=== PATIENT | female | born 1955 | race Caucasian/White ===

== ENCOUNTER 2016-05-17 17:54 | Inpatient (IN) | payer OTHER ==
[~2016-05-17] VITALS: Ht 170.2 cm; Wt 58.8 kg
[~2016-05-17 17:54] MED LIST: 1-ME1LIQ PO; ALPR0.5T99 PO; CHOL50006 PO; LACTATED RINGER'S 1000 ML INJ 1,000 ML IV ONE; LEVEMIR SQ; METO25 PO; OMEP20TA39 PO; OTHER; PHENYLEPH/NS 1000 MCG/10 ML SYR IV ONE; PREG100 PO; PROPOFOL 200 MG/20 ML AMP IV ONE
[2016-05-17 18:01] VITALS: BP 139/71; PULSE 112; RESP 12; TEMP 97.6; O2SAT 98
--- NOTE | 2016-05-17 19:16 | PD ---
HPI Chief Complaint: Psychiatric Symptoms Time Seen by Provider: 19:16 Travel History International Travel<30 days: No Contact w/Intl Traveler<30days: No Traveled to known affect area: No History of Present Illness HPI 61-year-old female with Hep C hypertension, diabetes, presents to emergency department at the instruction of her primary care provider Dr. Torrez for evaluation. Pt states that she was also diagnosed with HIV 8 months ago and does not know her CD4 count- I do not see this in the pt's history. Patient's dog passed was last week and she has been increasingly depressed. She has not been getting out of bed. She has not been taking her medications. She has not been eating or drinking. Patient fell 2 days ago and struck her head. She is accompanied by a female friend or family member who states that she has been more disoriented and confused lately. She states that she has been less steady on her feet. No recent illnesses, fever, chills. No chest pain or tightness. No other focal deficits or weakness. PFSH Past Medical History Arthritis: No Autoimmune Disease: Yes Blood Disorders: No Anxiety: Yes Cancer: No Cardiovascular Problems: No Diabetes: Yes Diminished Hearing: No Endocrine: Yes Gastrointestinal Disorders: Yes (ACID REFLUX ) Glaucoma: No Genitourinary: No Hepatitis: Yes (HEPATITIS C ) Hiatal Hernia: No Hypertension: Yes Immune Disorder: No Implanted Vascular Access Dvce: No Musculoskeletal: No Neurologic: Yes (NEUROPATHY BOTH FEET) Psychiatric: Yes (ANXIETY; SITUATIONAL DEPRESSION ) Reproductive: No Respiratory: No Thyroid Disease: No PNEUMOCCOCAL Vaccine (Year): 2 Menopausal: Yes Tubal Ligation: Yes Past Surgical History Abdominal Surgery: No AICD: No Body Medical Devices: NONE Cardiac Surgery: No Ear Surgery: No Endocrine Surgery: No Eye Surgery: Yes (LEFT/RIGHT CATARACT WITH LENS, UPPER LID BLEPHROPLASTY) Genitourinary Surgery: No Gynecologic Surgery: Yes (TUBAL LIGATION) Joint Replacement: No Oral Surgery: Yes (T & A) Pacemaker: No Thoracic Surgery: No Tonsillectomy: Yes Other Surgery: Yes Social History Alcohol Use: No Tobacco Use: No Substance Use: No Allergies-Medications (Allergen,Severity, Reaction): Coded Allergies: Iohexol (OMNIPAQUE) (Verified Allergy, Severe, Hives, 07/06/15) date of allergy 2/27/12: facial hives and itching Codeine (Verified Adverse Reaction, Severe, NAUSEA, 07/06/15) Reported Meds & Prescriptions Reported Meds & Active Scripts Active Reported [Other] WEEKLY Vitamin D (Cholecalciferol) 5,000 Unit Tab 2,000 Unit PO DAILY Amlodipine Besylate 10 mg (Amlodipine Besylate) 10 Mg Tab 1 Tab PO DAILY Metoprolol Tartrate 25 mg (Metoprolol Tartrate) 25 Mg Tab 25 Mg PO BID Hm Omeprazole (Omeprazole) 20 Mg Tab 20 Mg PO DAILY Levemir Insulin (Insulin Detemir) 100 Units/Ml Inj 10 Units SQ BID Lyrica (Pregabalin) 100 Mg Cap 100 Mg PO BID Xanax (Alprazolam) 0.5 Mg Tab 0.5 Mg PO DAILYPRN Review of Systems Except as stated in HPI: all other systems reviewed are Neg Physical Exam Narrative GENERAL: Thin female patient, sitting in her wheelchair, lethargic but participating in conversation slowly and with some confusion. Oriented to self and knows she is in the hospital SKIN: Warm and dry. HEAD: Normocephalic. EYES: No scleral icterus. No injection or drainage. ENT: No nasal bleeding or discharge. Mucous membranes pink and moist. NECK: Trachea midline. No JVD. CARDIOVASCULAR tachycardic rate and rhythm. No murmur appreciated. RESPIRATORY: No accessory muscle use. Clear to auscultation. Breath sounds equal bilaterally. GASTROINTESTINAL: Abdomen soft, non-tender, nondistended. Hepatic and splenic margins not palpable. MUSCULOSKELETAL: No obvious deformities. No clubbing. No cyanosis. No edema. NEUROLOGICAL: Awake and alert. No obvious cranial nerve deficits. Motor grossly within normal limits. Normal speech. PSYCHIATRIC: Appropriate mood and affect; insight and judgment normal. Data Data Last Documented VS Vital Signs Date Time Temp Pulse Resp B/P Pulse Ox O2 Delivery O2 Flow Rate FiO2 05/17/16 18:01 97.6 112 12 139/71 98 Room Air Orders Electrocardiogram (05/17/16 19:14) Complete Blood Count With Diff (05/17/16 19:14) Comprehensive Metabolic Panel (05/17/16 19:14) Prothrombin Time / Inr (Pt) (05/17/16 19:14) Act Partial Throm Time (Ptt) (05/17/16 19:14) Lactic Acid Sepsis Protocol (05/17/16 19:14) Magnesium (Mg) (05/17/16 19:14) Ckmb (Isoenzyme) Profile (05/17/16 19:14) Troponin I (05/17/16 19:14) Urinalysis - C+S If Indicated (05/17/16 19:14) Blood Culture (05/17/16 19:14) Chest, Single Ap (05/17/16 19:14) Ct Brain W/O Iv Contrast(Rout) (05/17/16 19:14) Drug Screen, Random Urine (05/17/16 20:13) Alcohol (Ethanol) (05/17/16 20:13) Labs Laboratory Tests Test 05/17/16 19:23 White Blood Count 9.1 TH/MM3 Red Blood Count 4.02 MIL/MM3 Hemoglobin 14.9 GM/DL Hematocrit 43.9 % Mean Corpuscular Volume 109.2 FL Mean Corpuscular Hemoglobin 37.0 PG Mean Corpuscular Hemoglobin 33.9 % Concent Red Cell Distribution Width 14.1 % Platelet Count 259 TH/MM3 Mean Platelet Volume 9.4 FL Neutrophils (%) (Auto) 77.8 % Lymphocytes (%) (Auto) 11.6 % Monocytes (%) (Auto) 10.3 % Eosinophils (%) (Auto) 0.1 % Basophils (%) (Auto) 0.2 % Neutrophils # (Auto) 7.1 TH/MM3 Lymphocytes # (Auto) 1.1 TH/MM3 Monocytes # (Auto) 0.9 TH/MM3 Eosinophils # (Auto) 0.0 TH/MM3 Basophils # (Auto) 0.0 TH/MM3 CBC Comment DIFF FINAL Differential Comment Prothrombin Time 12.2 SEC Prothromb Time International 1.1 RATIO Ratio Activated Partial 27.9 SEC Thromboplast Time Lactic Acid Level 1.9 mmol/L MDM Medical Decision Making Medical Screen Exam Complete: Yes Emergency Medical Condition: Yes Medical Record Reviewed: Yes Differential Diagnosis Intracranial hemorrhage versus elective right abnormality versus dehydration versus AIDS Narrative Course 61-year-old female presents to emergency department for evaluation. Workup was initiated in triage. 1946 patient is brought back CT and I am told by the it service technician the patient has a subdural hemorrhage with a shift. Patient is transferred immediately to a medical bed. 2019 I contacted Janice Samayoa listed as person to contact in summary. she initially brought the pt to the hospital. I briefed her on the pt's diagnosis and asked her to return to the ED. Condition: Stable Shanna Sanchez May 17, 2016 19:16
--- NOTE | 2016-05-17 19:58 | RADRPT ---
EXAM DATE/TIME: 05/17/2016 19:39 [facility] COMPARISON: CT BRAIN W/O CONTRAST, July 06, 2015, 10:09. INDICATIONS : Altered mental status. Possible trauma. RADIATION DOSE: 43.27 CTDIvol (mGy) MEDICAL HISTORY : Hypertension. Hepatitis C. SURGICAL HISTORY : Tonsillectomy. Tubal ligation. ENCOUNTER: Initial ACUITY: 3 days PAIN SCALE: 5/10 LOCATION: cranial TECHNIQUE: Multiple contiguous axial images were obtained of the head. Using automated exposure control and adj ustment of the mA and/or kV according to patient size, radiation dose was kept as low as reasonably a chievable to obtain optimal diagnostic quality images. FINDINGS: There is an acute subdural hematoma tracking along the falx. This measures 9 mm in thickness. A subac melvina to chronic subdural hematoma overlies the left cerebral hemisphere. The thickest component is 16 mm overlying the left frontotemporal lobe. There is 13 mm of [id number] midline shift with partial effacement of the left lateral ventricle. There is obscuration of the suprasellar cistern consistent with uncal herniation. Posterior cranial fossa is unremarkable. Edema is seen throughout the left ce rebral hemisphere with effacement of the sulcal pattern. Calvarium is intact. CONCLUSION: 1. Acute subdural hematoma along the falx with a subacute to chronic subdural hematoma overlying the left cerebral hemisphere with 13 mm of midline shift as well as uncal herniation. Ashish Roth Jr., MD on May 17, 2016 at 19:52 Board Certified Radiologist. This report was verified electronically.
[2016-05-17 20:04] LABS: AUTOMATED NEUTROPHIL # 7.1 TH/MM3 (1.8-7.7); BASOPHIL % 0.2 % (0.0-2.0); EOSINOPHIL % 0.1 % (0.0-4.0); HEMATOCRIT 43.9 % (35.0-46.0); HEMO FLAGS DIFF FINAL; LYMPH % 11.6 % (9.0-44.0); LYMPHOCYTE # 1.1 TH/MM3 (1.0-4.8); MEAN CELL VOLUME 109.2 FL (80.0-100.0); MEAN CORPUSCULAR HGB CONC 33.9 % (32.0-36.0); MONO % 10.3 % (0.0-8.0); NEUT % 77.8 % (16.0-70.0); PLATELET COUNT 259 TH/MM3 (150-450); RED BLOOD COUNT 4.02 MIL/MM3 (4.00-5.30); RED CELL DISTRIBUTION WIDTH 14.1 % (11.6-17.2); WHITE BLOOD COUNT 9.1 TH/MM3 (4.0-11.0)
[2016-05-17 20:12] LABS: APTT (PATIENT) 27.9 SEC (24.3-30.1); INTERNATIONAL NORMALIZED RATIO 1.1 RATIO; PROTHROMBIN TIME - PATIENT 12.2 SEC (9.8-11.6)
--- NOTE | 2016-05-17 20:25 | RADRPT ---
EXAM DATE/TIME: 05/17/2016 20:00 [facility] COMPARISON: No previous studies available for comparison. INDICATIONS : Short of breath. MEDICAL HISTORY : Stroke. SURGICAL HISTORY : None. ENCOUNTER: Initial ACUITY: 1 day PAIN SCORE: Non-responsive. LOCATION: Bilateral chest FINDINGS: A single view of the chest demonstrates the lungs to be symmetrically aerated without evidence of mas s, infiltrate or effusion. The cardiomediastinal contours are unremarkable. Osseous structures are intact. CONCLUSION: No acute disease. Ashish Roth Jr., MD on May 17, 2016 at 20:24 Board Certified Radiologist. This report was verified electronically.
[2016-05-17 20:29] LABS: ALT (GPT) 43 U/L (10-53); ANION GAP 22 MEQ/L (5-15); AST (GOT) 30 U/L (15-37); BICARBONATE 9.4 MEQ/L (21.0-32.0); BLOOD UREA NITROGEN 11 MG/DL (7-18); CHLORIDE 101 MEQ/L (98-107); GLOMERULAR FILTRATION RATE 68 ML/MIN (>89); MAGNESIUM 2.1 MG/DL (1.5-2.5); POTASSIUM 3.5 MEQ/L (3.5-5.1); SODIUM (NA) 132 MEQ/L (136-145)
[2016-05-17 20:32] LABS: ALKALINE PHOSPHATASE 127 U/L (45-117); TOTAL BILIRUBIN ADULT 1.4 MG/DL (0.2-1.0)
[2016-05-17 20:34] LABS: CREATINE KINASE 29 U/L (26-192)
[2016-05-17] MEDS ORDERED: GENTAMICIN SULFATE 80 MG/2 ML VIAL ONE (20:36)
--- NOTE | 2016-05-17 20:37 | PD ---
Physical Exam Narrative General: The patient is well-developed well-nourished female in no acute distress, tremulous on examination when asked why she reports she feels ill. She reports that she fell and now has a mild headache. Head and Neck exam: Head is normocephalic atraumatic. Eyes: EOMI, the patient's left pupil on examination is slightly larger than the right. This is so subtle that it's difficult to say if this is a legitimate finding. Nose: Midline septum with pink mucous membranes Mouth: Dentition unremarkable. Moist mucus membranes. Posterior oropharynx is not erythematous. No tonsillar hypertrophy. Uvula midline. Airway patent. Neck: No palpable lymphadenopathy. No nuchal rigidity. No thyromegaly. Cardiovascular: Sinus tachycardia in the low 100s without murmurs, gallops, or rubs. No pulse deficits of the extremities on simultaneous auscultation and palpation of her radial artery. Lungs: Clear to auscultation bilaterally. No wheezes, rhonchi, or rales. Abdomen: Soft, without tenderness to palpation in all 4 quadrants of the abdomen. No guarding, rebound, or rigidity. Normal bowel sounds are audible. The patient has some bruising noted to the upper abdomen that appears to be patchy. These are older appearing small bruises. These may be related to subcutaneous injections. Extremities: No clubbing, cyanosis, or edema. 2+ pulses in all 4 extremities. No calf tenderness on palpation. Neurologic Exam: She is oriented to person, however not time Cranial nerves 2-12 were intact on exam. Strength is 5/5 in all 4 extremities. No sensory deficits noted. No dysdiadochokinesis. Good finger to nose and Heel to reid bilaterally. No clonus. The patient does have asterixis. The patient has tremulousness most prominent in bilateral upper extremities both active and resting tremor. Skin Exam: No rash noted. Intact skin that is warm and dry. Data Data Last Documented VS Vital Signs Date Time Temp Pulse Resp B/P Pulse Ox O2 Delivery O2 Flow Rate FiO2 05/17/16 18:01 97.6 112 12 139/71 98 Room Air Orders Electrocardiogram (05/17/16 19:14) Complete Blood Count With Diff (05/17/16 19:14) Comprehensive Metabolic Panel (05/17/16 19:14) Prothrombin Time / Inr (Pt) (05/17/16 19:14) Act Partial Throm Time (Ptt) (05/17/16 19:14) Lactic Acid Sepsis Protocol (05/17/16 19:14) Magnesium (Mg) (05/17/16 19:14) Ckmb (Isoenzyme) Profile (05/17/16 19:14) Troponin I (05/17/16 19:14) Urinalysis - C+S If Indicated (05/17/16 19:14) Blood Culture (05/17/16 19:14) Chest, Single Ap (05/17/16 19:14) Ct Brain W/O Iv Contrast(Rout) (05/17/16 19:14) Drug Screen, Random Urine (05/17/16 20:13) Alcohol (Ethanol) (05/17/16 20:13) Gentamicin Inj (Gentamicin Inj) (05/17/16 20:36) Admit To Inpatient (05/17/16 ) Vital Signs (Adult) Q1H (05/17/16 20:39) Neuro Checks Q1H (05/17/16 20:39) Ot Request For Service (05/17/16 20:39) Consult Pt Eval & Treat (05/17/16 20:39) Case Management Consult (05/17/16 ) ^ Elevate Head Of Bed (05/17/16 20:39) Insert Ng Tube (05/17/16 20:39) Complete Blood Count With Diff (05/18/16 06:00) Basic Metabolic Panel (Bmp) (05/18/16 06:00) Prothrombin Time / Inr (Pt) (05/18/16 06:00) Hepatic Functional Panel (05/18/16 06:00) Fibrinogen (05/18/16 06:00) Ct Brain W/O Iv Contrast(Rout) (05/18/16 06:00) Resp Oxygen Gene C Titrat 1-4 L (05/17/16 ) Sodium Chlor 0.9% 1000 Ml Inj (Ns 1000 M (05/17/16 20:39) Sodium Chloride 0.9% Flush (Ns Flush) (05/17/16 20:45) Sodium Chloride 0.9% Flush (Ns Flush) (05/17/16 21:00) Labetalol Inj (Trandate Inj) (05/17/16 20:45) Pantoprazole Inj (Protonix Inj) (05/18/16 09:00) Acetaminophen (Tylenol) (05/17/16 20:45) Morphine Inj (Morphine Inj) (05/17/16 20:45) Levetiracetam Inj (Keppra Inj) (05/17/16 20:45) Ondansetron Inj (Zofran Inj) (05/17/16 20:45) Docusate Sodium (Colace) (05/17/16 20:45) Scd Bilateral/Knee High JEFF.QSHIFT (05/17/16 20:39) [employer] Consultant / Telemetry (05/17/16 20:39) Inpatient Certification (05/17/16 ) Admit Order (Ed Use Only) (05/17/16 20:44) Ammonia (05/17/16 20:44) Labs Laboratory Tests Test 05/17/16 19:23 White Blood Count 9.1 TH/MM3 Red Blood Count 4.02 MIL/MM3 Hemoglobin 14.9 GM/DL Hematocrit 43.9 % Mean Corpuscular Volume 109.2 FL Mean Corpuscular Hemoglobin 37.0 PG Mean Corpuscular Hemoglobin 33.9 % Concent Red Cell Distribution Width 14.1 % Platelet Count 259 TH/MM3 Mean Platelet Volume 9.4 FL Neutrophils (%) (Auto) 77.8 % Lymphocytes (%) (Auto) 11.6 % Monocytes (%) (Auto) 10.3 % Eosinophils (%) (Auto) 0.1 % Basophils (%) (Auto) 0.2 % Neutrophils # (Auto) 7.1 TH/MM3 Lymphocytes # (Auto) 1.1 TH/MM3 Monocytes # (Auto) 0.9 TH/MM3 Eosinophils # (Auto) 0.0 TH/MM3 Basophils # (Auto) 0.0 TH/MM3 CBC Comment DIFF FINAL Differential Comment Prothrombin Time 12.2 SEC Prothromb Time International 1.1 RATIO Ratio Activated Partial 27.9 SEC Thromboplast Time Sodium Level 132 MEQ/L Potassium Level 3.5 MEQ/L Chloride Level 101 MEQ/L Carbon Dioxide Level 9.4 MEQ/L Anion Gap 22 MEQ/L Blood Urea Nitrogen 11 MG/DL Creatinine 0.85 MG/DL Estimat Glomerular Filtration 68 ML/MIN Rate Random Glucose 193 MG/DL Lactic Acid Level 1.9 mmol/L Calcium Level 9.8 MG/DL Magnesium Level 2.1 MG/DL Total Bilirubin 1.4 MG/DL Aspartate Amino Transf 30 U/L (AST/SGOT) Alanine Aminotransferase 43 U/L (ALT/SGPT) Alkaline Phosphatase 127 U/L Total Creatine Kinase 29 U/L Troponin I LESS THAN 0.02 NG/ML Total Protein 10.8 GM/DL Albumin 4.4 GM/DL [facility] Medical Record Reviewed: Yes Supervised Visit with TINO: Yes Interpretation(s) Last Impressions Head CT 05/17/161913 Signed Impressions: Service Date/Time: Tuesday, May 17, 2016 19:39 - CONCLUSION: 1. Acute subdural hematoma along the falx with a subacute to chronic subdural hematoma overlying the left cerebral hemisphere with 13 mm of midline shift as well as uncal herniation. Ashish Roth Jr., MD Chest X-Ray 05/17/161913 Signed Impressions: Service Date/Time: Tuesday, May 17, 2016 20:00 - CONCLUSION: No acute disease. Ashish Roth Jr., MD Narrative Course During the course of the patients emergency department visit, the patients history, examination, and differential diagnosis were reviewed with the patient. The patient had IV access obtained and blood work sent for analysis. The patient was placed on a court monitor with oximetry and blood pressure monitoring. An EKG was done on arrival back to the room. The patient's EKG shows a sinus tachycardia, heart rate of 100, QRS duration 79 ms QTC 370 ms, nonspecific T-wave abnormalities, no acute ST segment elevation or depression. The patient was initially evaluated by Shanna, the nurse practitioner, prior to being brought back to an emergency department that. Please see her initial history and physical. As I was involved in a trauma alert, Sarath, the physician office support assistant working with me in my area seems care of the patient when she arrived back in the room. He was instructed upon the patient's arrival back in the room that she had are gone to CT and the CT of the brain had abnormalities consistent with subdural hematoma and midline shift. He immediately evaluated the patient and called neurosurgery. The patient will be taken to the OR emergently. The patients laboratory studies were reviewed and remarkable for a white count of 9.1, hemoglobin 14.9, platelets 259 with 77.8 neutrophils, lymphocytes 11.6, monocytes 10.3. CMP is remarkable for sodium of 132, CO2 is 9.4, anion gap 22, glucose 193, total bilirubin 1.4, alkaline phosphatase 127 cardiac enzymes are unremarkable. Lactic acid 1.9, INR 1.1, PT 12.2, PTT 27.9. An ammonia level was added by me. A urine drug screen is pending, alcohol level is pending. Radiology studies were reviewed and remarkable for a chest x-ray is unremarkable. CT scan of the brain shows an acute subdural hematoma along the falx with a subacute to chronic subdural hematoma overlying the left cerebral hemisphere with 13 mm of midline shift as well as uncal herniation. The patient is in the process of being prepped to go to the OR emergently. The patients results were discussed with the patient, including the plan of care. I explained that further testing and/ or monitoring is indicated based on the patients history, examination, and/ or laboratory findings. Therefore, I recommended admission for additional evaluation. The patient expressed understanding and was agreeable with this plan. The patient was admitted to the hospital in guarded condition and sent to a bed under the care of the neurosurgeon. Sepsis Criteria SIRS Criteria (2 or more): Heart rate over 90 Diagnosis Primary Impression: Subdural hematoma Additional Impressions: Midline shift of brain Altered mental status Qualified Code: R41.0 - Disorientation Admitting Information Admitting Physician Requests: Admit Condition: Stable Lorrie Doe MD May 17, 2016 20:37
[2016-05-17] MEDS ORDERED: SODIUM CHLOR 0.9% 1000 ML INJ 1,000 ML IV SCH (20:39)
[2016-05-17] MEDS ORDERED: SODIUM CHLORIDE 0.9% FLUSH 5 ML FLUSH IVF PRN (20:45)
[2016-05-17] MEDS ORDERED: LABETALOL HCL 100 MG/20 ML VIAL IV PRN (20:45)
[2016-05-17] MEDS ORDERED: DOCUSATE SODIUM 100 MG CAP PO PRN (20:45)
--- NOTE | 2016-05-17 21:09 | PD ---
Physical Exam Narrative Patient states this seemed in triage. Please see his(documentation for H&P. Briefly patient was brought to the Emergency department reported being more confused and falling recently. Patient states that she fell approximately 2 days ago hitting her head. Patient reports slight headache. Patient anything making it better or worse. Denies any numbness or tingling anywhere, chest pain , shortness breath, change in bowel or bladder, nausea, vomiting. GENERAL: Well-developed, well nourished, in no acute distress, and non-ill appearing. SKIN: Warm and dry. HEAD: Atraumatic. Normocephalic. EYES: Pupils equal and round. EOMI. No scleral icterus. No injection or drainage. ENT: No nasal bleeding or discharge. Mucous membranes pink and moist. NECK: Trachea midline. Supple. No nuclear rigidity. CARDIOVASCULAR: Regular rate and rhythm. No murmur appreciated. RESPIRATORY: No accessory muscle use. No respiratory distress. Clear to auscultation. Breath sounds equal bilaterally. MUSCULOSKELETAL: No obvious deformities. No clubbing. No cyanosis. No edema. Full range of motion. NEUROLOGICAL: Awake and alert. No obvious cranial nerve deficits. Motor grossly within normal limits. Normal speech. PSYCHIATRIC: Patient is oriented to name and date of , however patient pleases 1978 and that she is in Dr. Torrez's office. He hash patient is retracted on the she still continues to pleases 1978 and that she is in Dr. Torrez's office. Data Data Last Documented VS Vital Signs Date Time Temp Pulse Resp B/P Pulse Ox O2 Delivery O2 Flow Rate FiO2 05/17/16 18:01 97.6 112 12 139/71 98 Room Air Orders Electrocardiogram (05/17/16 19:14) Complete Blood Count With Diff (05/17/16 19:14) Comprehensive Metabolic Panel (05/17/16 19:14) Prothrombin Time / Inr (Pt) (05/17/16 19:14) Act Partial Throm Time (Ptt) (05/17/16 19:14) Lactic Acid Sepsis Protocol (05/17/16 19:14) Magnesium (Mg) (05/17/16 19:14) Ckmb (Isoenzyme) Profile (05/17/16 19:14) Troponin I (05/17/16 19:14) Urinalysis - C+S If Indicated (05/17/16 19:14) Blood Culture (05/17/16 19:14) Chest, Single Ap (05/17/16 19:14) Ct Brain W/O Iv Contrast(Rout) (05/17/16 19:14) Drug Screen, Random Urine (05/17/16 20:13) Alcohol (Ethanol) (05/17/16 20:13) Gentamicin Inj (Gentamicin Inj) (05/17/16 20:36) Admit To Inpatient (05/17/16 ) Vital Signs (Adult) Q1H (05/17/16 20:39) Neuro Checks Q1H (05/17/16 20:39) Ot Request For Service (05/17/16 20:39) Consult Pt Eval & Treat (05/17/16 20:39) Case Management Consult (05/17/16 ) ^ Elevate Head Of Bed (05/17/16 20:39) Insert Ng Tube (05/17/16 20:39) Complete Blood Count With Diff (05/18/16 06:00) Basic Metabolic Panel (Bmp) (05/18/16 06:00) Prothrombin Time / Inr (Pt) (05/18/16 06:00) Hepatic Functional Panel (05/18/16 06:00) Fibrinogen (05/18/16 06:00) Ct Brain W/O Iv Contrast(Rout) (05/18/16 06:00) Resp Oxygen Gene C Titrat 1-4 L (05/17/16 ) Sodium Chlor 0.9% 1000 Ml Inj (Ns 1000 M (05/17/16 20:39) Sodium Chloride 0.9% Flush (Ns Flush) (05/17/16 20:45) Sodium Chloride 0.9% Flush (Ns Flush) (05/17/16 21:00) Labetalol Inj (Trandate Inj) (05/17/16 20:45) Pantoprazole Inj (Protonix Inj) (05/18/16 09:00) Acetaminophen (Tylenol) (05/17/16 20:45) Morphine Inj (Morphine Inj) (05/17/16 20:45) Levetiracetam Inj (Keppra Inj) (05/17/16 21:00) Ondansetron Inj (Zofran Inj) (05/17/16 20:45) Docusate Sodium (Colace) (05/17/16 20:45) Scd Bilateral/Knee High JEFF.QSHIFT (05/17/16 20:39) Padder / Telemetry (05/17/16 20:39) Inpatient Certification (05/17/16 ) Admit Order (Ed Use Only) (05/17/16 20:44) Ammonia (05/17/16 20:44) Labs Laboratory Tests Test 05/17/16 19:23 White Blood Count 9.1 TH/MM3 Red Blood Count 4.02 MIL/MM3 Hemoglobin 14.9 GM/DL Hematocrit 43.9 % Mean Corpuscular Volume 109.2 FL Mean Corpuscular Hemoglobin 37.0 PG Mean Corpuscular Hemoglobin 33.9 % Concent Red Cell Distribution Width 14.1 % Platelet Count 259 TH/MM3 Mean Platelet Volume 9.4 FL Neutrophils (%) (Auto) 77.8 % Lymphocytes (%) (Auto) 11.6 % Monocytes (%) (Auto) 10.3 % Eosinophils (%) (Auto) 0.1 % Basophils (%) (Auto) 0.2 % Neutrophils # (Auto) 7.1 TH/MM3 Lymphocytes # (Auto) 1.1 TH/MM3 Monocytes # (Auto) 0.9 TH/MM3 Eosinophils # (Auto) 0.0 TH/MM3 Basophils # (Auto) 0.0 TH/MM3 CBC Comment DIFF FINAL Differential Comment Prothrombin Time 12.2 SEC Prothromb Time International 1.1 RATIO Ratio Activated Partial 27.9 SEC Thromboplast Time Sodium Level 132 MEQ/L Potassium Level 3.5 MEQ/L Chloride Level 101 MEQ/L Carbon Dioxide Level 9.4 MEQ/L Anion Gap 22 MEQ/L Blood Urea Nitrogen 11 MG/DL Creatinine 0.85 MG/DL Estimat Glomerular Filtration 68 ML/MIN Rate Random Glucose 193 MG/DL Lactic Acid Level 1.9 mmol/L Calcium Level 9.8 MG/DL Magnesium Level 2.1 MG/DL Total Bilirubin 1.4 MG/DL Aspartate Amino Transf 30 U/L (AST/SGOT) Alanine Aminotransferase 43 U/L (ALT/SGPT) Alkaline Phosphatase 127 U/L Total Creatine Kinase 29 U/L Troponin I LESS THAN 0.02 NG/ML Total Protein 10.8 GM/DL Albumin 4.4 GM/DL MDM Supervised Visit with TINO: No Physician Communication Physician Communication [address] Danna, neurosurgeon on-call, who will admit the patient and take her to the OR for emergent surgery. Diagnosis Primary Impression: Subdural hematoma Additional Impressions: Midline shift of brain Altered mental status Qualified Code: R41.0 - Disorientation Condition: Stable Sarath Stroud May 17, 2016 21:09
[2016-05-17 21:25] LABS: AMPHETAMINE, URINE NEG (NEG); BARBITURATES, URINE NEG (NEG); COCAINE, URINE NEG (NEG)
[2016-05-17 21:29] LABS: BLOOD, URINE SMALL (NEG); COMMENT (UR) CULT NOT INDICATED; CULTURE IF INDICATED CULT NOT INDICATED; GLUCOSE,URINE 1000 mg/dL (NEG); HYALINE CAST, URINE 3 /lpf (RARE); KETONE, URINE 150 mg/dL (NEG); NITRITE,URINE NEG (NEG); PH, URINE 5.5 (5.0-8.5); URINE COLOR YELLOW (YELLW/STRAW)
[2016-05-17] MEDS ORDERED: ceFAZolin INJ 1,000 MG VIAL IV ONE (21:45)
[2016-05-17] MEDS ORDERED: LIDOCAINE 1%/EPINEPHrine 1:200,000 PF SOLN 10 ML VIAL INFIL ONE (21:52)
[2016-05-17] MEDS ORDERED: THROMBIN (TOPICAL) 5,000 UNIT VIAL TOPICAL ONE (21:52)
[2016-05-17 23:26] VITALS: O2SAT 100
[2016-05-17] MEDS ORDERED: fentaNYL CITRATE 250 MCG/5 ML AMP ONE (23:44)
[2016-05-17] MEDS ORDERED: DO NOT ADM ANY ANTICOAGULANT DRUGS XX PRN (23:45)
[2016-05-17] MEDS ORDERED: PROPOFOL 1000 MG/100 ML IV SCH (23:45)
[2016-05-17] MEDS ORDERED: PROPOFOL 1000 MG/100 ML INJ 100 ML ONE (23:45)
[2016-05-18] VITALS (18 sets, daily range): BP systolic 115–174; BP diastolic 52–84; PULSE 67–107; RESP 6–20; TEMP 98.4–98.8; O2SAT 96–100
[2016-05-18] MEDS ORDERED: *morphine SULFATE 8 MG/ML PERIprocedure ONLY ONE (00:08)
[2016-05-18 00:17] LABS: BLOOD GAS BASE EXCESS -15.6 mmol/L (-2-2); BLOOD GAS CARBOXYHEMOGLOBIN 2.7 % (0-4); BLOOD GAS HCO3 10 mmol/L (22-26); BLOOD GAS METHEMOGLOBIN 1.1 % (0-2); BLOOD GAS O2 HGB SATURATION 97 % (90-100); BLOOD GAS PCO2 24 mmHg (38-42); BLOOD GAS PO2 298 mmHg (61-120); BLOOD GAS TOTAL HGB 13.5 G/DL (12.0-16.0); TEMP CORR TO 98.6
[2016-05-18 00:18] LABS: CRITICAL VALUE YES; OXYGEN DEVICE VENTILATOR; VENT SETTINGS SIMV/
[2016-05-18 00:19] LABS: DRAW SITE ART LINE; FIO2 60 %; STAT YES
[2016-05-18] MEDS: PANTOPRAZOLE SOD 20 MG DELAYED RELEASE TAB PO SCH ×2 (00:30→08:09)
[2016-05-18] MEDS ORDERED: LACTATED RINGER'S 1000 ML INJ 1,000 ML IV SCH (00:40)
[2016-05-18 01:21] LABS: BLOOD GAS BASE EXCESS -15.6 mmol/L (-2-2); BLOOD GAS CARBOXYHEMOGLOBIN 2.6 % (0-4); BLOOD GAS HCO3 10 mmol/L (22-26); BLOOD GAS METHEMOGLOBIN 1.2 % (0-2); BLOOD GAS O2 HGB SATURATION 97 % (90-100); BLOOD GAS OXYGEN CONTENT 17.1 Vol % (12.0-20.0); BLOOD GAS PCO2 23 mmHg (38-42); BLOOD GAS PO2 295 mmHg (61-120); BLOOD GAS TOTAL HGB 12.1 G/DL (12.0-16.0); CRITICAL VALUE YES; OXYGEN DEVICE VENTILATOR; TEMP CORR TO 98.6
[2016-05-18 01:22] LABS: DRAW SITE ART LINE; FIO2 60 %; STAT YES; VENT SETTINGS SIMV
[2016-05-18] MEDS: MORPHINE SULFATE 8 MG/ML INJ IV PUSH PRN ×3 (02:39→23:42)
[2016-05-18] MEDS: SODIUM BICARBONATE 8.4% SOLN 50 MEQ/50 ML VIAL IV SCH ×2 (02:49→02:50)
[2016-05-18 03:20] LABS: AUTOMATED NEUTROPHIL # 4.8 TH/MM3 (1.8-7.7); BASOPHIL % 0.1 % (0.0-2.0); HEMO FLAGS DIFF FINAL; LYMPH % 11.4 % (9.0-44.0); LYMPHOCYTE # 0.7 TH/MM3 (1.0-4.8); MEAN CELL VOLUME 106.4 FL (80.0-100.0); MEAN CORPUSCULAR HEMOGLOBIN 35.5 PG (27.0-34.0); MEAN CORPUSCULAR HGB CONC 33.4 % (32.0-36.0); MONO % 3.9 % (0.0-8.0); NEUT % 84.6 % (16.0-70.0); PLATELET COUNT 161 TH/MM3 (150-450); RED BLOOD COUNT 3.29 MIL/MM3 (4.00-5.30); RED CELL DISTRIBUTION WIDTH 13.8 % (11.6-17.2); WHITE BLOOD COUNT 5.7 TH/MM3 (4.0-11.0)
[2016-05-18 03:32] LABS: INTERNATIONAL NORMALIZED RATIO 1.1 RATIO; PROTHROMBIN TIME - PATIENT 12.2 SEC (9.8-11.6)
[2016-05-18 03:50] LABS: BICARBONATE 18.5 MEQ/L (21.0-32.0); INDIRECT BILIRUBIN 0.6 MG/DL (0.0-0.8); POTASSIUM 3.7 MEQ/L (3.5-5.1); TOTAL BILIRUBIN ADULT 1.1 MG/DL (0.2-1.0)
[2016-05-18] MEDS: SODIUM BICARBONATE 8.4% INJ 150 MEQ in WATER STERILE FOR INJ 1,000 ML IV SCH ×2 (04:10→14:30)
--- NOTE | 2016-05-18 05:21 | PD.CONS ---
HPI Service Critical Care Medicine Consult Requested By Primary Care Physician Harjit Lebron MD History of Present Illness 61-year-old female with Hep C hypertension, diabetes, HIV diagnosed 8 months ago presents She felt depressed for about a week and has not been getting out of bed. She has not been taking her medications. She has not been eating or drinking. Patient fell 2 days ago and struck her head. She was found to have SDH and was emergently taken to OR Past Family Social History Allergies: Coded Allergies: Iohexol (OMNIPAQUE) (Verified Allergy, Severe, Hives, 07/06/15) date of allergy 06/20/11: facial hives and itching Codeine (Verified Adverse Reaction, Severe, NAUSEA, 07/06/15) Past Medical History DM HTN HIV?? Past Surgical History Unable to obtain, patient is sedated and intubated Reported Medications Unable to obtain, patient is sedated and intubated Active Ordered Medications Current Medications Medications (Trade) Dose Ordered Sig/Courtney Route PRN Reason Start Time Stop Time Status Last Admin Dose Admin IV Flush (NS Flush) 2 ml UNSCH PRN IVF FLUSH AFTER USING IV ACCESS 05/17/16 20:45 IV Flush (NS Flush) 2 ml BID IVF 05/17/16 21:00 Labetalol HCl (Trandate Inj) 20 mg Q4H PRN IV SYS BP GREATER THAN 160 MMHG 05/17/16 20:45 Pantoprazole Sodium (Protonix Inj) 40 mg DAILY IVP 05/18/16 09:00 Acetaminophen (Tylenol) 650 mg Q4H PRN PO PAIN SCALE 1 TO 10 05/17/16 20:45 Morphine Sulfate 5 mg 5 mg Q4H PRN IV PUSH BREAKTHROUGH PAIN 05/17/16 20:45 05/18/16 02:39 Levetriacetam/ Sodium Chloride (Keppra Inj/NS Inj) 105 ml @ 400 mls/hr Q12H IV 05/17/16 21:00 05/18/16 00:00 Ondansetron HCl (Zofran Inj) 4 mg Q6H PRN IV NAUSEA 05/17/16 20:45 Docusate Sodium (Colace) 100 mg BID PRN PO CONSTIPATION 05/17/16 20:45 Miscellaneous Information ALL NURSING DEPARTME... UNSCH PRN XX SEE LABEL COMMENTS 05/17/16 23:45 05/18/16 23:44 Propofol (Diprivan 1000 Mg/100ml Inj) 100 ml @ 0 mls/hr TITRATE IV 05/17/16 23:45 Metoprolol Tartrate (Lopressor) 25 mg BID PO 05/18/16 09:00 Pregabalin (Lyrica) 100 mg BID PO 05/18/16 09:00 Pantoprazole Sodium 20 mg 20 mg DAILY PO 05/18/16 00:30 Sodium Bicarbonate/ Sterile Water (Sodium Bicarbonate 8.4% Inj/Sterile Water For Inj) 1,150 ml @ 100 mls/hr [id number] IV 05/18/16 03:00 05/18/16 04:10 Family History Unable to obtain, patient is sedated and intubated Social History Unable to obtain, patient is sedated and intubated Physical Exam Vital Signs Vital Signs Date Time Temp Pulse Resp B/P Pulse Ox O2 Delivery O2 Flow Rate FiO2 05/18/16 04:39 100 50 05/18/16 01:45 100 60 05/18/16 01:45 98.4 100 15 174/74 100 05/18/16 01:35 100 05/18/16 01:30 104 8 146/77 99 Mechanical Ventilator 60 05/18/16 01:30 60 05/18/16 01:15 82 8 119/60 99 Mechanical Ventilator 60 05/18/16 01:00 84 8 117/69 99 Mechanical Ventilator 60 126/60 05/18/16 00:45 95 8 127/75 99 Mechanical Ventilator 60 05/18/16 00:30 98 8 139/64 100 Mechanical Ventilator 60 05/18/16 00:29 100 60 05/18/16 00:15 60 05/18/16 00:15 109 12 128/77 99 Mechanical Ventilator 60 05/18/16 00:00 116 11 151/74 100 Mechanical Ventilator 60 141/88 05/17/16 23:45 119 17 165/86 99 Mechanical Ventilator 60 05/17/16 23:26 60 05/17/16 23:26 98.8 127 151/74 99 Mechanical Ventilator 60 142/86 05/17/16 23:26 100 60 05/17/16 18:01 97.6 112 12 139/71 98 Room Air Physical Exam GENERAL: Well-nourished, well-developed patient. SKIN: Warm and dry. HEAD: Normocephalic. EYES: No scleral icterus. No injection or drainage. NECK: Supple, trachea midline. No JVD or lymphadenopathy. CARDIOVASCULAR: Regular rate and rhythm without murmurs, gallops, or rubs. RESPIRATORY: Breath sounds equal bilaterally. No accessory muscle use. GASTROINTESTINAL: Abdomen soft, non-tender, nondistended. MUSCULOSKELETAL: No cyanosis, or edema. BACK: Nontender without obvious deformity. No CVA tenderness. Laboratory Laboratory Tests Test 05/17/16 05/17/16 05/17/16 05/18/16 19:23 20:54 20:55 00:03 White Blood Count 9.1 Red Blood Count 4.02 Hemoglobin 14.9 Hematocrit 43.9 Mean Corpuscular Volume 109.2 Mean Corpuscular Hemoglobin 37.0 Mean Corpuscular Hemoglobin 33.9 Concent Red Cell Distribution Width 14.1 Platelet Count 259 Mean Platelet Volume 9.4 Neutrophils (%) (Auto) 77.8 Lymphocytes (%) (Auto) 11.6 Monocytes (%) (Auto) 10.3 Eosinophils (%) (Auto) 0.1 Basophils (%) (Auto) 0.2 Neutrophils # (Auto) 7.1 Lymphocytes # (Auto) 1.1 Monocytes # (Auto) 0.9 Eosinophils # (Auto) 0.0 Basophils # (Auto) 0.0 CBC Comment DIFF FINAL Differential Comment Prothrombin Time 12.2 Prothromb Time International 1.1 Ratio Activated Partial 27.9 Thromboplast Time Sodium Level 132 Potassium Level 3.5 Chloride Level 101 Carbon Dioxide Level 9.4 Anion Gap 22 Blood Urea Nitrogen 11 Creatinine 0.85 Estimat Glomerular Filtration 68 Rate Random Glucose 193 Lactic Acid Level 1.9 Calcium Level 9.8 Magnesium Level 2.1 Total Bilirubin 1.4 Aspartate Amino Transf 30 (AST/SGOT) Alanine Aminotransferase 43 (ALT/SGPT) Alkaline Phosphatase 127 Total Creatine Kinase 29 Troponin I LESS THAN 0.02 Total Protein 10.8 Albumin 4.4 Urine Color YELLOW Urine Turbidity CLEAR Urine pH 5.5 Urine Specific [place] 1.021 Urine Protein 100 Urine Glucose (UA) 1000 Urine Ketones 150 Urine Occult Blood SMALL Urine Nitrite NEG Urine Bilirubin NEG Urine Urobilinogen 2.0 Urine Leukocyte Esterase NEG Urine RBC 1 Urine WBC LESS THAN 1 Urine Hyaline Casts 3 Microscopic Urinalysis Comment CULT NOT INDICATED Urine Opiates Screen NEG Urine Barbiturates Screen NEG Urine Amphetamines Screen NEG Urine Benzodiazepines Screen POS Urine Cocaine Screen NEG Urine Cannabinoids Screen NEG Ethyl Alcohol Level LESS THAN 3 Blood Gas Puncture Site ART LINE Blood Gas Patient Temperature 98.6 Blood Gas HCO3 10 Blood Gas Base Excess -15.6 Blood Gas Oxygen Saturation 97 Arterial Blood pH 7.25 Arterial Blood Partial 24 Pressure CO2 Arterial Blood Partial 298 Pressure O2 Arterial Blood Oxygen Content 19.0 Arterial Blood 2.7 Carboxyhemoglobin Arterial Blood Methemoglobin 1.1 Blood Gas Hemoglobin 13.5 Oxygen Delivery Device VENTILATOR Blood Gas Ventilator Setting SIMV/ Blood Gas Inspired Oxygen 60 Test 05/18/16 05/18/16 00:54 03:06 Blood Gas Puncture Site ART LINE Blood Gas Patient Temperature 98.6 Blood Gas HCO3 10 Blood Gas Base Excess -15.6 Blood Gas Oxygen Saturation 97 Arterial Blood pH 7.26 Arterial Blood Partial 23 Pressure CO2 Arterial Blood Partial 295 Pressure O2 Arterial Blood Oxygen Content 17.1 Arterial Blood 2.6 Carboxyhemoglobin Arterial Blood Methemoglobin 1.2 Blood Gas Hemoglobin 12.1 Oxygen Delivery Device VENTILATOR Blood Gas Ventilator Setting SIMV Blood Gas Inspired Oxygen 60 White Blood Count 5.7 Red Blood Count 3.29 Hemoglobin 11.7 Hematocrit 35.0 Mean Corpuscular Volume 106.4 Mean Corpuscular Hemoglobin 35.5 Mean Corpuscular Hemoglobin 33.4 Concent Red Cell Distribution Width 13.8 Platelet Count 161 Mean Platelet Volume 8.2 Neutrophils (%) (Auto) 84.6 Lymphocytes (%) (Auto) 11.4 Monocytes (%) (Auto) 3.9 Eosinophils (%) (Auto) 0.0 Basophils (%) (Auto) 0.1 Neutrophils # (Auto) 4.8 Lymphocytes # (Auto) 0.7 Monocytes # (Auto) 0.2 Eosinophils # (Auto) 0.0 Basophils # (Auto) 0.0 CBC Comment DIFF FINAL Differential Comment Prothrombin Time 12.2 Prothromb Time International 1.1 Ratio Fibrinogen 408 Sodium Level 141 Potassium Level 3.7 Chloride Level 106 Carbon Dioxide Level 18.5 Anion Gap 17 Blood Urea Nitrogen 9 Creatinine 0.59 Estimat Glomerular Filtration 103 Rate Random Glucose 154 Calcium Level 8.4 Total Bilirubin 1.1 Direct Bilirubin 0.5 Indirect Bilirubin 0.6 Aspartate Amino Transf 22 (AST/SGOT) Alanine Aminotransferase 34 (ALT/SGPT) Alkaline Phosphatase 90 Ammonia 45 Total Protein 7.9 Albumin 3.3 Date/Time Procedure Status Source Growth 05/17/16 19:30 Aerobic Blood Culture Received Blood Peripheral Pending 05/17/16 19:30 Anaerobic Blood Culture Received Blood Peripheral Pending Result Diagram: 05/18/16 0306 05/18/16 0306 Imaging Last [address] 05/17/161913 Signed Impressions: Service Date/Time: Tuesday, May 17, 2016 19:39 - CONCLUSION: 1. Acute subdural hematoma along the falx with a subacute to chronic subdural hematoma overlying the left cerebral hemisphere with 13 mm of midline shift as well as uncal herniation. Ashish Roth Jr., MD Chest X-Ray 05/17/161913 Signed Impressions: Service Date/Time: Tuesday, May 17, 2016 20:00 - CONCLUSION: No acute disease. Ashish Roth Jr., MD Assessment and Plan Problem List: (1) Subdural hematoma ICD Code: I62.00 Status: Acute (2) Midline shift of brain ICD Code: G93.9 Status: Acute (3) Altered mental status ICD Code: R41.82 Status: Acute Assessment and Plan Respiratory failure - post - op - mechanical ventilation - SBT and wean to extubate when neurologically better SDH - status post [place] evacuation - YUN drain in place - further per NSGY Hep C - monitor LFTs - supportive care Hypertension - resume home meds when extubated - PRN i.v. - SBP goal < 150 Diabetes mellitus - ISS HIV - resume home meds when off vent DVT/GI prophylaxis - TEDs/SCDs/Pepcid Critical Care: The total critical care time was 35 minutes. Time to perform other separately billable procedures was not included in the critical care time. Code Status Full Code Discussed Condition With MEDICAL PATHOLOGIST at Bedside Problem Qualifiers (1) Altered mental status: Qualified Code: R41.0 - Disorientation Ho Feliciano MD May 18, 2016 05:21 Nanda Bobo MD May 18, 2016 18:02
--- NOTE | 2016-05-18 05:37 | EKG ---
Date Performed: 05/17/2016 Time Performed: 20:45:24 PTAGE: 61 years EKG: SINUS TACHYCARDIA NONSPECIFIC T-WAVE ABNORMALITY ABNORMAL RHYTHM ECG COMPARED TO PRIOR ELEC TROCARDIOGRAM, Prior electrocardiogram has baseline artifact but there appeared to be nonspecific T-w ave changes present now. PREVIOUS TRACING : 07/06/2015 09.28 DOCTOR: Orion Garcia Interpretating Date/Time 05/18/2016 05:36:40
[2016-05-18] MEDS: levETIRAcetam INJ 500 MG in SODIUM CHLORIDE 0.9% INJ 100 ML IV SCH ×4 (08:08→20:57)
[2016-05-18] MEDS: METOPROLOL TARTRATE 25 MG TAB PO SCH ×2 (08:08→20:57)
[2016-05-18] MEDS: SODIUM CHLORIDE 0.9% FLUSH 5 ML FLUSH IVF SCH ×2 (08:09→20:58)
[2016-05-18] MEDS ORDERED: ATROPINE SULFATE 1 MG/10 ML SYRINGE ONE (08:57)
[2016-05-18] MEDS ORDERED: EPINEPHrine HCL (1:10,000) 1 MG/10 ML SYRINGE ONE (08:57)
[2016-05-18] MEDS ORDERED: LIDOCAINE HCL 2% 100 MG/5 ML SYRINGE ONE (08:58)
[2016-05-18] MEDS: PREGABALIN 100 MG CAP PO SCH ×2 (09:00→20:57)
[2016-05-18] MEDS ORDERED: PANTOPRAZOLE SODIUM 40 MG VIAL IVP SCH (09:00)
--- NOTE | 2016-05-18 09:45 | RADRPT ---
EXAM DATE/TIME: 05/18/2016 09:19 [place] COMPARISON: CT BRAIN W/O CONTRAST, May 17, 2016, 19:39. INDICATIONS : Follow up drain placement RADIATION DOSE: 38.91 CTDIvol (mGy) MEDICAL HISTORY : Hypertension. SURGICAL HISTORY : None. ENCOUNTER: Subsequent ACUITY: 2 days PAIN SCALE: Non-responsive LOCATION: cranial TECHNIQUE: Multiple contiguous axial images were obtained of the head. Using automated exposure control and adj ustment of the mA and/or kV according to patient size, radiation dose was kept as low as reasonably a chievable to obtain optimal diagnostic quality images. FINDINGS: There is placement of a left extracerebral defect prior karla hole posterior frontal parietal region e xtending caudad and terminating along the base of the middle cranial fossa. The subdural hematoma has been essentially removed with some minimal air in the extracerebral space. Midline shift mass effect has been reduced from 1.6 cm now 4 mm. Parafalcine hemorrhage is unchanged and the circum-mesencepha lic cistern is well appreciated indicating improvement of herniation. CONCLUSION: Left extracerebral drain in place as described with marked reduction of the extracerebral subdural he matoma and marked improvement of the midline shift as well as decreased transtentorial, uncal herniat ion Prashant Leon MD on May 18, 2016 at 9:40 Board Certified Radiologist. This report was verified electronically.
[2016-05-18] MEDS ORDERED: [UNRECOGNIZED DRUG - OTHER] PO (11:32)
[2016-05-18] MEDS ORDERED: EMPA1TAB3 PO (11:40)
[2016-05-18] MEDS ORDERED: AMLO10TA2 PO (11:40)
[2016-05-18] MEDS ORDERED: PANT40TA3 PO (11:40)
[2016-05-18] MEDS ORDERED: RIBA200C5 PO (11:40)
[2016-05-18] MEDS ORDERED: VALA500T PO (11:40)
[2016-05-18] MEDS ORDERED: PROP10TA6 PO (11:40)
[2016-05-18] MEDS ORDERED: GLIM4TAB PO (11:40)
[2016-05-18] MEDS ORDERED: SERT25TA83 PO (11:40)
[2016-05-18] MEDS ORDERED: [UNRECOGNIZED DRUG - OTHER] PO (11:40)
[2016-05-18] MEDS ORDERED: RITO100 PO (11:40)
[2016-05-18] MEDS ORDERED: GABA300C5 PO (11:40)
[2016-05-18] MEDS ORDERED: [UNRECOGNIZED DRUG - OTHER] PO (11:40)
[2016-05-18 13:21] LABS: BLOOD GAS BASE EXCESS -5.2 mmol/L (-2-2); BLOOD GAS HCO3 19 mmol/L (22-26); BLOOD GAS METHEMOGLOBIN 1.6 % (0-2); BLOOD GAS O2 HGB SATURATION 96 % (90-100); BLOOD GAS OXYGEN CONTENT 16.7 Vol % (12.0-20.0); BLOOD GAS PCO2 31 mmHg (38-42); BLOOD GAS PO2 213 mmHG (61-120); BLOOD GAS TOTAL HGB 12.1 G/DL (12.0-16.0); CRITICAL VALUE NO; DRAW SITE ART LINE; FIO2 40 %; NUMBER OF ARTERIAL PUNCTURES 0; OXYGEN DEVICE VENTILATOR; STAT NO; TEMP CORR TO 98.6; ULNAR PULSE PRESENT; VENT SETTINGS CPAP/PEEP5/PS5
[2016-05-18 13:24] LABS: BLOOD GAS BASE EXCESS -10.1 mmol/L (-2-2); BLOOD GAS CARBOXYHEMOGLOBIN 2.4 % (0-4); BLOOD GAS HCO3 14 mmol/L (22-26); BLOOD GAS METHEMOGLOBIN 0.8 % (0-2); BLOOD GAS O2 HGB SATURATION 97 % (90-100); BLOOD GAS OXYGEN CONTENT 16.5 Vol % (12.0-20.0); BLOOD GAS PCO2 27 mmHg (38-42); BLOOD GAS PO2 214 mmHg (61-120); BLOOD GAS TOTAL HGB 11.8 G/DL (12.0-16.0); CRITICAL VALUE YES; OXYGEN DEVICE VENTILATOR; TEMP CORR TO 98.6; VENT SETTINGS CPAP/PEEP5/PS5
[2016-05-18 13:25] LABS: DRAW SITE ART LINE; FIO2 40 %; NUMBER OF ARTERIAL PUNCTURES 0; STAT YES; ULNAR PULSE PRESENT
[2016-05-18] MEDS: ONDANSETRON HCL 4 MG/2 ML VIAL IV PRN (19:44)
[2016-05-19] VITALS (11 sets, daily range): BP systolic 122–157; BP diastolic 57–95; PULSE 68–88; RESP 12–24; TEMP 97.9–98.7; O2SAT 94–100
[2016-05-19] MEDS: SODIUM BICARBONATE 8.4% INJ 150 MEQ in WATER STERILE FOR INJ 1,000 ML IV SCH (01:40)
[2016-05-19] MEDS: ONDANSETRON HCL 4 MG/2 ML VIAL IV PRN ×3 (04:21→20:17)
[2016-05-19 04:35] LABS: BASOPHIL % 0.2 % (0.0-2.0); EOSINOPHIL % 0.1 % (0.0-4.0); HEMO FLAGS DIFF FINAL; LYMPH % 26.8 % (9.0-44.0); LYMPHOCYTE # 1.7 TH/MM3 (1.0-4.8); MEAN CELL VOLUME 105.6 FL (80.0-100.0); MEAN CORPUSCULAR HEMOGLOBIN 36.7 PG (27.0-34.0); MEAN CORPUSCULAR HGB CONC 34.8 % (32.0-36.0); MONO % 10.3 % (0.0-8.0); NEUT % 62.6 % (16.0-70.0); PLATELET COUNT 144 TH/MM3 (150-450); RED BLOOD COUNT 3.12 MIL/MM3 (4.00-5.30); WHITE BLOOD COUNT 6.4 TH/MM3 (4.0-11.0)
[2016-05-19 05:08] LABS: MAGNESIUM 1.9 MG/DL (1.5-2.5)
[2016-05-19 05:21] LABS: POTASSIUM 2.7 MEQ/L (3.5-5.1)
[2016-05-19] MEDS ORDERED: POTASSIUM CHLOR 20 MEQ PREMIX 100 ML IV PRN (05:30)
[2016-05-19] MEDS ORDERED: MAGNESIUM SULFATE INJ 2 GM in SODIUM CHLORIDE 0.9% INJ 96 ML IV PRN (05:30)
[2016-05-19] MEDS ORDERED: MAGNESIUM OXIDE 400 MG TAB PO PRN (05:30)
[2016-05-19] MEDS ORDERED: POTASSIUM PHOSPHATE MONOBASIC 500 MG TAB PO/TUBE PRN (05:30)
[2016-05-19] MEDS ORDERED: POTASSIUM CHLOR 40 MEQ PREMIX 100 ML IV PRN ×2 (05:30)
[2016-05-19] MEDS ORDERED: POTASSIUM CL 40 MEQ/30 ML LIQ UDC PO/TUBE PRN ×2 (05:30)
[2016-05-19] MEDS ORDERED: MAGNESIUM SULFATE INJ 4 GM in SODIUM CHLORIDE 0.9% INJ 92 ML IV PRN (05:30)
[2016-05-19] MEDS ORDERED: POTASSIUM PHOSPHATE MONOBASIC 500 MG TAB PO PRN (05:30)
[2016-05-19] MEDS ORDERED: SODIUM PHOSPHATE INJ 30 MMOL in SODIUM CHLOR 0.9% 250 ML INJ 240 ML IV PRN (05:30)
[2016-05-19] MEDS ORDERED: POTASSIUM PHOSPHATE INJ 30 MMOL in SODIUM CHLOR 0.9% 250 ML INJ 250 ML IV PRN (05:30)
[2016-05-19] MEDS: POTASSIUM CHLOR 20 MEQ PREMIX 100 ML IV PRN ×2 (06:03→22:14)
[2016-05-19] MEDS: PREGABALIN 100 MG CAP PO SCH ×2 (08:10→20:35)
[2016-05-19] MEDS: levETIRAcetam INJ 500 MG in SODIUM CHLORIDE 0.9% INJ 100 ML IV SCH ×2 (08:10→20:17)
[2016-05-19] MEDS: METOPROLOL TARTRATE 25 MG TAB PO SCH ×2 (08:10→20:34)
[2016-05-19] MEDS: PANTOPRAZOLE SOD 20 MG DELAYED RELEASE TAB PO SCH (08:10)
[2016-05-19] MEDS: SODIUM CHLORIDE 0.9% FLUSH 5 ML FLUSH IVF SCH ×2 (08:23→20:17)
[2016-05-19 08:36] LABS: BLOOD GAS BASE EXCESS -1.6 mmol/L (-2-2); BLOOD GAS CARBOXYHEMOGLOBIN 2.5 % (0-4); BLOOD GAS HCO3 22 mmol/L (22-26); BLOOD GAS METHEMOGLOBIN 0.8 % (0-2); BLOOD GAS O2 HGB SATURATION 96 % (90-100); BLOOD GAS OXYGEN CONTENT 16.3 Vol % (12.0-20.0); BLOOD GAS PCO2 32 mmHg (38-42); BLOOD GAS PO2 120 mmHg (61-120); BLOOD GAS TOTAL HGB 11.9 G/DL (12.0-16.0); CRITICAL VALUE NO; DRAW SITE ART LINE; LITER FLOW 2 L/M; OXYGEN DEVICE NASAL CANNULA; STAT NO; TEMP CORR TO 98.6
--- NOTE | 2016-05-19 11:07 | HHI.CCPN ---
Subjective Remarks/Hospital Course 61-year-old female with Hep C hypertension, diabetes, HIV diagnosed 8 months ago presents She felt depressed for about a week and has not been getting out of bed. She has not been taking her medications. She has not been eating or drinking. Patient fell 2 days ago and struck her head. She was found to have SDH and was emergently taken to OR. 05/19: The patient was successfully extubated yesterday afternoon, and has been weaned to O2 at 3 L nasal cannula. The patient has passed a bedside swallow and has had a diet advance to clear liquid. Objective Vital Signs Date Time Temp Pulse Resp B/P Pulse Ox O2 Delivery O2 Flow Rate FiO2 05/19/16 08:00 98.5 88 24 157/79 100 05/19/16 07:52 Nasal Cannula 3.00 05/18/16 19:46 21 Intake and Output 05/18/16 05/18/16 05/18/16 07:59 15:59 23:59 Intake Total 2080 ml 768 ml 993 ml Output Total 1367 ml 1306 ml 1352 ml Balance 713 ml -538 ml -359 ml Result Diagram: 05/19/16 0418 05/19/16 0418 Other Results Laboratory Tests Test 05/18/16 05/19/16 13:00 08:28 Blood Gas Puncture Site ART LINE ART LINE Blood Gas Patient Temperature 98.6 98.6 Blood Gas HCO3 19 mmol/L 22 mmol/L (22-26) (22-26) Blood Gas Base Excess -5.2 mmol/L -1.6 mmol/L (-2-2) (-2-2) Blood Gas Oxygen Saturation 96 % (90-100) 96 % (90-100) Arterial Blood pH 7.40 7.45 (7.380-7.420) (7.380-7.420) Arterial Blood Partial 31 mmHg (38-42) 32 mmHg (38-42) Pressure CO2 Arterial Blood Partial 213 mmHG 120 mmHg Pressure O2 (61-120) (61-120) Arterial Blood Oxygen Content 16.7 Vol % 16.3 Vol % (12.0-20.0) (12.0-20.0) Arterial Blood 3.0 % (0-4) 2.5 % (0-4) Carboxyhemoglobin Arterial Blood Methemoglobin 1.6 % (0-2) 0.8 % (0-2) Blood Gas Hemoglobin 12.1 G/DL 11.9 G/DL (12.0-16.0) (12.0-16.0) Oxygen Delivery Device VENTILATOR NASAL CANNULA Blood Gas Ventilator Setting CPAP/PEEP5/PS5 Blood Gas Inspired Oxygen 40 % Blood Gas Liter Flow 2 L/M Imaging Last Impressions Head CT 05/18/16 0600 Signed Impressions: Service Date/Time: Wednesday, May 18, 2016 09:19 - CONCLUSION: Left extracerebral drain in place as described with marked reduction of the extracerebral subdural hematoma and marked improvement of the midline shift as well as decreased transtentorial, uncal herniation Prashant Leon MD Chest X-Ray 05/17/161913 Signed Impressions: Service Date/Time: Tuesday, May 17, 2016 20:00 - CONCLUSION: No acute disease. Ashish Roth Jr., MD Last [address] 05/17/161913 Signed Impressions: Service Date/Time: Tuesday, May 17, 2016 19:39 - CONCLUSION: 1. Acute subdural hematoma along the falx with a subacute to chronic subdural hematoma overlying the left cerebral hemisphere with 13 mm of midline shift as well as uncal herniation. Ashish Roth Jr., MD Chest X-Ray 05/17/161913 Signed Impressions: Service Date/Time: Tuesday, May 17, 2016 20:00 - CONCLUSION: No acute disease. Ashish Roth Jr., MD Objective Remarks GENERAL: Well-nourished, well-developed patient, noted flat affect SKIN: Warm and dry. HEAD: Normocephalic. Subdural drain in place serosanguineous drainage. EYES: No scleral icterus. No injection or drainage. NECK: Supple, trachea midline. No JVD or lymphadenopathy. CARDIOVASCULAR: Regular rate and rhythm without murmurs, gallops, or rubs. RESPIRATORY: Breath sounds equal bilaterally. No accessory muscle use. Nasal cannula at 3 L/m GASTROINTESTINAL: Abdomen soft, non-tender, nondistended. MUSCULOSKELETAL: No cyanosis, or edema. BACK: Nontender without obvious deformity. No CVA tenderness. NEURO: GCS 15, motor strength 5/5. Moving extremities 4. Urinary Catheter: Yes Assessment to: Continue Date of Insertion: May 18, 2016 A/P Problem List: (1) Subdural hematoma ICD Code: I62.00 Status: Acute (2) Midline shift of brain ICD Code: G93.9 Status: Acute (3) Altered mental status ICD Code: R41.82 Status: Acute Assessment and Plan Respiratory failure-resolved - Maintain O2 sat greater than 92%, currently on O2 at 3 L nasal cannula continue to wean - Begin incentive spirometry every hour while awake - Maintain head of bed 30 ABG- 7.45/32/120/22/-1.6 SDH - S/P [place] evacuation - YUN drain in place-serosanguineous drainage - F/U NSGY Dr. Clay recommendation Depression -Psychiatry consult -Resume sertraline Hep C - monitor LFTs - supportive care Hypertension - resume Norvasc 10 mg daily -MAP 88-103 mmHg - Patient currently on Lopressor -Maintain SBP goal < 150mmHg Diabetes mellitus Nausea -Monitor blood glucose per ICU protocol -Begin 1800-calorie ADA diet -Continue Zofran every 6 hours PRN nausea -Resume PO Protonix -Bowel regimen added - ISS Metabolic acidosis-resolved -Discontinue sodium bicarbonate infusion HIV - resume home meds when off vent DVT/GI prophylaxis - TEDs/SCDs/Pepcid Critical Care: The total critical care time was 33 minutes. Time to perform other separately billable procedures was not included in the critical care time. Discussed with RN ONCOLOGY RESEARCH at bedside. Physician Nanda Bobo Problem Qualifiers (1) Altered mental status: Qualified Code: R41.0 - Disorientation Nanda Bobo MD May 19, 2016 11:06
[2016-05-19] MEDS: ACETAMINOPHEN 325 MG TAB PO PRN ×2 (11:50→23:42)
[2016-05-19] MEDS ORDERED: DEXTROSE 50% IN WATER 50 ML VIAL(D50) IV PUSH PRN (12:00)
[2016-05-19] MEDS ORDERED: GLUCAGON 1 MG/ML VIAL OTHER PRN (12:00)
--- NOTE | 2016-05-19 14:26 | HHI.NSPN ---
Subjective History 61 year old was brought in by a friend who found her disoriented and unsteady at home. She was found to have a large left sided subacute SDH and a fresh falcine acute SDH. She underwent a left frontal karla hole for drainage of the sub acute collection. She is now alert but has a headache 8/10 on MSO4. She feels very nauseous. She has a hx of previous closed head injury and hepatitis C. Vitals . Vital Signs Date Time Temp Pulse Resp B/P Pulse Ox O2 Delivery O2 Flow Rate FiO2 05/19/16 12:00 98.2 81 16 140/95 96 05/19/16 08:00 98.5 88 24 157/79 100 05/19/16 08:00 88 05/19/16 07:52 100 Nasal Cannula 3.00 05/19/16 07:00 100 Mechanical Ventilator 2.00 05/19/16 06:00 75 05/19/16 04:00 97.9 81 14 152/57 98 05/19/16 04:00 81 05/19/16 02:00 71 05/19/16 00:00 68 05/19/16 00:00 98.7 68 16 122/64 95 05/18/16 22:00 80 05/18/16 20:00 98.8 98 20 141/84 98 05/18/16 20:00 98 05/18/16 19:46 96 21 05/18/16 19:00 100 Mechanical Ventilator 3.00 05/18/16 18:00 81 05/18/16 16:00 98.8 84 20 139/60 98 05/18/16 16:00 84 05/18/16 15:20 98 Nasal Cannula 3 05/18/16 15:20 98 Nasal Cannula 3.00 05/18/16 05/18/16 05/19/16 15:00 23:00 07:00 Intake Total 768 ml 993 ml 817 ml Output Total 1306 ml 1352 ml 1060 ml Balance -538 ml -359 ml -243 ml Physical Exam Head Head: Incision (dressed, has old drainage on the kerlix) Eyes Eyes: Pupils Equal Neuro Mental Status: Awake, Alert, Oriented x 3 Pupils: Reactive Bilaterally Face: Symmetric Anirudh Coma Scale Best Eye Openin - Spontaneous Best Verbal: 5 - Oriented Best Motor: 6 - Obeys Cardiac Cardiac: Regular Rate & Rhythm Respiratory Respiratory: CTA Gastrointestinal Gastrointestinal: Soft Bowel Sounds: Present Genitourinary Genitourinary: Potts Catheter In Place Musculoskeletal Musculoskeletal: Moves all extrem with 5/5 strength Extremities Upper Extremities Deltoid Bicep Tricep HI W. Ext Right Left Lower Extremeties Ilio Quad Plantar Dorsi EHL Right Left Extremities Edema: No Edema Objective Labs Laboratory Tests 05/19/16 04:18 Laboratory Tests Test 05/19/16 04:18 Sodium Level 139 MEQ/L Potassium Level 2.7 MEQ/L Chloride Level 99 MEQ/L Carbon Dioxide Level 25.0 MEQ/L Anion Gap 15 MEQ/L Blood Urea Nitrogen 9 MG/DL Creatinine 0.42 MG/DL Estimat Glomerular Filtration 153 ML/MIN Rate Random Glucose 122 MG/DL Calcium Level 8.6 MG/DL Phosphorus Level 1.9 MG/DL Magnesium Level 1.9 MG/DL Imaging Remarks Last Impressions Head CT 05/18/16 0600 Signed Impressions: Service Date/Time: Wednesday, May 18, 2016 09:19 - CONCLUSION: Left extracerebral drain in place as described with marked reduction of the extracerebral subdural hematoma and marked improvement of the midline shift as well as decreased transtentorial, uncal herniation Prashant Leon MD Chest X-Ray 05/17/16 1914 Signed Impressions: Service Date/Time: Tuesday, May 17, 2016 20:00 - CONCLUSION: No acute disease. Ashish Roth Jr., MD Assessment & Plan Diagnosis: (1) Subdural hematoma Plan: Improved alertness, subgaleal drain is still draining xanthochromic CSF, she has no focal weakness or numbness. Agree with the psychiatry consult. DVT and seizure prophylaxis is continued. PO intake is encouraged. Plan removal of the drain tomorrow. Gerber Clay May 19, 2016 14:26
--- NOTE | 2016-05-19 15:37 | PD.CONS ---
Provisional Diagnosis Admission Date May 17, 2016 at 20:46 [place] I. Unspecified psychotic, major depressive disorder, alcohol use disorder [place] II. Deferred [place] III. HIV, hepatitis C, subdural hematoma [place] IV. History of alcoholism [place] V. 55 History of Present Illness Service Psychiatry Consult Requested By Primary Care Physician Harjit Lebron MD HPI The patient is a 61-year-old woman , domiciled alone, recently retired, with psychiatric history of depression and anxiety, about 5 previous psychiatric hospitalizations, no suicide attempts, she is on Zoloft 25 mg and Xanax 1 mg twice a day prescribed by PCP, she has medical history of hepatitis C and HIV, who was brought in by a friend who found her disoriented and unsteady at home. She was found to have a large left sided subacute SDH and a fresh falcine acute SDH. She underwent a left frontal karla hole for drainage of the sub acute collection. Patient was consulted to psychiatry due to depression. On psychiatric evaluation the patient reports that she has been feeling sad in the last days, due to her current medical situation, to the fact that she cannot eat, to the fact that she is bedbound at this moment, and depression consistent in frequent sadness, low level of energy, decreased self- esteem and self view, poor sleep at night, but she denies hopelessness, she denies helplessness, she denies suicidal and homicidal ideation. 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 Patient reports that in the last 2 days she has been experiencing visual hallucinations consisting in seeing people from her family that many years ago. She has been having these visual hallucinations about 3-4 times per day. She seems to be insightful about the reality, she denies distress or anxiety related with his psychosis, "but I note that this is not normal". She reports alcohol abuse, about every day 1 pint to 1 bottle of vodka, she denies history of alcohol withdrawal, she denies detox and rehabilitation program. She denies the use of illicit drugs, such as marijuana, cocaine, heroine, PCP and others. Past Family Social History Coded Allergies: Iohexol (OMNIPAQUE) (Verified Allergy, Severe, Hives, 07/06/15) date of allergy 06/20/11: facial hives and itching Codeine (Verified Adverse Reaction, Severe, NAUSEA, 07/06/15) Reported Medications Valacyclovir 500 Mg Nxy400 Mg PO DAILY #30 TAB Ref 0 05/18/16 Amlodipine 10 Mg Tab10 Mg PO DAILY #30 TAB Ref 0 05/18/16 Propranolol 10 Mg Tab10 Mg PO Q12HR #60 TAB Ref 0 05/18/16 Sertraline 25 Mg Tab25 Mg PO DAILY #30 TAB Ref 0 05/18/16 Pantoprazole 40 Mg Tab40 Mg PO DAILY #30 TAB Ref 0 05/18/16 Glimepiride 4 Mg Tab4 Mg PO DAILY #30 TAB Ref 0 Take with breakfast or first main meal 05/18/16 Gabapentin 300 Mg Ode207 Mg PO HS #30 CAP Ref 0 05/18/16 Empagliflozin (Jardiance)25 Mg Tab25 Mg PO DAILY #30 TAB Ref 0 05/18/16 Ribavirin 200 Mg Hso307 Mg PO BID 05/18/16 [dasabuvir] No Conflict [id number] Mg PO 05/18/16 Ritonavir (Norvir)100 Mg Cap50 Mg PO #180 CAP Ref 0 05/18/16 [paritaprevir] No Conflict Check75 Mg PO 05/18/16 [ombitasvir] No Conflict Check12.5 Mg PO 05/18/16 [Other] No Conflict Check Weekly 07/06/15 Cholecalciferol (Vitamin D)5,000 Unit Tab2,000 Unit PO DAILY 07/06/15 1-Methyl 2-Pyrrolidone (Bulk) (1-Methyl 2-Pyrrolidinone)10 Mg Tab1 Tab PO DAILY 07/06/15 Metoprolol Tartrate 25 mg 25 Mg Tab25 Mg PO BID 11/11/14 Omeprazole (Hm Omeprazole)20 Mg Tab20 Mg PO DAILY 11/11/14 Insulin Detemir (Levemir Insulin)100 Units/Ml Inj10 Units SQ BID #10 ML 11/11/14 [id number] M2 100 Mg Grx935 Mg PO BID 11/11/14 Alprazolam (Xanax)0.5 Mg Tab0.5 Mg PO DAILYPRN 01/06/10 Current Medications Medications (Trade) Dose Ordered Sig/Courtney Route Start Time Stop Time Status Last Admin (NS Flush) 2 ml UNSCH PRN IVF 05/17/16 20:45 (NS Flush) 2 ml BID IVF 05/17/16 21:00 05/18/16 20:58 (Trandate Inj) 20 mg Q4H PRN IV 05/17/16 20:45 (Tylenol) 650 mg Q4H PRN PO 05/17/16 20:45 05/19/16 11:50 Morphine Sulfate 5 mg 5 mg Q4H PRN IV PUSH 05/17/16 20:45 05/18/16 23:42 (Keppra Inj/NS Inj) 105 ml @ 400 mls/hr Q12H IV 05/17/16 21:00 05/19/16 08:10 (Zofran Inj) 4 mg Q6H PRN IV 05/17/16 20:45 05/19/16 11:50 (Lopressor) 25 mg BID PO 05/18/16 09:00 05/19/16 08:10 (Lyrica) 100 mg BID PO 05/18/16 09:00 05/19/16 08:10 Pantoprazole Sodium 20 mg 20 mg DAILY PO 05/18/16 00:30 05/19/16 08:10 Potassium Chloride 100 ml @ 50 mls/hr Q2H PRN IV 05/19/16 05:30 (KCl 20 Meq Premix Inj) 100 ml @ 50 mls/hr Q2H PRN IV 05/19/16 05:30 05/19/16 06:03 Potassium Chloride 40 meq 40 meq UNSCH PRN PO/TUBE 05/19/16 05:30 Potassium Chloride 100 ml @ 25 mls/hr UNSCH PRN IV 05/19/16 05:30 Potassium Chloride 100 ml @ 50 mls/hr Q2H PRN IV 05/19/16 05:30 (Magnesium Sulfate Inj/NS Inj) 100 ml @ 50 mls/hr UNSCH PRN IV 05/19/16 05:30 Magnesium Oxide 800 mg 800 mg UNSCH PRN PO 05/19/16 05:30 (Magnesium Sulfate Inj/NS Inj) 100 ml @ 50 mls/hr UNSCH PRN IV 05/19/16 05:30 Potassium Phosphate 2000 mg 2,000 mg Q4H PRN PO 05/19/16 05:30 (Sodium Phosphate Inj/NS 250 ml Inj) 250 ml @ 42 mls/hr UNSCH PRN IV 05/19/16 05:30 (KCl 40 Meq/30 ml Liq) 40 meq UNSCH PRN PO/TUBE 05/19/16 05:30 Potassium Phosphate 2000 mg 2,000 mg UNSCH PRN PO/TUBE 05/19/16 05:30 (Potassium Phosphate Inj/NS 250 ml Inj) 260 ml @ 42 mls/hr UNSCH PRN IV 05/19/16 05:30 05/19/16 08:11 (Katarina-Colace) 1 tab BID PO 05/19/16 21:00 (Zoloft) 25 mg DAILY PO 05/20/16 09:00 (D50w (Vial) Inj) 25 ml UNSCH PRN IV PUSH 05/19/16 12:00 (Glucagon Inj) 1 mg UNSCH PRN OTHER 05/19/16 12:00 (Roxicodone) 5 mg Q8H PO 05/19/16 15:00 Family History She denies Social History Patient was born and raised in [place], she was raised by her parents, she had a happy childhood, she has been 3 times, she is currently , she lives alone in [place], 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 Physical Exam Vital Signs Vital Signs Date Time Temp Pulse Resp B/P Pulse Ox O2 Delivery O2 Flow Rate FiO2 05/19/16 12:00 98.2 81 16 140/95 96 05/19/16 07:52 Nasal Cannula 3.00 05/18/16 19:46 21 I/O 05/18/16 05/18/16 05/19/16 08:00 16:00 00:00 Intake Total 2080 ml 768 ml 993 ml Output Total 1367 ml 1306 ml 1352 ml Balance 713 ml -538 ml -359 ml Mental Status Examination Appearance woman, younger than her stated age, visible bandaging in her head, calm, cooperative and pleasant Speech: Unremarkable Orientation: x3 Memory: Unremarkable Thought Process: Logical Thought Content: Unremarkable Hallucination Type: Auditory, Visual Attention and Concentration: Good Suicidal Ideation: No Previous Suicide Attempts: No Homicidal Ideation: No Previous Homicide Attempts: No Insight: Good Judgement: WNL Affect: Sad Mood: Sad Motor Activity: Normal gait Assessment & Plan Problem List: (1) Unspecified psychosis Assessment & Plan: The patient is a 61-year-old woman , domiciled alone, recently retired, with psychiatric history of depression and anxiety, about 5 previous psychiatric hospitalizations, no suicide attempts, she is on Zoloft 25 mg and Xanax 1 mg twice a day prescribed by PCP, she has medical history of hepatitis C and HIV, who was brought in by a friend who found her disoriented and unsteady at home. She was found to have a large left sided subacute SDH and a fresh falcine acute SDH. She underwent a left frontal karla hole for drainage of the sub acute collection. Patient was consulted to psychiatry due to depression. On psychiatric evaluation the patient reports mild to moderate depressive symptoms, mostly secondary to current medical situation, consisting in frequent sadness, low energy, poor sleep at night, poor motivation, but she denies hopelessness, she denies helplessness, she denies suicidal or homicidal ideation. Patient also reports one or 2 days of new onset non-anxiety provoking, non- distressful, insightful visual hallucinations, especially at night, of people calling inside her room, usually people from her family that are and talking among them. She says that she is having these episodes of psychosis about 3-4 times per day. These visual hallucinations are more probably secondary to SDH, with alcohol withdrawal and alcohol hallucinosis have to be considered, however patient denies and there is no evidence of symptomatology of alcohol withdrawal at this moment. The patient does not meet criteria for psychiatric hospitalization. We will increase the Zoloft to 50 mg daily for depressive symptoms, we'll start Seroquel 50 mg at bedtime for psychosis and to help with sleep. Watch alcohol withdrawal closely and consider [facility] protocol. Extensive psychoeducation, motivation and supportive psychotherapy provided. We'll continue follow-up. ICD Code: F29 Assessment & Plan Estimated LOS: Francisco Javier Driver MD May 19, 2016 15:37
[2016-05-19] MEDS: INSULIN ASPART SUPPLEMENTAL SCALE SQ SCH ×2 (16:00→21:00)
[2016-05-19] MEDS: MORPHINE SULFATE 8 MG/ML INJ IV PUSH PRN ×2 (17:54→23:42)
[2016-05-19] MEDS: QUEtiapine FUMARATE 25 MG TAB PO SCH (20:34)
[2016-05-19] MEDS: DOCUSATE SODIUM 50 MG/SENNA 8.6 MG TAB PO SCH (20:34)
[2016-05-20] VITALS (12 sets, daily range): BP systolic 133–157; BP diastolic 62–87; PULSE 66–88; RESP 10–20; TEMP 98.1–98.8; O2SAT 94–99
[2016-05-20] MEDS: POTASSIUM CHLOR 20 MEQ PREMIX 100 ML IV PRN (02:13)
[2016-05-20] MEDS: ONDANSETRON HCL 4 MG/2 ML VIAL IV PRN (06:01)
[2016-05-20] MEDS: INSULIN ASPART SUPPLEMENTAL SCALE SQ SCH ×4 (06:53→20:42)
[2016-05-20 07:04] LABS: HEMATOCRIT 34.7 % (35.0-46.0); MEAN CORPUSCULAR HEMOGLOBIN 36.7 PG (27.0-34.0); MEAN CORPUSCULAR HGB CONC 34.6 % (32.0-36.0); PLATELET COUNT 140 TH/MM3 (150-450); RED BLOOD COUNT 3.28 MIL/MM3 (4.00-5.30); RED CELL DISTRIBUTION WIDTH 13.6 % (11.6-17.2); REVIEW FLAG FINAL; WHITE BLOOD COUNT 5.4 TH/MM3 (4.0-11.0)
[2016-05-20 07:21] LABS: BICARBONATE 19.1 MEQ/L (21.0-32.0); INDIRECT BILIRUBIN 0.4 MG/DL (0.0-0.8); MAGNESIUM 1.9 MG/DL (1.5-2.5); POTASSIUM 3.7 MEQ/L (3.5-5.1); TOTAL BILIRUBIN ADULT 0.7 MG/DL (0.2-1.0)
[2016-05-20] MEDS: MORPHINE SULFATE 8 MG/ML INJ IV PUSH PRN (07:51)
[2016-05-20] MEDS: PREGABALIN 100 MG CAP PO SCH ×2 (07:51→20:30)
[2016-05-20] MEDS: SERTRALINE HCL 50 MG TAB PO SCH (07:51)
[2016-05-20] MEDS: METOPROLOL TARTRATE 25 MG TAB PO SCH ×2 (07:51→20:30)
[2016-05-20] MEDS: DOCUSATE SODIUM 50 MG/SENNA 8.6 MG TAB PO SCH ×2 (07:51→20:30)
[2016-05-20] MEDS: PANTOPRAZOLE SOD 20 MG DELAYED RELEASE TAB PO SCH (07:51)
[2016-05-20] MEDS: SODIUM CHLORIDE 0.9% FLUSH 5 ML FLUSH IVF SCH ×2 (07:52→20:30)
[2016-05-20] MEDS: levETIRAcetam INJ 500 MG in SODIUM CHLORIDE 0.9% INJ 100 ML IV SCH (07:52)
[2016-05-20] MEDS ORDERED: SERTRALINE HCL 50 MG TAB PO SCH (09:00)
--- NOTE | 2016-05-20 11:31 | HHI.NSPN ---
Subjective History 61 year old was brought in by a friend who found her disoriented and unsteady at home. She was found to have a large left sided subacute SDH and a fresh falcine acute SDH. She underwent a left frontal karla hole for drainage of the sub acute collection. She is now alert but has a headache 8/10 on MSO4. She feels very nauseous. She has a hx of previous closed head injury and hepatitis C. 05/20/16 Alert and awake, headache persists but her orientation and mood are improving. She is eating well and ready to get OOB. Vitals . Vital Signs Date Time Temp Pulse Resp B/P Pulse Ox O2 Delivery O2 Flow Rate FiO2 05/20/16 08:44 98 05/20/16 08:00 98.1 88 20 142/78 96 05/20/16 07:00 Room Air 05/20/16 06:00 79 05/20/16 04:00 98.4 67 10 141/68 94 05/20/16 04:00 66 05/20/16 02:00 74 05/20/16 00:00 98.7 82 19 140/62 94 05/20/16 00:00 82 05/19/16 22:00 76 05/19/16 20:00 79 05/19/16 20:00 98.0 84 12 154/60 95 05/19/16 19:44 94 Nasal Cannula 2.00 05/19/16 19:00 96 Room Air 05/19/16 16:00 98.6 83 18 126/62 94 05/19/16 12:00 98.2 81 16 140/95 96 05/19/16 05/19/16 05/20/16 15:00 23:00 07:00 Intake Total 992 ml 618 ml 1116 ml Output Total 1350 ml 1271 ml 1296 ml Balance -358 ml -653 ml -180 ml Physical Exam Head Head Remarks Wound dry with dry blood Eyes Eyes: Pupils Equal Neuro Mental Status: Awake, Alert Pupils: Reactive Bilaterally Anirudh Coma Scale Best Eye Openin - Spontaneous Best Verbal: 5 - Oriented Best Motor: 6 - Obeys Cardiac Cardiac: Regular Rate & Rhythm Respiratory Respiratory: CTA Gastrointestinal Gastrointestinal: Soft Bowel Sounds: Present Genitourinary Genitourinary: Potts Catheter In Place (removing today) Musculoskeletal Extremities Upper Extremities Deltoid Bicep Tricep HI W. Ext Right Left Lower Extremeties Ilio Quad Plantar Dorsi EHL Right Left Extremities Edema: No Edema Objective Labs Laboratory Tests 05/19/16 19:54 05/20/16 06:27 Laboratory Tests Test 05/19/16 05/20/16 19:54 06:27 Potassium Level 2.8 MEQ/L 3.7 MEQ/L Phosphorus Level 2.4 MG/DL 2.0 MG/DL Sodium Level 135 MEQ/L Chloride Level 102 MEQ/L Carbon Dioxide Level 19.1 MEQ/L Anion Gap 14 MEQ/L Blood Urea Nitrogen 7 MG/DL Creatinine 0.45 MG/DL Estimat Glomerular Filtration 141 ML/MIN Rate Random Glucose 129 MG/DL Calcium Level 8.8 MG/DL Magnesium Level 1.9 MG/DL Total Bilirubin 0.7 MG/DL Direct Bilirubin 0.3 MG/DL Indirect Bilirubin 0.4 MG/DL Aspartate Amino Transf 60 U/L (AST/SGOT) Alanine Aminotransferase 64 U/L (ALT/SGPT) Alkaline Phosphatase 86 U/L Total Protein 7.7 GM/DL Albumin 2.9 GM/DL Assessment & Plan Diagnosis: (1) Subdural hematoma Plan: Improved alertness, subgaleal drain is still draining xanthochromic CSF, she has no focal weakness or numbness. Agree with the psychiatry consult. DVT and seizure prophylaxis is continued. PO intake is encouraged. 05/20/16 She is improving. Psychiatry consult appreciated. Drain and a line are removed. Tx to the floor. Gerber Clay May 20, 2016 11:31
--- NOTE | 2016-05-20 14:03 | HHI.CCPN ---
Subjective Remarks/Hospital Course 61-year-old female with Hep C hypertension, diabetes, HIV diagnosed 8 months ago presents She felt depressed for about a week and has not been getting out of bed. She has not been taking her medications. She has not been eating or drinking. Patient fell 2 days ago and struck her head. She was found to have SDH and was emergently taken to OR. 05/19: The patient was successfully extubated yesterday afternoon, and has been weaned to O2 at 3 L nasal cannula. The patient has passed a bedside swallow and has had a diet advance to clear liquid. 05/20: Drain discontinued, the patient is tolerating diet. Psychiatry evaluation performed, medications adjusted. Objective Vital Signs Date Time Temp Pulse Resp B/P Pulse Ox O2 Delivery O2 Flow Rate FiO2 05/20/16 12:00 98.4 67 16 133/82 96 05/20/16 07:00 Room Air 05/19/16 19:44 2.00 05/18/16 19:46 21 Intake and Output 05/19/16 05/19/16 05/19/16 07:59 15:59 23:59 Intake Total 817 ml 992 ml 618 ml Output Total 1060 ml 1350 ml 1271 ml Balance -243 ml -358 ml -653 ml Result Diagram: 05/20/1662605/20/16626 Imaging Last Impressions Head CT 05/18/16 06 Signed Impressions: Service Date/Time: Wednesday, May 18, 2016 09:19 - CONCLUSION: Left extracerebral drain in place as described with marked reduction of the extracerebral subdural hematoma and marked improvement of the midline shift as well as decreased transtentorial, uncal herniation Prashant Leon MD Chest X-Ray 05/17/161913 Signed Impressions: Service Date/Time: Tuesday, May 17, 2016 20:00 - CONCLUSION: No acute disease. Ashish Roth Jr., MD Last [address] 05/17/161913 Signed Impressions: Service Date/Time: Tuesday, May 17, 2016 19:39 - CONCLUSION: 1. Acute subdural hematoma along the falx with a subacute to chronic subdural hematoma overlying the left cerebral hemisphere with 13 mm of midline shift as well as uncal herniation. Ashish Roth Jr., MD Chest X-Ray 05/17/161913 Signed Impressions: Service Date/Time: Tuesday, May 17, 2016 20:00 - CONCLUSION: No acute disease. Ashish Roth Jr., MD Objective Remarks GENERAL: Well-nourished, well-developed patient, pleasant and conversant today. SKIN: Warm and dry. HEAD: Normocephalic. Dressing clean dry and intact EYES: No scleral icterus. No injection or drainage. NECK: Supple, trachea midline. No JVD or lymphadenopathy. CARDIOVASCULAR: Regular rate and rhythm without murmurs, gallops, or rubs. RESPIRATORY: Breath sounds equal bilaterally. No accessory muscle use. GASTROINTESTINAL: Abdomen soft, non-tender, nondistended. MUSCULOSKELETAL: No cyanosis, or edema. BACK: Nontender without obvious deformity. No CVA tenderness. NEURO: GCS 15, motor strength 5/5. Moving extremities 4. Procedures Subdural drain removed per neurosurgeon Urinary Catheter: Yes Assessment to: Remove Date of Insertion: May 18, 2016 Date of Removal: May 20, 2016 Vascular Central Line Catheter: No A/P Problem List: (1) Subdural hematoma ICD Code: I62.00 Status: Acute (2) Midline shift of brain ICD Code: G93.9 Status: Acute (3) Altered mental status ICD Code: R41.82 Status: Acute Assessment and Plan Respiratory failure-resolved - Maintain O2 sat greater than 92%, patient on room air - Begin incentive spirometry every hour while awake - Maintain head of bed 30 SDH - S/P [place] evacuation - YUN drain removed - F/U NSGY Dr. Clay recommendation Depression -Psychiatry following Dr. Alaniz, medications adjusted -History of alcohol usage-monitor for signs of alcohol withdrawal Hep C - monitor LFTs - supportive care Hypertension - resume Norvasc 10 mg daily - Patient currently on Lopressor -Maintain SBP goal < 150mmHg Diabetes mellitus Nausea -Monitor blood glucose per ICU protocol - 1800-calorie ADA diet -Continue Zofran every 6 hours PRN nausea -Resume PO Protonix -Bowel regimen Senna-Colace - ISS Metabolic acidosis-resolved -Discontinue sodium bicarbonate infusion 05/19 HIV - resume home meds when off vent DVT/GI prophylaxis - TEDs/SCDs/Pepcid Level 2 Dispo: Transfer to neurology medical floor 5N per , transfer to [facility] hospitalist. Physician Nanda Bobo Problem Qualifiers (1) Altered mental status: Qualified Code: R41.0 - Disorientation Nanda Bobo MD May 20, 2016 14:03
[2016-05-20] MEDS: QUEtiapine FUMARATE 25 MG TAB PO SCH (20:29)
[2016-05-20] MEDS: levETIRAcetam 500 MG TAB PO SCH (20:30)
[2016-05-21] VITALS (7 sets, daily range): BP systolic 137–146; BP diastolic 70–84; PULSE 65–97; RESP 16–18; TEMP 97.5–98.6; O2SAT 96–100
[2016-05-21] MEDS: INSULIN ASPART SUPPLEMENTAL SCALE SQ SCH ×4 (06:34→20:14)
[2016-05-21 07:40] LABS: HEMATOCRIT 36.4 % (35.0-46.0); MEAN CELL VOLUME 106.1 FL (80.0-100.0); MEAN CORPUSCULAR HEMOGLOBIN 36.9 PG (27.0-34.0); MEAN CORPUSCULAR HGB CONC 34.8 % (32.0-36.0); PLATELET COUNT 151 TH/MM3 (150-450); RED BLOOD COUNT 3.43 MIL/MM3 (4.00-5.30); RED CELL DISTRIBUTION WIDTH 13.5 % (11.6-17.2); REVIEW FLAG FINAL; WHITE BLOOD COUNT 5.4 TH/MM3 (4.0-11.0)
[2016-05-21 07:54] LABS: BICARBONATE 22.8 MEQ/L (21.0-32.0); MAGNESIUM 1.8 MG/DL (1.5-2.5)
[2016-05-21 08:00] LABS: POTASSIUM 2.9 MEQ/L (3.5-5.1)
[2016-05-21] MEDS: DOCUSATE SODIUM 50 MG/SENNA 8.6 MG TAB PO SCH ×2 (08:18→19:45)
[2016-05-21] MEDS: PANTOPRAZOLE SOD 20 MG DELAYED RELEASE TAB PO SCH (08:19)
[2016-05-21] MEDS: PREGABALIN 100 MG CAP PO SCH ×2 (08:19→20:14)
[2016-05-21] MEDS: METOPROLOL TARTRATE 25 MG TAB PO SCH ×2 (08:19→20:14)
[2016-05-21] MEDS: levETIRAcetam 500 MG TAB PO SCH ×2 (08:19→20:14)
[2016-05-21] MEDS: SODIUM CHLORIDE 0.9% FLUSH 5 ML FLUSH IVF SCH ×2 (08:20→20:15)
[2016-05-21] MEDS: SERTRALINE HCL 50 MG TAB PO SCH (08:20)
[2016-05-21] MEDS ORDERED: POTASSIUM CHLORIDE 20 MEQ CONTROLLED RELEASE TAB PO ONE ×2 (09:15→13:00)
--- NOTE | 2016-05-21 10:21 | HHI.NSPN ---
History Chief Complaint: pain Interval History 61 yr old with hep C and coagulopathy fell and is day 4 after drainage of SDH. She has a headache but is alert, eating, oriented x3 and able to walk. Review of Systems General: Negative for: fever, chills, insomnia Respiratory: Negative for: shortness of breath, cough, sputum Cardiovascular: Negative for: chest pain, palpitations, orthopnea Gastrointestinal: Negative for: nausea, vomitting, diarrhea, constipation Genitourinary: Negative for: urinary burning, urinary frequency, urinary urgency Exam Results Vital Signs Date Time Temp Pulse Resp B/P Pulse Ox O2 Delivery O2 Flow Rate FiO2 05/21/16 08:00 98.6 65 18 145/73 96 05/20/16 23:56 Room Air 05/20/16 21:17 21 05/19/16 19:44 2.00 Intake and Output 05/20/16 05/20/16 05/21/16 08:00 16:00 00:00 Intake Total 1116 ml 523 ml 250 ml Output Total 1296 ml 715 ml Balance -180 ml -192 ml 250 ml Physical Examination Alert, speech fluent, incision dry Lungs clear, RRR, No pronator drift, moves all extremities well, Lab, Micro, Other Results Laboratory Tests Test 05/21/16 06:21 White Blood Count 5.4 TH/MM3 Red Blood Count 3.43 MIL/MM3 Hemoglobin 12.7 GM/DL Hematocrit 36.4 % Mean Corpuscular Volume 106.1 FL Mean Corpuscular Hemoglobin 36.9 PG Mean Corpuscular Hemoglobin 34.8 % Concent Red Cell Distribution Width 13.5 % Platelet Count 151 TH/MM3 Mean Platelet Volume 9.3 FL Sodium Level 133 MEQ/L Potassium Level 2.9 MEQ/L Chloride Level 96 MEQ/L Carbon Dioxide Level 22.8 MEQ/L Anion Gap 14 MEQ/L Blood Urea Nitrogen 8 MG/DL Creatinine 0.44 MG/DL Estimat Glomerular Filtration 145 ML/MIN Rate Random Glucose 155 MG/DL Calcium Level 8.8 MG/DL Phosphorus Level 2.8 MG/DL Magnesium Level 1.8 MG/DL Medical Decision Making Impression and Plan 1- SDH Follow up CT is pending, she likely will need radiologic follow up 2- Gait instability OT/PT following. 3- Hyponatremia secondary to SDH and may be worsened by SSRI. Will follow daily 4- Discharge planning Plan d/c home later this week. Gerber Clay May 21, 2016 10:21
--- NOTE | 2016-05-21 14:14 | HHI.PR ---
Subjective Remarks eager for d/c home Objective Vitals mildly anxious heart reg lung cta abd s/nt ext no edema Vital Signs Date Time Temp Pulse Resp B/P Pulse Ox O2 Delivery O2 Flow Rate FiO2 05/21/16 12:00 97.7 67 17 137/81 97 05/21/16 10:45 98 21 05/21/16 08:00 98.6 65 18 145/73 96 05/21/16 07:36 18 05/21/16 04:48 97.5 97 16 146/72 97 05/20/16 23:56 Room Air 05/20/16 22:30 98.6 82 20 142/80 99 05/20/16 22:00 76 05/20/16 21:17 98 21 05/20/16 20:00 78 05/20/16 20:00 98.7 78 18 157/87 98 Arterial Line 05/20/16 19:00 98 Room Air 05/20/16 16:00 98.8 86 20 151/81 99 05/20/16 05/20/16 05/21/16 15:00 23:00 07:00 Intake Total 523 ml 250 ml Output Total 715 ml Balance -192 ml 250 ml Intake Oral 300 ml 250 ml IV Total 223 ml 0 ml Output Urine Total 700 ml Drainage Total 15 ml # Voids 1 2 2 # Bowel Movements 0 0 Result Diagram: 05/21/1662005/21/16620 Date of Insertion: May 18, 2016 Date of Removal: May 20, 2016 A/P Problem List: (1) Subdural hematoma Status: Acute Plan: Pt with hiv and hep c. became depressed and stopped eating and taking her meds. Fell and presented with sdh now s/p evacuation transferred to med/surg. stable nsg following and d/c once cleared by nsg pt/ambulate resume dm meds slowly will plan for pt to resume her antiviral meds at d/c cont htn meds. titrate as needed. replace kcl and recheck. dvt prophylaxis. psychiatry following and adjusting meds for depression/psychosis. (2) Hypokalemia Status: Acute Plan: see above (3) Hepatitis C Status: Chronic (4) HIV (human immunodeficiency virus infection) Status: Chronic (5) HTN (hypertension) Status: Chronic (6) Anxiety Status: Chronic (7) DM (diabetes mellitus) Status: Chronic Alfonso,Bakari L MD May 21, 2016 14:14
[2016-05-21] MEDS: POTASSIUM CHLORIDE 20 MEQ CONTROLLED RELEASE TAB PO SCH (20:14)
[2016-05-21] MEDS: QUEtiapine FUMARATE 25 MG TAB PO SCH (20:14)
[2016-05-22] VITALS (8 sets, daily range): BP systolic 103–185; BP diastolic 67–93; PULSE 69–96; RESP 16–20; TEMP 97.6–99.3; O2SAT 96–99
[2016-05-22] MEDS: INSULIN ASPART SUPPLEMENTAL SCALE SQ SCH ×4 (05:36→20:44)
[2016-05-22 06:17] LABS: POTASSIUM 3.7 MEQ/L (3.5-5.1)
[2016-05-22 06:18] LABS: INTERNATIONAL NORMALIZED RATIO 1.2 RATIO; PROTHROMBIN TIME - PATIENT 13.5 SEC (9.8-11.6)
[2016-05-22 06:38] LABS: AUTOMATED NEUTROPHIL # 2.3 TH/MM3 (1.8-7.7); BASOPHIL % 0.7 % (0.0-2.0); EOSINOPHIL # 0.1 TH/MM3 (0-0.4); EOSINOPHIL % 2.1 % (0.0-4.0); HEMATOCRIT 38.2 % (35.0-46.0); HEMO FLAGS DIFF FINAL; LYMPH % 44.9 % (9.0-44.0); LYMPHOCYTE # 2.4 TH/MM3 (1.0-4.8); MEAN CELL VOLUME 105.2 FL (80.0-100.0); MEAN CORPUSCULAR HEMOGLOBIN 36.6 PG (27.0-34.0); MEAN CORPUSCULAR HGB CONC 34.8 % (32.0-36.0); MONO % 10.1 % (0.0-8.0); NEUT % 42.2 % (16.0-70.0); PLATELET COUNT 162 TH/MM3 (150-450); RED BLOOD COUNT 3.63 MIL/MM3 (4.00-5.30); RED CELL DISTRIBUTION WIDTH 13.6 % (11.6-17.2); WHITE BLOOD COUNT 5.3 TH/MM3 (4.0-11.0)
[2016-05-22] MEDS: SODIUM CHLORIDE 0.9% FLUSH 5 ML FLUSH IVF SCH ×2 (09:00→20:47)
[2016-05-22] MEDS: PANTOPRAZOLE SOD 20 MG DELAYED RELEASE TAB PO SCH (09:00)
[2016-05-22] MEDS: DOCUSATE SODIUM 50 MG/SENNA 8.6 MG TAB PO SCH ×2 (09:06→20:42)
[2016-05-22] MEDS: POTASSIUM CHLORIDE 20 MEQ CONTROLLED RELEASE TAB PO SCH (09:06)
[2016-05-22] MEDS: METOPROLOL TARTRATE 25 MG TAB PO SCH ×2 (09:06→20:43)
[2016-05-22] MEDS: levETIRAcetam 500 MG TAB PO SCH ×2 (09:07→20:43)
[2016-05-22] MEDS: PREGABALIN 100 MG CAP PO SCH (09:13)
--- NOTE | 2016-05-22 09:37 | RADRPT ---
EXAM DATE/TIME: 05/22/2016 09:24 [place] COMPARISON: CT BRAIN W/O CONTRAST, May 18, 2016, 9:19. INDICATIONS : Status of bleed. RADIATION DOSE: 51.68 CTDIvol (mGy) MEDICAL HISTORY : Hypertension. Gastroesophageal reflux disease. Diabetes. SURGICAL HISTORY : Tubal ligation. Tonsillectomy. ENCOUNTER: Initial ACUITY: 1 day PAIN SCALE: 0/10 LOCATION: cranial TECHNIQUE: Multiple contiguous axial images were obtained of the head. Using automated exposure control and adj ustment of the mA and/or kV according to patient size, radiation dose was kept as low as reasonably a chievable to obtain optimal diagnostic quality images. FINDINGS: Today's exam is compared to the prior study. Improving postoperative changes are demonstrated. The pr eviously noted acute blood adjacent to the falx on the left side has almost completely resolved. The intracranial air is almost completely resolved. The ventricles are normal in size. There continues to be some mild midline shift to the left by 3 mm which is improved compared to the prior study. The pr eviously noted left-sided subdural drain has been removed. No new areas of acute hemorrhage are seen. The posterior fossa is stable and unremarkable. CONCLUSION: There's been overall improvement compared to the prior examination. The acute hemorrhage adjacent to the posterior left falx has almost totally resolved. No new areas of hemorrhage are demonstrated. Ishan Hurtado MD on May 22, 2016 at 9:32 Board Certified Radiologist. This report was verified electronically.
--- NOTE | 2016-05-22 09:53 | HHI.NSPN ---
History Chief Complaint: pain Interval History 61 yr old with hep C and coagulopathy fell and is day 4 after drainage of SDH. She has a headache but is alert, eating, oriented x3 and able to walk. 05/22/16 Her headaches are gradually improving. She has asterixis and needs frequent re orientation. Review of Systems General: Negative for: fever, chills, insomnia Respiratory: Negative for: shortness of breath, cough, sputum Cardiovascular: Negative for: chest pain, palpitations, orthopnea Gastrointestinal: Negative for: nausea, vomitting, diarrhea, constipation Genitourinary: Negative for: urinary burning, urinary frequency, urinary urgency Exam Results Vital Signs Date Time Temp Pulse Resp B/P Pulse Ox O2 Delivery O2 Flow Rate FiO2 05/22/16 05:10 97.6 85 16 158/88 99 05/21/16 19:00 Room Air 05/21/16 10:45 21 05/19/16 19:44 2.00 Intake and Output 05/21/16 05/21/16 05/22/16 08:00 16:00 00:00 Intake Total 525 ml 240 ml Balance 525 ml 240 ml Physical Examination Alert, speech fluent, incision dry Oriented to Wallace, Hallie, Janice her friend, bleed and surgery Lungs clear, RRR, No pronator drift, moves all extremities well, asterixis and hallucinations as well as instability of gait noted. Lab, Micro, Other Results Laboratory Tests Test 05/22/16 05:16 White Blood Count 5.3 TH/MM3 Red Blood Count 3.63 MIL/MM3 Hemoglobin 13.3 GM/DL Hematocrit 38.2 % Mean Corpuscular Volume 105.2 FL Mean Corpuscular Hemoglobin 36.6 PG Mean Corpuscular Hemoglobin 34.8 % Concent Red Cell Distribution Width 13.6 % Platelet Count 162 TH/MM3 Mean Platelet Volume 9.8 FL Neutrophils (%) (Auto) 42.2 % Lymphocytes (%) (Auto) 44.9 % Monocytes (%) (Auto) 10.1 % Eosinophils (%) (Auto) 2.1 % Basophils (%) (Auto) 0.7 % Neutrophils # (Auto) 2.3 TH/MM3 Lymphocytes # (Auto) 2.4 TH/MM3 Monocytes # (Auto) 0.5 TH/MM3 Eosinophils # (Auto) 0.1 TH/MM3 Basophils # (Auto) 0.0 TH/MM3 CBC Comment DIFF FINAL Differential Comment Prothrombin Time 13.5 SEC Prothromb Time International 1.2 RATIO Ratio Sodium Level 137 MEQ/L Potassium Level 3.7 MEQ/L Chloride Level 99 MEQ/L Carbon Dioxide Level 28.0 MEQ/L Anion Gap 10 MEQ/L Blood Urea Nitrogen 9 MG/DL Creatinine 0.56 MG/DL Estimat Glomerular Filtration 110 ML/MIN Rate Random Glucose 179 MG/DL Calcium Level 9.9 MG/DL Medical Decision Making Impression and Plan 1- SDH Follow up CT is much improved 2- Gait instability OT/PT following. Fall precautions maintained 3- Hyponatremia secondary to SDH and may be worsened by SSRI. Will follow daily 4- Discharge planning Plan d/c home later this week. 5- Hallucinations. Ammonia level ordered. Gerber Clay May 22, 2016 09:53
[2016-05-22] MEDS ORDERED: cloNIDine HCL 0.1 MG TAB PO PRN (11:45)
[2016-05-22] MEDS: metFORMIN HCL 500 MG TAB PO SCH (17:23)
[2016-05-22] MEDS: PREGABALIN 75 MG CAP PO SCH (20:42)
[2016-05-22] MEDS: LISINOPRIL 10 MG TAB PO SCH (20:42)
[2016-05-22] MEDS: QUEtiapine FUMARATE 25 MG TAB PO SCH (20:43)
[2016-05-23 04:35] VITALS: BP 102/58; PULSE 84; RESP 16; TEMP 97.7; O2SAT 95
[2016-05-23] MEDS: INSULIN ASPART SUPPLEMENTAL SCALE SQ SCH ×4 (06:21→22:15)
[2016-05-23 08:00] VITALS: BP 97/62; PULSE 81; RESP 18; TEMP 97; O2SAT 95
[2016-05-23 08:12] LABS: ALKALINE PHOSPHATASE 85 U/L (45-117); ALT (GPT) 89 U/L (10-53); ANION GAP 10 MEQ/L (5-15); AST (GOT) 47 U/L (15-37); BICARBONATE 26.5 MEQ/L (21.0-32.0); BLOOD UREA NITROGEN 15 MG/DL (7-18); CHLORIDE 101 MEQ/L (98-107); GLOMERULAR FILTRATION RATE 52 ML/MIN (>89); SODIUM (NA) 137 MEQ/L (136-145); TOTAL BILIRUBIN ADULT 0.5 MG/DL (0.2-1.0)
[2016-05-23] MEDS: LISINOPRIL 10 MG TAB PO SCH (09:00)
[2016-05-23] MEDS: METOPROLOL TARTRATE 25 MG TAB PO SCH ×2 (09:00→21:54)
[2016-05-23] MEDS: metFORMIN HCL 500 MG TAB PO SCH ×2 (09:16→17:39)
[2016-05-23] MEDS: DOCUSATE SODIUM 50 MG/SENNA 8.6 MG TAB PO SCH ×2 (09:16→21:55)
[2016-05-23] MEDS: PANTOPRAZOLE SOD 20 MG DELAYED RELEASE TAB PO SCH (09:16)
[2016-05-23] MEDS: levETIRAcetam 500 MG TAB PO SCH ×2 (09:16→21:54)
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
[2016-05-23] MEDS: QUEtiapine FUMARATE 25 MG TAB PO SCH ×2 (09:17→21:55)
[2016-05-23] MEDS: POTASSIUM CHLORIDE 20 MEQ CONTROLLED RELEASE TAB PO SCH (09:17)
[2016-05-23] MEDS: PREGABALIN 75 MG CAP PO SCH (09:17)
[2016-05-23] MEDS: SODIUM CHLORIDE 0.9% FLUSH 5 ML FLUSH IVF SCH ×2 (09:23→21:55)
--- NOTE | 2016-05-23 10:56 | HHI.NSPN ---
History Chief Complaint: pain Interval History 61 yr old with hep C and coagulopathy fell and is day 4 after drainage of SDH. She has a headache but is alert, eating, oriented x3 and able to walk. 05/22/16 Her headaches are gradually improving. She has asterixis and needs frequent re orientation. 05/23/16 She is more alert and the tremors have improved. Her speech and orientation are improving. No hallucinations noted. Review of Systems General: Negative for: fever, chills, insomnia Respiratory: Negative for: shortness of breath, cough, sputum Cardiovascular: Negative for: chest pain, palpitations, orthopnea Gastrointestinal: Negative for: nausea, vomitting, diarrhea, constipation Genitourinary: Negative for: urinary burning, urinary frequency, urinary urgency Exam Results Vital Signs Date Time Temp Pulse Resp B/P Pulse Ox O2 Delivery O2 Flow Rate FiO2 05/23/16 08:00 97.0 81 18 97/62 95 05/22/16 08:20 21 05/21/16 19:00 Room Air 05/19/16 19:44 2.00 Intake and Output 05/22/16 05/22/16 05/23/16 08:00 16:00 00:00 Intake Total 120 ml 725 ml 240 ml Balance 120 ml 725 ml 240 ml Physical Examination Alert, speech fluent, incision dry Oriented to Hallie Gonsalez Nancy her friend, bleed and surgery Lungs clear, RRR, No pronator drift, moves all extremities well, asterixis and hallucinations improved Lab, Micro, Other Results Laboratory Tests Test 05/22/16 05/23/16 11:19 07:09 Ammonia 26 MCMOL/L Sodium Level 137 MEQ/L Potassium Level 4.0 MEQ/L Chloride Level 101 MEQ/L Carbon Dioxide Level 26.5 MEQ/L Anion Gap 10 MEQ/L Blood Urea Nitrogen 15 MG/DL Creatinine 1.07 MG/DL Estimat Glomerular Filtration 52 ML/MIN Rate Random Glucose 170 MG/DL Calcium Level 9.4 MG/DL Total Bilirubin 0.5 MG/DL Aspartate Amino Transf 47 U/L (AST/SGOT) Alanine Aminotransferase 89 U/L (ALT/SGPT) Alkaline Phosphatase 85 U/L Total Protein 7.9 GM/DL Albumin 3.2 GM/DL Medical Decision Making Impression and Plan 1- SDH Follow up CT is much improved 2- Gait instability OT/PT following. Fall precautions maintained 3- Hyponatremia secondary to SDH and may be worsened by SSRI. Will follow daily 4- Discharge planning Plan d/c home or to rehab this week 5- Hallucinations. Ammonia level is normal, improved Gerber Clay May 23, 2016 10:56
[2016-05-23] MEDS ORDERED: PILL SPLITTER OTHER PRN (11:15)
[2016-05-23 12:00] VITALS: BP 86/60; PULSE 88; RESP 18; TEMP 97.8; O2SAT 95
--- NOTE | 2016-05-23 14:32 | HHI.PR ---
Subjective Remarks No new complaints. Tolerating PO intake. Objective Vitals Vital Signs Date Time Temp Pulse Resp B/P Pulse Ox O2 Delivery O2 Flow Rate FiO2 05/23/16 12:00 97.8 88 18 86/60 95 05/23/16 08:00 97.0 81 18 97/62 95 05/23/16 04:35 97.7 84 16 102/58 95 05/22/16 23:48 98.1 84 16 103/68 97 05/22/16 20:00 98.2 87 16 150/70 98 05/22/16 16:39 99.3 69 18 134/70 99 05/22/16 05/22/16 05/23/16 15:00 23:00 07:00 Intake Total 725 ml 240 ml 240 ml Balance 725 ml 240 ml 240 ml Intake Oral 725 ml 240 ml 240 ml # Voids 4 2 2 # Bowel Movements 2 0 Result Diagram: 05/22/16 0516 05/23/16 0709 Imaging Last Impressions Head CT 05/22/16 0830 Signed Impressions: Service Date/Time: Sunday, May 22, 2016 09:24 - CONCLUSION: There's been overall improvement compared to the prior examination. The acute hemorrhage adjacent to the posterior left falx has almost totally resolved. No new areas of hemorrhage are demonstrated. Ishan Hurtado MD Chest X-Ray 05/17/161913 Signed Impressions: Service Date/Time: Tuesday, May 17, 2016 20:00 - CONCLUSION: No acute disease. Ashish Roth Jr., MD Objective Remarks GENERAL: This is a well-nourished, well-developed patient, in no apparent distress. CARDIOVASCULAR: Regular rate and rhythm without murmurs, gallops, or rubs. RESPIRATORY: Clear to auscultation. Breath sounds equal bilaterally. No wheezes , rales, or rhonchi. GASTROINTESTINAL: Abdomen soft, non-tender, nondistended. Normal active bowel sounds MUSCULOSKELETAL: Extremities without clubbing, cyanosis, or edema. NEURO: Alert & Oriented x4 to person, place, time, situation. Moves all ext x4 Date of Insertion: May 18, 2016 Date of Removal: May 20, 2016 A/P Problem List: (1) Subdural hematoma Status: Acute Plan: Pt with hiv and hep c. became depressed and stopped eating and taking her meds. Fell and presented with sdh now s/p evacuation transferred to med/surg. stable nsg following and d/c once cleared by nsg. discussed today. overall improving mentally. pt/ambulate resume dm meds slowly will plan for pt to resume her antiviral meds at d/c cont htn meds. titrate as needed. replace kcl and recheck. dvt prophylaxis. psychiatry following and adjusting meds for depression/psychosis. 05/23/16 - Pt tolerating PO intake - no new clinical complaints - anticipate d/c to SNF in next 1-2 days (2) Hepatitis C Status: Chronic Plan: - see above (3) HIV (human immunodeficiency virus infection) Status: Chronic Plan: - see above (4) HTN (hypertension) Status: Chronic Plan: - hypotensive today - BP meds held today (5) Anxiety Status: Chronic (6) DM (diabetes mellitus) Status: Chronic Plan: - SSI Problem Qualifiers (1) HTN (hypertension): Qualified Code: I10 - Essential hypertension (2) DM (diabetes mellitus): Qualified Code: E11.8 - Type 2 diabetes mellitus with complication, with long- term current use of insulin Gavin Gusman DO May 23, 2016 14:32
[2016-05-23 14:38] VITALS: BP 103/67; PULSE 99
[2016-05-23 15:58] VITALS: BP 92/59; PULSE 85; RESP 20; TEMP 97.5; O2SAT 94
[2016-05-23 20:00] VITALS: BP 107/74; PULSE 105; RESP 18; TEMP 97.7; O2SAT 96
[2016-05-23] MEDS: PREGABALIN 25 MG CAP PO SCH (21:55)
[2016-05-24] VITALS: BP 129/76; PULSE 81; RESP 20; TEMP 97.9; O2SAT 99
[2016-05-24] MEDS: INSULIN ASPART SUPPLEMENTAL SCALE SQ SCH ×3 (06:28→17:13)
[2016-05-24 06:52] VITALS: BP 121/77; PULSE 87; RESP 20; TEMP 96.6; O2SAT 97
[2016-05-24] MEDS: SODIUM CHLORIDE 0.9% FLUSH 5 ML FLUSH IVF SCH (08:12)
[2016-05-24] MEDS: levETIRAcetam 500 MG TAB PO SCH (08:13)
[2016-05-24] MEDS: QUEtiapine FUMARATE 25 MG TAB PO SCH (08:13)
[2016-05-24] MEDS: METOPROLOL TARTRATE 25 MG TAB PO SCH (08:13)
[2016-05-24] MEDS: DOCUSATE SODIUM 50 MG/SENNA 8.6 MG TAB PO SCH (08:14)
[2016-05-24] MEDS: POTASSIUM CHLORIDE 20 MEQ CONTROLLED RELEASE TAB PO SCH (08:14)
[2016-05-24] MEDS: metFORMIN HCL 500 MG TAB PO SCH ×2 (08:14→17:12)
[2016-05-24] MEDS: PREGABALIN 25 MG CAP PO SCH (08:14)
[2016-05-24] MEDS: PANTOPRAZOLE SOD 20 MG DELAYED RELEASE TAB PO SCH (08:14)
[2016-05-24 08:29] VITALS: BP 113/76; PULSE 86; RESP 20; TEMP 98; O2SAT 97
[2016-05-24 12:12] VITALS: BP 127/80; PULSE 84; RESP 20; TEMP 97.4; O2SAT 98
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
--- NOTE | 2016-05-24 12:40 | MP ---
cc: GERBER MENDOZA MD DATE OF SURGERY 05/17/2016 PREOPERATIVE DIAGNOSIS Left-sided subdural hematoma, subacute. POSTOPERATIVE DIAGNOSIS Left-sided subdural hematoma, subacute. PROCEDURE Left frontal karla hole for evacuation of subdural bleed. ANESTHESIA General. SURGEON Gerber Mendoza MD INDICATION The patient is a 62-year-old lady with a history of HIV and hepatitis C as well as psychiatric problem and depression who presented after several falls. She was taken to the emergency room by a friend and was found to have a left subdural collection with a [id number] shift. On exam she was awake but confused with a slightly larger left pupil than the right side, 2.5-mm versus 2-mm and moving all extremities. She was taken to the operating room for decompression. TECHNIQUE The patient was taken to the operating room, placed supine on the OR table. Anesthesia was induced and the patient intubated orally. Potts and then an arterial line were placed. The left frontal area above the temporal squama and behind the coronal suture was clipped and then prepped with iodine scrub, followed by the iodine paint. It was allowed to dry. An Ioban was placed over the planned incision and the planned incision was made in a semilunar fashion measuring approximately 3 cm and infiltrated with 10 cc of 1% lidocaine with epinephrine. The incision was made with a 15 blade. This was carried through the galea with the monopolar cautery. The subperiosteal dissection was carried out and the temporal squama as well as the coronal suture were exposed. A single karla hole was placed at that junction. Hemostasis was obtained with bone wax. The dura was coagulated and opened with an 11 blade. The subdural collection came out under pressure and was brownish in color. Several subdural membranes were coagulated. The microscope was then brought into the field for better visualization of the brain itself. External ventricular drain was then used to irrigate the frontal temporoparietal regions. This was continued until the brain was pulsating to the brain surface. The catheter was then left in place and tunneled under the scalp. It was secured to a Codman drainage system sterilely. Hemostasis was obtained with FloSeal and Gelfoam. The galea was closed with interrupted 2-0 Vicryl sutures. A running 3-0 nylon and nga were used to close the skin edges as to prevent further rebleeding. A purse string nylon was placed around the drain and the drain was secured. The wound was then dressed with Medipore tape and Telfa, followed by Kerlix. The patient was then brought back to the ICU intubated and stable. Gerber Mendoza MD YYG/SSB /11:23 PM /12:29 PM ZACH
[2016-05-24] MEDS ORDERED: LEVE500 PO (12:49)
[2016-05-24] MEDS ORDERED: QUET1TAB7 PO (12:49)
[2016-05-24] MEDS ORDERED: PREG25 PO (12:49)
--- NOTE | 2016-05-24 13:00 | HHI.DS ---
Discharge Summary Admission Date May 17, 2016 at 20:46 Discharge Date: May 25, 2016 Admitting Diagnosis acute subdural hematoma with midline shift (1) Subdural hematoma ICD Code: I62.00 (2) Hepatitis C Diagnosis: Secondary ICD Code: B19.20 (3) HIV (human immunodeficiency virus infection) Diagnosis: Secondary ICD Code: Z21 (4) HTN (hypertension) Diagnosis: Secondary ICD Code: I10 (5) Anxiety Diagnosis: Secondary ICD Code: F41.9 (6) DM (diabetes mellitus) Diagnosis: Secondary ICD Code: E11.9 Procedures 05/17/16 Left frontal karla hole for evacuation of bleed CBC/BMP: 05/22/16 0516 05/23/16 0709 Significant Findings Laboratory Tests Test 05/22/16 05/23/16 05:16 07:09 Red Blood Count 3.63 MIL/MM3 (4.00-5.30) Mean Corpuscular Volume 105.2 FL (80.0-100.0) Mean Corpuscular Hemoglobin 36.6 PG (27.0-34.0) Lymphocytes (%) (Auto) 44.9 % (9.0-44.0) Monocytes (%) (Auto) 10.1 % (0.0-8.0) Prothrombin Time 13.5 SEC (9.8-11.6) Random Glucose 179 MG/DL 170 MG/DL (74-106) (74-106) Creatinine 1.07 MG/DL (0.50-1.00) Estimat Glomerular Filtration 52 ML/MIN (>89) Rate Aspartate Amino Transf 47 U/L (15-37) (AST/SGOT) Alanine Aminotransferase 89 U/L (10-53) (ALT/SGPT) Albumin 3.2 GM/DL (3.4-5.0) Hospital Course 61 yr old fell repeatedly at home and became very weak and confused. She was brought in by car and found to have SDH with shift. She improved neurologically after drainage of the bleed but suffers from hallucinations and unsteady gait. Rehab is requested. Pt Condition on Discharge: Good Discharge Disposition: Discharge to SNF Discharge Instructions DIET: Follow Instructions for: Diabetic Diet Speech Therapy-Diet Recommenda: Regular ACTIVITIES You can perform: Weight Bearing As Denisa Activities to Avoid: Lifting/Bending, Driving Follow up Referrals: Neurosurgery - 1 Month @ [facility] PCP Follow-up New Medications: Levetiracetam (Keppra) 500 Mg Tab 500 MG PO Q12HR prevent seizures #60 Ref 5 TAB Pregabalin (Lyrica) 25 Mg Cap 50 MG PO BID nerve pain #60 Ref 5 CAP Quetiapine (Quetiapine) 25 Mg Tab 50 MG PO BID prevent hallucinations #60 Ref 5 TAB Continued Medications: 1-Methyl 2-Pyrrolidone (Bulk) (1-Methyl 2-Pyrrolidinone) 10 Mg Tab 1 TAB PO DAILY TAB Alprazolam (Xanax) 0.5 Mg Tab 0.5 MG PO DAILYPRN Amlodipine (Amlodipine) 10 Mg Tab 10 MG PO DAILY Blood Pressure Management #30 Ref 0 TAB Cholecalciferol (Vitamin D) 5,000 Unit Tab 2000 UNIT PO DAILY TAB Empagliflozin (Jardiance) 25 Mg Tab 25 MG PO DAILY Blood Sugar Management #30 Ref 0 TAB Gabapentin (Gabapentin) 300 Mg Cap 300 MG PO HS #30 Ref 0 CAP Glimepiride (Glimepiride) 4 Mg Tab 4 MG PO DAILY Take with breakfast or first main meal Blood Sugar Management #30 Ref 0 TAB Insulin Detemir (Levemir Insulin) 100 Units/Ml Inj 10 UNITS SQ BID #10 ML Metoprolol Tartrate 25 mg (Metoprolol Tartrate 25 mg) 25 Mg Tab 25 MG PO BID TAB Omeprazole (Hm Omeprazole) 20 Mg Tab 20 MG PO DAILY TAB Pantoprazole (Pantoprazole) 40 Mg Tab 40 MG PO DAILY Reflux #30 Ref 0 TAB Propranolol (Propranolol) 10 Mg Tab 10 MG PO Q12HR #60 Ref 0 TAB Ribavirin (Ribavirin) 200 Mg Cap 400 MG PO BID Ritonavir (Norvir) 100 Mg Cap 50 MG PO Mgmt Viral Infection #180 Ref 0 CAP Sertraline (Sertraline) 25 Mg Tab 25 MG PO DAILY #30 Ref 0 TAB Valacyclovir (Valacyclovir) 500 Mg Tab 500 MG PO DAILY Mgmt Viral Infection #30 Ref 0 TAB Discontinued Medications: () 100 Mg Cap 100 MG PO BID Gerber Martinez May 24, 2016 13:00
[2016-05-24 16:27] VITALS: BP 105/69; PULSE 85; RESP 20; TEMP 98.5; O2SAT 99
--- NOTE | 2016-06-04 23:01 | PD.CONS ---
HPI Service Neurosurgery Consult Requested By ED Reason for Consult SDH Primary Care Physician Shazia Rolon Jr, MD History of Present Illness The patient is a 62-year-old lady with a history of HIV and hepatitis C as well as psychiatric problem and depression who presented after several falls. She was taken to the emergency room by a friend and was found to have a left subdural collection with a [id number] shift. On exam she was awake but confused with a slightly larger left pupil than the right side, 2.5-mm versus 2-mm and moving all extremities. She was taken to the operating room for decompression. Review of Systems ROS Limitations: Intoxication Past Family Social History Allergies: Coded Allergies: Iohexol (OMNIPAQUE) (Verified Allergy, Severe, Hives, 07/06/15) date of allergy 06/20/11: facial hives and itching Codeine (Verified Adverse Reaction, Severe, NAUSEA, 07/06/15) Past Medical History Hep C. HIV pos, HTN Hepatitis Chronic pain previous g[place] Neuropathy Reported Medications Reported Meds & Active Scripts Active Quetiapine (Quetiapine Fumarate) 25 Mg Tab 50 Mg PO BID Lyrica (Pregabalin) 25 Mg Cap 50 Mg PO BID Keppra (Levetiracetam) 500 Mg Tab 500 Mg PO Q12HR Reported Valacyclovir (Valacyclovir HCl) 500 Mg Tab 500 Mg PO DAILY Amlodipine (Amlodipine Besylate) 10 Mg Tab 10 Mg PO DAILY Propranolol (Propranolol HCl) 10 Mg Tab 10 Mg PO Q12HR Sertraline (Sertraline HCl) 25 Mg Tab 25 Mg PO DAILY Pantoprazole (Pantoprazole Sodium) 40 Mg Tab 40 Mg PO DAILY Glimepiride 4 Mg Tab 4 Mg PO DAILY Take with breakfast or first main meal Gabapentin 300 Mg Cap 300 Mg PO HS Jardiance (Empagliflozin) 25 Mg Tab 25 Mg PO DAILY Ribavirin 200 Mg Cap 400 Mg PO BID [dasabuvir] 250 Mg PO Norvir (Ritonavir) 100 Mg Cap 50 Mg PO [paritaprevir] 75 Mg PO [ombitasvir] 12.5 Mg PO [Other] WEEKLY Vitamin D (Cholecalciferol) 5,000 Unit Tab 2,000 Unit PO DAILY 1-Methyl 2-Pyrrolidinone (1-Methyl 2-Pyrrolidone (Bulk)) 10 Mg Tab 1 Tab PO DAILY Metoprolol Tartrate 25 mg (Metoprolol Tartrate) 25 Mg Tab 25 Mg PO BID Hm Omeprazole (Omeprazole) 20 Mg Tab 20 Mg PO DAILY Levemir Insulin (Insulin Detemir) 100 Units/Ml Inj 10 Units SQ BID Xanax (Alprazolam) 0.5 Mg Tab 0.5 Mg PO DAILYPRN Family History not known Social History Lives alone , has a daughter in [facility], Physical Exam Vital Signs Physical Exam Awake but confused lady, thin, appears her age, Speech confused, pupils are reactive, Follows commands but lethargic, moves all extremities with good strength Bruising extensive on the extremities, no peripheral edema Abd soft, NT Assessment and Plan Diagnosis: (1) Subdural hematoma Plan: Chronic and subacute SDH indicating falls of different ages, explain her lethargy and poor balance. Evacuation of the bleed via a karla hole is recommended for decompression of the brain. Seizure prophylaxis, nutritional support and psychiatry consult are planned. ICD Code: I62.00 Gerber Clay Jun 04, 2016 23:01
== END 2016-05-24 17:39 | DRG 25 ==
LOC: NEPE 17:54 → NEDA 20:46 → HPAC 21:56 → N03A 05-18 01:45 → N05A 05-20 22:27 → N05B 05-21 02:14
PROVIDERS: ADMIT Neurological Surgery; ATTEND Neurological Surgery
PROC: 5A1945Z Respiratory Ventilation, 24-96 Consecutive Hours (ICD-10-PCS; 2016-05-17)
PROC: 0D9670Z Drainage of Stomach with Drainage Device, Via Natural or Artificial Opening (ICD-10-PCS; 2016-05-17)
PROC: 009430Z Drainage of Intracranial Subdural Space with Drainage Device, Percutaneous Approach (ICD-10-PCS; principal; 2016-05-17 21:19)
DX: S06.5X0A Traumatic subdural hemorrhage without loss of consciousness, initial encounter (principal); J95.821 Acute postprocedural respiratory failure; E87.2 Acidosis; E87.1 Hypo-osmolality and hyponatremia; G62.9 Polyneuropathy, unspecified; I10 Essential (primary) hypertension; B19.20 Unspecified viral hepatitis C without hepatic coma; W19.XXXA Unspecified fall, initial encounter; Y93.9 Activity, unspecified; Y92.9 Unspecified place or not applicable; E11.9 Type 2 diabetes mellitus without complications; K21.9 Gastro-esophageal reflux disease without esophagitis; F41.9 Anxiety disorder, unspecified; R25.1 Tremor, unspecified; F29 Unspecified psychosis not due to a substance or known physiological condition; F10.10 Alcohol abuse, uncomplicated; F32.9 Major depressive disorder, single episode, unspecified; Z21 Asymptomatic human immunodeficiency virus [HIV] infection status; E87.6 Hypokalemia; Z79.4 Long term (current) use of insulin
CPT/HCPCS: 70450; 71010; 80048; 80053; 80076; 80307; 80320; 81001; 82140; 82550; 82805; 82948; 83605; 83735; 84100; 84132; 84484; 85025; 85027; 85384; 85610; 85730; 87040; 87641; 88304; 93005; 94002; 94003; 94150; C9113; J0171; J0461; J0690; J1580; J1815; J1953; J2270; J2370; J2405; J3010; J3480; J7030; J7050; J7120

== ENCOUNTER 2016-06-16 22:49 | Emergency (ER) | payer OTHER ==
[~2016-06-16] VITALS: Ht 162.6 cm; Wt 60.0 kg
[~2016-06-16 22:49] MED LIST changes: +AMLO10TA2 PO; +EMPA1TAB3 PO; +GABA300C5 PO; +GLIM4TAB PO; -LACTATED RINGER'S 1000 ML INJ 1,000 ML IV ONE; +LEVE500 PO; +PANT40TA3 PO; -PHENYLEPH/NS 1000 MCG/10 ML SYR IV ONE; -PREG100 PO; +PREG25 PO; +PROP10TA6 PO; -PROPOFOL 200 MG/20 ML AMP IV ONE; +QUET1TAB7 PO; +RIBA200C5 PO; +RITO100 PO; +SERT25TA83 PO; +VALA500T PO; +[UNRECOGNIZED DRUG - OTHER] PO; +[UNRECOGNIZED DRUG - OTHER] PO; +[UNRECOGNIZED DRUG - OTHER] PO
[2016-06-16 22:54] VITALS: BP 171/95; PULSE 96; RESP 20; TEMP 98.4; O2SAT 99
[2016-06-16 22:58] VITALS: BP 171/95; PULSE 97; RESP 20; O2SAT 99
[2016-06-16] MEDS ORDERED: SODIUM CHLOR 0.9% 1000 ML INJ 1,000 ML IV ONE (22:58)
[2016-06-16] MEDS ORDERED: MORPHINE SULFATE 4 MG/ML INJ IV PUSH ONE (23:00)
[2016-06-16] MEDS ORDERED: SODIUM CHLORIDE 0.9% FLUSH 5 ML FLUSH IVF PRN (23:00)
[2016-06-16] MEDS ORDERED: diphenhydrAMINE HCL 50 MG/ML VIAL IVP ONE (23:00)
[2016-06-16] MEDS ORDERED: PROCHLORPERAZINE INJ 10 MG/2 ML VIAL IVP ONE (23:00)
[2016-06-16 23:01] VITALS: BP 168/89; PULSE 96; RESP 20; O2SAT 98
--- NOTE | 2016-06-16 23:05 | PD ---
HPI Chief Complaint: GI Complaint Time Seen by Provider: 22:52 Travel History International Travel<30 days: No Contact w/Intl Traveler<30days: No Traveled to known affect area: No History of Present Illness HPI The patient is a 61-year-old female who presents emergency department via EMS for headache with nausea, vomiting, blurry vision. The patient has a history of a subdural hematoma who underwent bur hole placement in April 2016 by the neurosurgeon, Dr. Clay. The patient then was discharged to [facility]'s auscultation home. The patient states earlier today she was lying on the couch, when she suddenly felt like her heart was beating fast and she developed a headache. The patient lie down on the couch, but then developed a left frontal headache that now radiates to right aspect of her head. The patient also had some nausea with 5 episodes of vomiting. The patient states the visual changes, blurry vision, has slightly improved, however , she continues to have a headache. The patient also has a history of HIV, currently does not take her antiviral secondary to medication side effects. She was followed by her HIV physician, Dr. Torrez. The patient's primary physician is Dr. Lebron. PFSH Past Medical History Arthritis: No Autoimmune Disease: Yes Blood Disorders: No Anxiety: Yes Cancer: No Cardiovascular Problems: No Diabetes: Yes Patient Takes Glucophage: Yes Diminished Hearing: No Endocrine: Yes Gastrointestinal Disorders: Yes (ACID REFLUX ) Glaucoma: No Genitourinary: No Hepatitis: Yes (HEPATITIS C ) Hiatal Hernia: No Hypertension: Yes Immune Disorder: No Implanted Vascular Access Dvce: No Medical other: Yes (HIV POSITIVE, 2 & 3RD DEGREE CONTI TO BOTH FEET 05/10/14 ( PEDICURE)) Musculoskeletal: No Neurologic: Yes (NEUROPATHY BOTH FEET) Psychiatric: Yes (ANXIETY; SITUATIONAL DEPRESSION ) Reproductive: No Respiratory: No Thyroid Disease: No PNEUMOCCOCAL Vaccine (Year): 2 Menopausal: Yes Tubal Ligation: Yes Past Surgical History Abdominal Surgery: No AICD: No Body Medical Devices: NONE Cardiac Surgery: No Ear Surgery: No Endocrine Surgery: No Eye Surgery: Yes (LEFT/RIGHT CATARACT WITH LENS, UPPER LID BLEPHROPLASTY) Genitourinary Surgery: No Gynecologic Surgery: Yes (TUBAL LIGATION) Joint Replacement: No Neurologic Surgery: Yes (SUBDURAL BLEED WITH SX) Oral Surgery: Yes (T & A) Pacemaker: No Thoracic Surgery: No Tonsillectomy: Yes Other Surgery: Yes Social History Alcohol Use: No Tobacco Use: No Substance Use: No Allergies-Medications (Allergen,Severity, Reaction): Coded Allergies: Iohexol (OMNIPAQUE) (Verified Allergy, Severe, Hives, 06/16/16) date of allergy 06/20/11: facial hives and itching Codeine (Verified Adverse Reaction, Severe, NAUSEA, 06/16/16) Reported Meds & Prescriptions Reported Meds & Active Scripts Active Lyrica (Pregabalin) 25 Mg Cap 50 Mg PO BID Reported Valacyclovir (Valacyclovir HCl) 500 Mg Tab 500 Mg PO DAILY Amlodipine (Amlodipine Besylate) 10 Mg Tab 10 Mg PO DAILY Propranolol (Propranolol HCl) 10 Mg Tab 10 Mg PO Q12HR Sertraline (Sertraline HCl) 25 Mg Tab 25 Mg PO DAILY Pantoprazole (Pantoprazole Sodium) 40 Mg Tab 40 Mg PO DAILY Gabapentin 300 Mg Cap 300 Mg PO HS Jardiance (Empagliflozin) 25 Mg Tab 25 Mg PO DAILY Ribavirin 200 Mg Cap 400 Mg PO BID [dasabuvir] 250 Mg PO Norvir (Ritonavir) 100 Mg Cap 50 Mg PO [paritaprevir] 75 Mg PO [ombitasvir] 12.5 Mg PO [Other] WEEKLY Review of Systems Except as stated in HPI: all other systems reviewed are Neg General / Constitutional: No: Fever Eyes: Positive: Blurred Vision, Photophobia HENT: Positive: Headaches Cardiovascular: Positive: Palpitations, No: Chest Pain or Discomfort Respiratory: No: Shortness of Breath Gastrointestinal: Positive: Nausea, Vomiting, No: Abdominal Pain Musculoskeletal: No: Weakness Neurologic: Positive: Dizziness, Headache Physical Exam Narrative GENERAL: Awake, alert, pleasant 61-year-old female who appears her stated age and is in no acute respiratory distress. SKIN: Warm and dry. HEAD: Healing scar over the left temporal parietal area. EYES: Pupils equal and round. No scleral icterus. No injection or drainage. ENT: No nasal bleeding or discharge. Mucous membranes pink and moist. NECK: Trachea midline. No JVD. No meningeal signs. CARDIOVASCULAR: Regular rate and rhythm. No murmur appreciated. Heart rate in the 90s. RESPIRATORY: No accessory muscle use. Clear to auscultation. Breath sounds equal bilaterally. GASTROINTESTINAL: Abdomen soft, non-tender, nondistended. No rebound tenderness. MUSCULOSKELETAL: No obvious deformities. No clubbing. No cyanosis. No edema. NEUROLOGICAL: Awake and alert. No obvious cranial nerve deficits. Motor grossly within normal limits. Normal speech. Nonfocal. No drift of the upper or lower extremities. Gross motor strength is 4+/5 in all 4 extremities. PSYCHIATRIC: Appropriate mood and affect; insight and judgment normal. Data Data Last Documented VS Vital Signs Date Time Temp Pulse Resp B/P Pulse Ox O2 Delivery O2 Flow Rate FiO2 06/16/16 23:06 20 99 Room Air 06/16/16 23:01 96 168/89 06/16/16 22:54 98.4 Orders Complete Blood Count With Diff (06/16/16 22:58) Comprehensive Metabolic Panel (06/16/16 22:58) Prothrombin Time / Inr (Pt) (06/16/16 22:58) Act Partial Throm Time (Ptt) (06/16/16 22:58) Ct Brain W/O Iv Contrast(Rout) (06/16/16 22:58) Ecg Monitoring (06/16/16 22:58) Iv Access Insert/Monitor (06/16/16 22:58) Oximetry (06/16/16 22:58) Sodium Chloride 0.9% Flush (Ns Flush) (06/16/16 23:00) Prochlorperazine Inj (Compazine Inj) (06/16/16 23:00) Diphenhydramine Inj (Benadryl Inj) (06/16/16 23:00) Sodium Chlor 0.9% 1000 Ml Inj (Ns 1000 M (06/16/16 22:58) Morphine Inj (Morphine Inj) (06/16/16 23:00) Labs Laboratory Tests Test 06/16/16 23:00 White Blood Count 7.0 TH/MM3 Red Blood Count 4.14 MIL/MM3 Hemoglobin 14.4 GM/DL Hematocrit 42.2 % Mean Corpuscular Volume 101.9 FL Mean Corpuscular Hemoglobin 34.8 PG Mean Corpuscular Hemoglobin 34.2 % Concent Red Cell Distribution Width 13.6 % Platelet Count 139 TH/MM3 Mean Platelet Volume 10.8 FL Neutrophils (%) (Auto) 58.3 % Lymphocytes (%) (Auto) 34.9 % Monocytes (%) (Auto) 5.3 % Eosinophils (%) (Auto) 1.1 % Basophils (%) (Auto) 0.4 % Neutrophils # (Auto) 4.1 TH/MM3 Lymphocytes # (Auto) 2.4 TH/MM3 Monocytes # (Auto) 0.4 TH/MM3 Eosinophils # (Auto) 0.1 TH/MM3 Basophils # (Auto) 0.0 TH/MM3 CBC Comment DIFF FINAL Differential Comment Prothrombin Time 12.5 SEC Prothromb Time International 1.1 RATIO Ratio Activated Partial 27.6 SEC Thromboplast Time Sodium Level 134 MEQ/L Potassium Level 3.7 MEQ/L Chloride Level 98 MEQ/L Carbon Dioxide Level 22.3 MEQ/L Anion Gap 14 MEQ/L Blood Urea Nitrogen 10 MG/DL Creatinine 0.45 MG/DL Estimat Glomerular Filtration 141 ML/MIN Rate Random Glucose 115 MG/DL Calcium Level 9.1 MG/DL Total Bilirubin 0.8 MG/DL Aspartate Amino Transf 27 U/L (AST/SGOT) Alanine Aminotransferase 35 U/L (ALT/SGPT) Alkaline Phosphatase 113 U/L Total Protein 9.2 GM/DL Albumin 4.0 GM/DL [facility] Medical Decision Making Medical Screen Exam Complete: Yes Emergency Medical Condition: Yes Medical Record Reviewed: Yes Interpretation(s) EKG reveals normal sinus rhythm with a rate in 91. Low QRS voltage in precordial leads. Q wave noted in lead 3 with inverted T waves. Laboratory Tests Test 06/16/16 23:00 White Blood Count 7.0 TH/MM3 Red Blood Count 4.14 MIL/MM3 Hemoglobin 14.4 GM/DL Hematocrit 42.2 % Mean Corpuscular Volume 101.9 FL Mean Corpuscular Hemoglobin 34.8 PG Mean Corpuscular Hemoglobin 34.2 % Concent Red Cell Distribution Width 13.6 % Platelet Count 139 TH/MM3 Mean Platelet Volume 10.8 FL Neutrophils (%) (Auto) 58.3 % Lymphocytes (%) (Auto) 34.9 % Monocytes (%) (Auto) 5.3 % Eosinophils (%) (Auto) 1.1 % Basophils (%) (Auto) 0.4 % Neutrophils # (Auto) 4.1 TH/MM3 Lymphocytes # (Auto) 2.4 TH/MM3 Monocytes # (Auto) 0.4 TH/MM3 Eosinophils # (Auto) 0.1 TH/MM3 Basophils # (Auto) 0.0 TH/MM3 CBC Comment DIFF FINAL Differential Comment Prothrombin Time 12.5 SEC Prothromb Time International 1.1 RATIO Ratio Activated Partial 27.6 SEC Thromboplast Time Sodium Level 134 MEQ/L Potassium Level 3.7 MEQ/L Chloride Level 98 MEQ/L Carbon Dioxide Level 22.3 MEQ/L Anion Gap 14 MEQ/L Blood Urea Nitrogen 10 MG/DL Creatinine 0.45 MG/DL Estimat Glomerular Filtration 141 ML/MIN Rate Random Glucose 115 MG/DL Calcium Level 9.1 MG/DL Total Bilirubin 0.8 MG/DL Aspartate Amino Transf 27 U/L (AST/SGOT) Alanine Aminotransferase 35 U/L (ALT/SGPT) Alkaline Phosphatase 113 U/L Total Protein 9.2 GM/DL Albumin 4.0 GM/DL CT the head reveals no acute disease. There is mild atrophy. Left frontal karla hole identified. No signs of intracranial hemorrhage, mass, or acute infarct. Vascular calcifications are noted. No fractures. Differential Diagnosis Differential diagnosis includes subdural hematoma, hygroma, postoperative headache, migraine, tension headache, cluster headache, meningitis, encephalitis. Narrative Course IV was established, labs were drawn and sent, and the patient was placed on cardiac telemetry monitoring and continuous pulse oximetry monitoring. CT of the brain was ordered. The patient was administered Compazine, Benadryl, morphine, and IV fluids. Laboratory evaluation was unremarkable. CT of the brain reveals no acute disease. No signs of intracranial hemorrhage, mass, or acute infarct. The patient was reevaluated at 12:47 AM. The patient's headache has significantly improved. The patient will be discharged home on Oran as needed for headache and Zofran as needed for nausea. The patient is advised to follow-up with her primary physician and return if symptoms worsen or progress. The patient will be provided a copy of her lab results and CT results at discharge. Diagnosis Primary Impression: Cephalgia Qualified Code: R51 - Acute nonintractable headache, unspecified headache type Patient Instructions: General Instructions Additional Instructions: Medications as directed. Please provide the patient a copy of her CT results and lab results at discharge. Return if symptoms worsen or progress. Follow- up with your primary physician. Med/Other Pt SpecificInfo: Prescription(s) given Scripts Ondansetron Odt (Zofran Odt)4 Mg Tab4 Mg SL Q6HR PRN (Nausea/Vomiting) #7 TAB Ref 0 Prov:Abhinav Cohen MD 06/17/16 Hydrocodone-Acetaminophen (Oran)5-325 mg Tab1 Tab PO Q6H PRN (PAIN) #12 TAB Ref 0 Prov:Abhinav Cohen MD 06/17/16 Disposition: 01 DISCHARGE HOME Condition: Stable Abhinav Cohen MD Jun 16, 2016 23:05
[2016-06-16 23:06] VITALS: RESP 20; O2SAT 99
[2016-06-16 23:31] LABS: AUTOMATED NEUTROPHIL # 4.1 TH/MM3 (1.8-7.7); BASOPHIL % 0.4 % (0.0-2.0); EOSINOPHIL # 0.1 TH/MM3 (0-0.4); EOSINOPHIL % 1.1 % (0.0-4.0); HEMATOCRIT 42.2 % (35.0-46.0); HEMO FLAGS DIFF FINAL; LYMPH % 34.9 % (9.0-44.0); LYMPHOCYTE # 2.4 TH/MM3 (1.0-4.8); MEAN CELL VOLUME 101.9 FL (80.0-100.0); MEAN CORPUSCULAR HEMOGLOBIN 34.8 PG (27.0-34.0); MEAN CORPUSCULAR HGB CONC 34.2 % (32.0-36.0); MONO % 5.3 % (0.0-8.0); NEUT % 58.3 % (16.0-70.0); PLATELET COUNT 139 TH/MM3 (150-450); RED BLOOD COUNT 4.14 MIL/MM3 (4.00-5.30); RED CELL DISTRIBUTION WIDTH 13.6 % (11.6-17.2)
[2016-06-16 23:33] LABS: APTT (PATIENT) 27.6 SEC (24.3-30.1); INTERNATIONAL NORMALIZED RATIO 1.1 RATIO; PROTHROMBIN TIME - PATIENT 12.5 SEC (9.8-11.6)
[2016-06-16 23:58] LABS: ANION GAP 14 MEQ/L (5-15); AST (GOT) 27 U/L (15-37); BICARBONATE 22.3 MEQ/L (21.0-32.0); BLOOD UREA NITROGEN 10 MG/DL (7-18); CHLORIDE 98 MEQ/L (98-107); GLOMERULAR FILTRATION RATE 141 ML/MIN (>89); POTASSIUM 3.7 MEQ/L (3.5-5.1); SODIUM (NA) 134 MEQ/L (136-145)
[2016-06-17 00:01] LABS: ALKALINE PHOSPHATASE 113 U/L (45-117); ALT (GPT) 35 U/L (10-53); TOTAL BILIRUBIN ADULT 0.8 MG/DL (0.2-1.0)
--- NOTE | 2016-06-17 00:45 | RADRPT ---
EXAM DATE/TIME: 06/17/2016 00:31 [facility] COMPARISON: CT BRAIN W/O CONTRAST, May 22, 2016, 9:24. INDICATIONS : Headache along with nausea, vomiting and blurry vision. RADIATION DOSE: 56.35 CTDIvol (mGy) MEDICAL HISTORY : HIV. Hypertension. Hepatitis C. SURGICAL HISTORY : Karla hole ENCOUNTER: Initial ACUITY: 3 weeks PAIN SCALE: 8/10 LOCATION: Left cranial TECHNIQUE: Multiple contiguous axial images were obtained of the head. Using automated exposure control and adj ustment of the mA and/or kV according to patient size, radiation dose was kept as low as reasonably a chievable to obtain optimal diagnostic quality images. FINDINGS: There is mild atrophy. Left frontal karla hole identified. No signs of intracranial hemorrhage, mass, or acute infarct. Vascular calcifications are noted. No fractures. CONCLUSION: No acute disease. Rodriguez Anderson MD on June 17, 2016 at 0:44 Board Certified Radiologist. This report was verified electronically.
[2016-06-17] MEDS ORDERED: ZOFR4TAB3 SL (00:51)
[2016-06-17] MEDS ORDERED: NORC5TAB PO (00:51)
--- NOTE | 2016-06-17 16:57 | EKG ---
Date Performed: 06/16/2016 Time Performed: 23:08:43 PTAGE: 61 years EKG: Sinus rhythm POSSIBLE LEFT ATRIAL ENLARGEMENT LOW QRS VOLTAGE IN PRECORDIAL LEADS BORDERLINE ECG PREVIOUS TRACING : 05/17/2016 20.45 Compared to previous tracing, the patient is no longer tach ycardic. DOCTOR: Nellie De La Torre Interpretating Date/Time 06/17/2016 16:56:16
== END 2016-06-17 04:00 | disposition home or self-care (01) ==
LOC: NEPC 22:49
DX: R51 Headache (principal); R11.2 Nausea with vomiting, unspecified; H53.8 Other visual disturbances; E11.9 Type 2 diabetes mellitus without complications; I10 Essential (primary) hypertension; B20 Human immunodeficiency virus [HIV] disease; K21.9 Gastro-esophageal reflux disease without esophagitis
CPT/HCPCS: 70450; 80053; 85025; 85610; 85730; 93005; 96374; 96375; 99284; J0780; J1200; J2270; J7030

== ENCOUNTER 2016-08-03 19:11 | Inpatient (IN) | payer OTHER ==
[~2016-08-03] VITALS: Ht 160 cm; Wt 66.4 kg
[2016-08-03] VITALS (8 sets, daily range): BP systolic 93–109; BP diastolic 53–64; PULSE 70–82; RESP 16–25; TEMP 97.8–97.9; O2SAT 93–99
[~2016-08-03 19:11] MED LIST changes: -1-ME1LIQ PO; -ALPR0.5T99 PO; -CHOL50006 PO; -GLIM4TAB PO; -LEVE500 PO; -LEVEMIR SQ; -METO25 PO; +NORC5TAB PO; -OMEP20TA39 PO; -QUET1TAB7 PO; +ZOFR4TAB3 SL; -[UNRECOGNIZED DRUG - OTHER] PO; -[UNRECOGNIZED DRUG - OTHER] PO; -[UNRECOGNIZED DRUG - OTHER] PO
[2016-08-03] MEDS ORDERED: SODIUM CHLOR 0.9% 1000 ML INJ 1,000 ML IV ONE (19:32)
[2016-08-03] MEDS ORDERED: PROT40TA PO (19:34)
[2016-08-03] MEDS ORDERED: METO25TA3 PO (19:34)
[2016-08-03] MEDS ORDERED: VITA500030 CHEW (19:34)
[2016-08-03] MEDS ORDERED: EMPA1TAB3 PO (19:34)
[2016-08-03] MEDS ORDERED: GLIM4TAB PO (19:34)
[2016-08-03] MEDS ORDERED: LEVE500T8 PO (19:34)
[2016-08-03] MEDS ORDERED: QUET5TAB PO (19:34)
[2016-08-03 20:18] LABS: AUTOMATED NEUTROPHIL # 2.4 TH/MM3 (1.8-7.7); BASOPHIL % 0.8 % (0.0-2.0); EOSINOPHIL # 0.1 TH/MM3 (0-0.4); EOSINOPHIL % 1.9 % (0.0-4.0); HEMATOCRIT 40.2 % (35.0-46.0); HEMO FLAGS DIFF FINAL; LYMPH % 51.5 % (9.0-44.0); MEAN CELL VOLUME 101.7 FL (80.0-100.0); MEAN CORPUSCULAR HEMOGLOBIN 34.7 PG (27.0-34.0); MEAN CORPUSCULAR HGB CONC 34.1 % (32.0-36.0); MONO % 5.9 % (0.0-8.0); NEUT % 39.9 % (16.0-70.0); PLATELET COUNT 136 TH/MM3 (150-450); RED BLOOD COUNT 3.96 MIL/MM3 (4.00-5.30); RED CELL DISTRIBUTION WIDTH 14.7 % (11.6-17.2); WHITE BLOOD COUNT 5.9 TH/MM3 (4.0-11.0)
[2016-08-03 20:44] LABS: APTT (PATIENT) 25.9 SEC (24.3-30.1); INTERNATIONAL NORMALIZED RATIO 1.1 RATIO; PROTHROMBIN TIME - PATIENT 12.2 SEC (9.8-11.6)
--- NOTE | 2016-08-03 20:49 | PD ---
HPI Chief Complaint: OD/ Ingestion Time Seen by Provider: 20:43 Travel History International Travel<30 days: No Contact w/Intl Traveler<30days: No Traveled to known affect area: No History of Present Illness HPI 61-year-old female that presents to the ED for evaluation of overdose. Per ambulance report as well as Ramon act patient apparently to 30 pills. Unclear as to what she took as she will not really tell me what she took other than she took 30 pills of whatever she could find. Per patient she did this in attempt to kill herself. She does have a history of depression. Allergies to codeine, and iohexol. Patient was recently was diagnosed with brain bleed and was admitted to the hospital. Patient apparently try to do this to an her life secondary to not want to be a bother to her daughter anymore. She denies any other medical problems. No injuries. Patient does tell me that she did drink some alcohol. Patient continued to me what she is specifically took. Patient was Ramon acted by police. Patient was found by caregiver. Patient did come with medication bottles but unclear again to what she actually took. Some of the bottles do appear to be more use than others. On my exam patient is somewhat somnolent but is arousable and answers questions approperly. PFSH Past Medical History Arthritis: No Autoimmune Disease: Yes Blood Disorders: No Anxiety: Yes Cancer: No Cardiovascular Problems: No Diabetes: Yes Patient Takes Glucophage: No Diminished Hearing: No Endocrine: Yes Gastrointestinal Disorders: Yes (ACID REFLUX ) Glaucoma: No Genitourinary: No Hepatitis: Yes (HEPATITIS C ) Hiatal Hernia: No Hypertension: Yes Immune Disorder: No Implanted Vascular Access Dvce: No Musculoskeletal: No Neurologic: Yes (NEUROPATHY) Psychiatric: Yes (ANXIETY; SITUATIONAL DEPRESSION ) Reproductive: No Respiratory: No Thyroid Disease: No PNEUMOCCOCAL Vaccine (Year): 2 ?: Not Menopausal: Yes Tubal Ligation: Yes Past Surgical History Abdominal Surgery: No AICD: No Body Medical Devices: NONE Cardiac Surgery: No Ear Surgery: No Endocrine Surgery: No Eye Surgery: Yes (LEFT/RIGHT CATARACT WITH LENS, UPPER LID BLEPHROPLASTY) Genitourinary Surgery: No Gynecologic Surgery: Yes (TUBAL LIGATION) Joint Replacement: No Neurologic Surgery: Yes (SUBDURAL BLEED WITH SX) Oral Surgery: Yes (T & A) Pacemaker: No Thoracic Surgery: No Tonsillectomy: Yes Other Surgery: Yes Social History Alcohol Use: Yes Tobacco Use: No Substance Use: No Allergies-Medications (Allergen,Severity, Reaction): Coded Allergies: Iohexol (OMNIPAQUE) (Verified Allergy, Severe, Hives, 08/03/16) date of allergy 06/20/11: facial hives and itching Codeine (Verified Adverse Reaction, Severe, NAUSEA, 08/03/16) Reported Meds & Prescriptions Reported Meds & Active Scripts Active Lyrica (Pregabalin) 25 Mg Cap 50 Mg PO BID Reported Vitamin D3 (Cholecalciferol) 5,000 Unit Chew 5,000 Units CHEW DAILY Glimepiride 4 Mg Tab 4 Mg PO DAILY Take with breakfast or first main meal Quetiapine (Quetiapine Fumarate) 50 Mg Tab 50 Mg PO BID Protonix (Pantoprazole Sodium) 40 Mg Tab 40 Mg PO MWF Levetiracetam 500 Mg Tab 500 Mg PO BID Metoprolol Tartrate 25 Mg Tab 25 Mg PO BID Valacyclovir (Valacyclovir HCl) 500 Mg Tab 500 Mg PO DAILY Amlodipine (Amlodipine Besylate) 10 Mg Tab 10 Mg PO DAILY Propranolol (Propranolol HCl) 10 Mg Tab 10 Mg PO Q12HR Sertraline (Sertraline HCl) 25 Mg Tab 25 Mg PO DAILY Gabapentin 300 Mg Cap 300 Mg PO HS Jardiance (Empagliflozin) 25 Mg Tab 25 Mg PO DAILY Review of Systems Except as stated in HPI: all other systems reviewed are Neg Physical Exam Narrative GENERAL: SKIN: Warm and dry. HEAD: Atraumatic. Normocephalic. EYES: Pupils equal and round. No scleral icterus. No injection or drainage. ENT: No nasal bleeding or discharge. Mucous membranes pink and moist. Tongue is midline. No uvula deviation. NECK: Trachea midline. No JVD. CARDIOVASCULAR: Regular rate and rhythm. No murmurs, S3, S4. RESPIRATORY: No accessory muscle use. Clear to auscultation. Breath sounds equal bilaterally. GASTROINTESTINAL: Abdomen soft, non-tender, nondistended. Hepatic and splenic margins not palpable. MUSCULOSKELETAL: Extremities without clubbing, cyanosis, or edema. No obvious deformities. Full range of motion of the upper and lower extremities bilaterally. 2+ pulses bilaterally. NEUROLOGICAL: Awake and alert. No obvious cranial nerve deficits. Motor grossly within normal limits. Five out of 5 muscle strength in the arms and legs. Normal speech. PSYCHIATRIC: Appropriate mood and affect; insight and judgment normal. Data Data Last Documented VS Vital Signs Date Time Temp Pulse Resp B/P Pulse Ox O2 Delivery O2 Flow Rate FiO2 08/03/16 20:30 82 20 107/62 95 Nasal Cannula 2 08/03/16 19:20 97.8 Orders Electrocardiogram (08/03/16 19:32) Basic Metabolic Panel (Bmp) (08/03/16 19:32) Complete Blood Count With Diff (08/03/16 19:32) Comprehensive Metabolic Panel (08/03/16 19:32) Prothrombin Time / Inr (Pt) (08/03/16 19:32) Act Partial Throm Time (Ptt) (08/03/16 19:32) Urinalysis - C+S If Indicated (08/03/16 19:32) Blood Glucose (08/03/16 19:32) Iv Access Insert/Monitor (08/03/16 19:32) Ecg Monitoring (08/03/16 19:32) Oximetry (08/03/16 19:32) Sodium Chlor 0.9% 1000 Ml Inj (Ns 1000 M (08/03/16 19:32) Call Poison Control (08/03/16 19:32) Drug Screen, Random Urine (08/03/16 19:32) Alcohol (Ethanol) (08/03/16 19:32) Salicylates (Aspirin) (08/03/16 19:32) Tylenol (Acetaminophen) (08/03/16 19:32) Bedside Glucose JEFF.Q1H (08/03/16 19:55) Admit To Inpatient (08/03/16 ) Code Status (08/03/16 21:44) Vital Signs (Adult) Q4H (08/03/16 21:44) Activity Oob With Assistance (08/03/16 21:44) Pharmacy Intake Technician / Telemetry .CONTINUOUS (08/03/16 21:44) Diet 1800 Ada Cons Carb (08/04/16 Breakfast) Sodium Chloride 0.9% Flush (Ns Flush) (08/03/16 21:45) Sodium Chloride 0.9% Flush (Ns Flush) (08/04/16 09:00) Ondansetron Inj (Zofran Inj) (08/03/16 21:45) Magnesium Hydroxide Liq (Milk Of Magnesi (08/03/16 21:45) Basic Metabolic Panel (Bmp) (08/04/16 06:00) Complete Blood Count With Diff (08/04/16 06:00) Chest, Single Ap (08/03/16 21:44) Pt Request For Service (08/03/16 21:44) Scd Bilateral/Knee High JEFF.BID (08/03/16 21:44) Naloxone Inj (Narcan Inj) (08/03/16 21:45) Inpatient Certification (08/03/16 ) Admit To Inpatient (08/03/16 ) Inpatient Certification (08/03/16 ) Insulin Aspart Supplemtl Scale (Novolog (08/04/16 07:00) Consult Psychiatry (08/03/16 ) Amlodipine (Norvasc) (08/04/16 09:00) Cholecalciferol (Vitamin D3) (08/04/16 09:00) Gabapentin (Neurontin) (08/04/16 21:00) Levetiracetam (Keppra) (08/04/16 09:00) Metoprolol Tartrate (Lopressor) (08/04/16 09:00) Pantoprazole (Protonix) (08/04/16 09:00) Pregabalin (Lyrica) (08/04/16 09:00) Propranolol (Inderal) (08/04/16 09:00) Valacyclovir (Valtrex) (08/04/16 09:00) Quetiapine (Seroquel) (08/04/16 09:00) Sertraline (Zoloft) (08/04/16 09:00) Admit Order (Ed Use Only) (08/03/16 21:56) Labs Laboratory Tests Test 08/03/16 08/03/16 19:47 20:40 White Blood Count 5.9 TH/MM3 Red Blood Count 3.96 MIL/MM3 Hemoglobin 13.7 GM/DL Hematocrit 40.2 % Mean Corpuscular Volume 101.7 FL Mean Corpuscular Hemoglobin 34.7 PG Mean Corpuscular Hemoglobin 34.1 % Concent Red Cell Distribution Width 14.7 % Platelet Count 136 TH/MM3 Mean Platelet Volume 10.6 FL Neutrophils (%) (Auto) 39.9 % Lymphocytes (%) (Auto) 51.5 % Monocytes (%) (Auto) 5.9 % Eosinophils (%) (Auto) 1.9 % Basophils (%) (Auto) 0.8 % Neutrophils # (Auto) 2.4 TH/MM3 Lymphocytes # (Auto) 3.0 TH/MM3 Monocytes # (Auto) 0.4 TH/MM3 Eosinophils # (Auto) 0.1 TH/MM3 Basophils # (Auto) 0.0 TH/MM3 CBC Comment DIFF FINAL Differential Comment Prothrombin Time 12.2 SEC Prothromb Time International 1.1 RATIO Ratio Activated Partial 25.9 SEC Thromboplast Time Sodium Level 136 MEQ/L Potassium Level 4.4 MEQ/L Chloride Level 104 MEQ/L Carbon Dioxide Level 24.7 MEQ/L Anion Gap 7 MEQ/L Blood Urea Nitrogen 12 MG/DL Creatinine 0.60 MG/DL Estimat Glomerular Filtration 101 ML/MIN Rate Random Glucose 80 MG/DL Calcium Level 8.1 MG/DL Total Bilirubin 0.3 MG/DL Aspartate Amino Transf 46 U/L (AST/SGOT) Alanine Aminotransferase 33 U/L (ALT/SGPT) Alkaline Phosphatase 77 U/L Total Protein 7.8 GM/DL Albumin 3.3 GM/DL Salicylates Level LESS THAN 1.7 MG/DL Acetaminophen Level LESS THAN 2.0 MCG/ML Ethyl Alcohol Level 130 MG/DL Urine Color COLORLESS Urine Turbidity CLEAR Urine pH 6.0 Urine Specific [place] 1.003 Urine Protein NEG mg/dL Urine Glucose (UA) 1000 mg/dL Urine Ketones NEG mg/dL Urine Occult Blood NEG Urine Nitrite NEG Urine Bilirubin NEG Urine Urobilinogen LESS THAN 2.0 MG/DL Urine Leukocyte Esterase NEG Urine WBC LESS THAN 1 /hpf Urine Squamous Epithelial 2 /hpf Cells Microscopic Urinalysis Comment CULT NOT INDICATED Urine Opiates Screen NEG Urine Barbiturates Screen NEG Urine Amphetamines Screen NEG Urine Benzodiazepines Screen POS Urine Cocaine Screen NEG Urine Cannabinoids Screen NEG MDM Medical Decision Making Medical Screen Exam Complete: Yes Emergency Medical Condition: Yes Medical Record Reviewed: Yes Interpretation(s) CBC & BMP Diagram 08/03/16 19:47 EKG shows sinus rhythm with no sign of acute ischemia or arrhythmia read by me and attending. CMP WNL alcohol in the 100s tox negative Differential Diagnosis Substance overdose versus depression versus suicidal ideation versus suicidal attempt versus depression Narrative Course 61-year-old female that presents to the ED for evaluation of overdose. Patient was properly examined and was found to have signs and symptoms consistent appears to be overdose. Unclear etiology as to what she actually took. At this time I recommend labs and imaging and poison control consult. Labs and imaging were essentially unremarkable here. Poison control recommends monitoring blood sugar for at least the next 24 hours at least every hour as patient could have overdosed on glimepiride. I also wants EKGs every hour to make sure the patient doesn't have any acute changes secondary to possible overdose from propanolol and blood pressure medications. Patient can be medically cleared if in 24 hours all is well. My attending Dr. Ho evaluated the patient and recommends admission to medicine. [facility] physicians were contacted. Dr Gusman agrees to admission, admit to ICU but does not want math and science instructor consult per Dr Gusman. Diagnosis Primary Impression: Overdose Qualified Code: T50.902A - Overdose, intentional self-harm, initial encounter Additional Impression: Depression Qualified Code: F33.2 - Severe episode of recurrent major depressive disorder , without psychotic features Admitting Information Admitting Physician Requests: Admit Issa Weber Aug 03, 2016 20:49
[2016-08-03 21:00] LABS: BLOOD, URINE NEG (NEG); COMMENT (UR) CULT NOT INDICATED; CULTURE IF INDICATED CULT NOT INDICATED; GLUCOSE,URINE 1000 mg/dL (NEG); KETONE, URINE NEG (NEG); NITRITE,URINE NEG (NEG); SQUAMOUS EPITHELIAL CELL URINE 2 /hpf (0-5); URINE COLOR COLORLESS (YELLW/STRAW)
[2016-08-03 21:15] LABS: ALKALINE PHOSPHATASE 77 U/L (45-117); ALT (GPT) 33 U/L (10-53); ANION GAP 7 MEQ/L (5-15); AST (GOT) 46 U/L (15-37); BICARBONATE 24.7 MEQ/L (21.0-32.0); BLOOD UREA NITROGEN 12 MG/DL (7-18); CHLORIDE 104 MEQ/L (98-107); GLOMERULAR FILTRATION RATE 101 ML/MIN (>89); POTASSIUM 4.4 MEQ/L (3.5-5.1); SODIUM (NA) 136 MEQ/L (136-145); TOTAL BILIRUBIN ADULT 0.3 MG/DL (0.2-1.0)
[2016-08-03 21:17] LABS: ACETAMINOPHEN LESS THAN 2.0 MCG/ML (10.0-30.0)
[2016-08-03] MEDS ORDERED: MAGNESIUM HYDROXIDE SUSP 30 ML CUP PO PRN (21:45)
[2016-08-03] MEDS ORDERED: NALOXONE HCL 0.4 MG/ML AMP IV PRN (21:45)
[2016-08-03] MEDS ORDERED: SODIUM CHLORIDE 0.9% FLUSH 10 ML FLUSH IV FLUSH PRN (21:45)
[2016-08-03] MEDS ORDERED: ONDANSETRON HCL 4 MG/2 ML VIAL IVP PRN (21:45)
[2016-08-03 21:53] LABS: AMPHETAMINE, URINE NEG (NEG); BARBITURATES, URINE NEG (NEG); COCAINE, URINE NEG (NEG)
--- NOTE | 2016-08-03 22:41 | RADRPT ---
EXAM DATE/TIME: 08/03/2016 22:09 [facility] COMPARISON: CHEST SINGLE AP, May 17, 2016, 20:00. INDICATIONS : Evaluate lung status. Possible OD. MEDICAL HISTORY : Unobtainable. SURGICAL HISTORY : Unobtainable. ENCOUNTER: Initial ACUITY: 1 day PAIN SCORE: Non-responsive. LOCATION: Bilateral chest FINDINGS: Small lung volumes with trace bibasilar atelectasis. No large or confluent consolidation. No percepti ble effusion. No pneumothorax. Heart size stable com within normal limits. CONCLUSION: Very mild bibasilar atelectasis. Sai Gandhi MD on August 03, 2016 at 22:40 Board Certified Radiologist. This report was verified electronically.
[2016-08-03] MEDS ORDERED: CHLORHEXIDINE GLUCONATE 2 % 1 PACK (2 CLOTHS)(extra cloths) TOPICAL PRN (23:45)
[2016-08-04] VITALS (12 sets, daily range): BP systolic 86–104; BP diastolic 50–64; PULSE 68–90; RESP 16–22; TEMP 97.8–98.9; O2SAT 95–100
[2016-08-04] MEDS: CHLORHEXIDINE GLUCONATE 2 % 1 PACK (2 CLOTHS)(taper/protocol) TOPICAL SCH (04:00)
[2016-08-04 04:57] LABS: AUTOMATED NEUTROPHIL # 1.2 TH/MM3 (1.8-7.7); BASOPHIL % 0.5 % (0.0-2.0); EOSINOPHIL # 0.1 TH/MM3 (0-0.4); EOSINOPHIL % 3.1 % (0.0-4.0); HEMATOCRIT 38.6 % (35.0-46.0); LYMPH % 62.3 % (9.0-44.0); LYMPHOCYTE # 2.8 TH/MM3 (1.0-4.8); MEAN CELL VOLUME 101.9 FL (80.0-100.0); MEAN CORPUSCULAR HEMOGLOBIN 34.7 PG (27.0-34.0); MONO % 7.1 % (0.0-8.0); PLATELET COUNT 131 TH/MM3 (150-450); RED BLOOD COUNT 3.78 MIL/MM3 (4.00-5.30); RED CELL DISTRIBUTION WIDTH 14.6 % (11.6-17.2); WHITE BLOOD COUNT 4.5 TH/MM3 (4.0-11.0)
[2016-08-04 05:14] LABS: BICARBONATE 26.7 MEQ/L (21.0-32.0); POTASSIUM 3.7 MEQ/L (3.5-5.1)
[2016-08-04 05:20] LABS: HEMO FLAGS AUTO DIFF
[2016-08-04] MEDS: INSULIN ASPART SUPPLEMENTAL SCALE SQ SCH ×4 (06:28→20:43)
[2016-08-04 06:46] LABS: EOSINOPHILS 1 % (0-4); NEUTROPHIL # MANUAL DIFF 1.3 TH/MM3 (1.8-7.7); POLYS (SEG NEUTROPHILS) 29 % (16-70); WBC DIFF SAMPLE 100
[2016-08-04 06:47] LABS: PLATELET ESTIMATE SMEAR LOW (NORMAL); PLATELET MORPHOLOGY NORMAL (NORMAL); SCAN/DIFF FINAL DIFF MANUAL
[2016-08-04] MEDS: levETIRAcetam 500 MG TAB PO SCH ×2 (08:29→20:41)
[2016-08-04] MEDS: PREGABALIN 25 MG CAP PO SCH ×2 (08:29→20:42)
[2016-08-04] MEDS: PANTOPRAZOLE SOD 40 MG DELAYED RELEASE TAB PO SCH (08:30)
[2016-08-04] MEDS: valACYclovir HCL 500 MG TAB PO SCH (08:30)
[2016-08-04] MEDS: QUEtiapine FUMARATE 100 MG TAB PO SCH ×2 (08:30→20:42)
[2016-08-04] MEDS: CHOLECALCIFEROL (VIT D3) 5000 UNIT CAP PO SCH (08:31)
[2016-08-04] MEDS: SERTRALINE HCL 50 MG TAB PO SCH (08:32)
[2016-08-04] MEDS: PROPRANOLOL HCL 10 MG TAB PO SCH ×2 (08:32→21:00)
[2016-08-04] MEDS: SODIUM CHLORIDE 0.9% FLUSH 10 ML FLUSH IV FLUSH SCH ×2 (08:32→20:42)
[2016-08-04] MEDS: METOPROLOL TARTRATE 25 MG TAB PO SCH ×2 (08:33→21:00)
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
[2016-08-04] MEDS: 1/2 NS + KCL 20 MEQ INJ 1,000 ML IV SCH ×3 (11:08→18:10)
--- NOTE | 2016-08-04 17:02 | MB ---
cc: BROOKE MARQUEZ M.D., DR. DATE OF CONSULTATION: 08/04/2016 REASON FOR CONSULTATION: This 61-year-old white female was brought to the emergency room this hospital under the Ramon ACT initiated by the police because of overdose. She reportedly took 30 pills of unknown medications. The psychiatric consultation is requested by Dr. Gusman for evaluation assistance in the management of the same. Prior to evaluation of case I reviewed with him. Significant available lab reports as follows. CBC with differential shows MCV 101.9, platelet count 131. AST slightly elevated 46. Serum calcium low at 8.2. Urine drug screen positive for benzodiazepines. Acetaminophen and salicylates levels normal. Blood alcohol level 130. Routine urinalysis unremarkable. Nasal screen positive for MRSA, HIV AND H2 antibody pending. CHEST X-RAY Positive for bibasilar atelectasis. MEDICATIONS current medications are 1. Neurontin. 2. Vitamin D. 3. Keppra. 4. Lopressor. 5. Protonix. 6. Lyrica 7. Inderal. 8. Valtrex 9. Seroquel 30 mg b.i.d. 10. Zoloft 25 mg daily. CONSULT: Miss Alvarez was admitted here in April of this year due to subdural hematoma. During that hospitalization she was seen in consultation by Dr. Ramos, He did not feel any psychiatric hospitalization was indicated. She was discharged on Zoloft. [place] [facility] [place] Since admission she has not exhibited any aggressive self-destructive behavior nor has she made any threats of harm to self or others. At the time of this evaluation Miss Alvarez was pleasant and cooperative. When asked about her understanding of the reason for this hospitalization. Initially she responded "I do not know , I don't remember, I do not even remember who brought me here." However as the session progressed she acknowledged having difficulties with her caregiver who according to her has been stealing her pain medications and Xanax. She mentioned since the head injury her family members stayed with her. Her family members, i.e. her brothers and daughter stayed with her but about a month or so ago they arranged a caregiver for her. The caregivers 18-year-old son also moved in with them. Since then she has been having ongoing difficulties. She acknowledged taking "four Xanax and some other night medicine prescribed by Dr. Lebron" and then told the caregiver what she had done. The caregivers and called the police and she was brought in here. She repeatedly stated that she was not trying to kill herself and that her overdose was out of anger" to get out of the situation." She stated that she indicated that she had even offered her caregiver of 1000 dollars to move out but she would not. She stated that she has had a history of alcohol abuse and on the day of admission she took "a glass of vodka without my caregiver knowing about it." When asked as to how she felt about her overdose she responded "I feel so bad, I feel so stupid. I would never tried to kill myself because I have 7 months old grandson I have my daughter it will would devastate them." She denied any previous suicide attempts. When further explored she indicated that she had felt depressed off and on over the past review months. She denied that she has been experiencing initial insomnia and her appetite had declined. She stated she had lost about "5-10 pounds" in the past 4 months. She acknowledged her memory and concentration had declined since the subdural him from months. 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 On further questioning she denied any history suggestive bipolar affective disorder. She was somewhat the patient attempted to explore the extent of her alcohol use. She was vague and somewhat reluctant. She denied ever experiencing delirium tremors or ever receiving any treatment for alcohol / drug abuse. Specifically she denied abusing any illicit substances. When inquired about her hannah HIV she indicated that she was in [facility] several months ago and a chicken scratched her face bad resulting in an infection, and three months later she was diagnosed with HIV. She is currently under Dr. Torrez treatment for this. PAST PSYCHIATRIC HISTORY She mentioned, "few years ago" she was evaluated by psychiatrist at [facility] whose name she could not recall. She was prescribed Zoloft which she did not take for any significant period of time. She denied any psychiatric hospitalization that she has not had any psychiatric intervention since then. Specifically she denied any previous psychiatric hospitalization. She denied enrollment in any formal substance abuse program. PAST MEDICAL HISTORY She has history of diabetes. Gastroesophageal reflux disease Hepatitis C Hypertension Neuropathy Status post subdural hematoma. PAST SURGICAL HISTORY: Eye surgery, Tubal ligation. Possible a tonsillectomy. ALLERGIES OMNIPAQUE CODEINE FAMILY HISTORY Her parents are . She has two brother and one sister. She denied any family history of psychiatric illness or substance abuse. PERSONAL AND SOCIAL HISTORY She worked in [place] and after finishing high school attended some college. She served in the [email or web address] for 4 years. 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 She was twice. Her first marriage ended in divorce after 4 months. She has a daughter who lives in [place]. She did not have any children from a second marriage. She started drinking around the age of 19 and at one point drank heavily though she would not give the exact information in this regard. Her last drink was on the day of admission, when she had "a glass of Vodka." She denied any illicit substance abuse. Specifically she denied intravenous drug abuse. Intravenous drug use. She denied any history of physical or sexual trauma. As mentioned she is currently living in her apartment in her home with the help of caregiver. CLINICAL OBSERVATION/MENTAL STATUS EVALUATION: At the time of this evaluation Ms. Alvarez presented as a reasonably well-groomed white female who looked her stated age. As mentioned initially she was vague and somewhat reluctant to volunteer information but as the session progressed she began to open up. Her responses to questions were relevant and logical. No overt anger or hostility was noticed. No tremors were noticed. Her speech was coherent and appropriate. Her affect was pleasant, she showed full range of emotions i.e. smiled and laughed frequently. Subjectively she described her mood as "I have been feeling fine." There was no evidence of any thought disorder. No arturo delusions, auditory, visual hallucinations were noticed or reported. She denied active suicidal or homicidal ideations or intent at this time. As mentioned she expressed remorse at her recent suicidal behavior "I was not trying to kill myself. I overdosed because I was mad I wanted to get out of this situation. I will never kill myself because it would demonstrate my grandson and my daughter." She denied any previous suicide attempts. Cognitive functions she was alert, oriented to place, person and situation. She gave the date as "August 04, 2016." Memory immediate she could find a for 4 days backward. Recent she could recall 2/3 objects after 10 minutes. Remote she could recall presidents up to President Mamadou. Her attention and concentration was impaired she could not do serial sevens beyond 93. Her fund of information was adequate for example she knew the capital of [facility] as "[place]." Her judgment and insight was felt to be fair. DIAGNOSTIC IMPRESSION 1. Dysthymic disorder. 2. Chronic alcohol abuse. 3. Acute alcohol intoxication. 4. Status post bur hole secondary to subdural hematoma 2016. 5. White's esophagus 6. Gastroesophageal reflux disease. 7. Hepatitis C. 8. Diabetes mellitus. 9. Peripheral neuropathy. 10. Gastroparesis. 11. Hypertension. 12. Polyclonal gammopathy. 13. Restless leg syndrome 14. Vertigo. FORMULATION/RECOMMENDATIONS Based on this evaluation the background information available to me at this time, Ms. Alvarez seems to have experienced bouts of depression for which she briefly received treatment through [facility] and was put on Zoloft. However, she has not been very compliant with it. In addition she is exhibiting cognitive deficits likely due to combination of chronic alcohol abuse and multiple medical issues, especially the subdural hematoma. Alcohol abuse is another is significant issue contributing to her current condition. To alleviate her depression, she needs to continue on the Zoloft, but the dose will need to be titrated up. She is not exhibiting any alcohol withdrawal symptoms at this time. However, she needs to be watched for this. She is denying active suicidal or homicidal ideations or intent at this time. She is quite remorseful of her recent behavior which she acknowledged was impulsive and out of anger. In regards to placement she needs to be in assisted living facility. However, she is not supportive of it. According to her daughter had offered to move in with her but she is not willing to do so because she does not want to be a burden on her. Considering this, it appears that we need to get the family involved, hoping that she might change her mind. If not then the only other option would be for her to return home and have a different caregiver who she might be able to get along with. The social sciences chair need to assist us in this regard. I had offered her transfer to psychiatric unit. However, she is not supportive of it. I will discuss all this again with her tomorrow and proceed accordingly. Thank you Dr. Gusman for allowing me to participate in the care of this patient. I will follow her with you during this admission. MD Jovita Mensah /2:03 PM /3:27 PM
[2016-08-04] MEDS: GABAPENTIN 300 MG CAP PO SCH (20:41)
--- NOTE | 2016-08-04 21:09 | EKG ---
Date Performed: 08/03/2016 Time Performed: 21:07:55 PTAGE: 61 years EKG: Sinus rhythm NORMAL ECG PREVIOUS TRACING : 08/03/2016 19.44 Compared to prior tracing no significant change DOCTOR: Marin Morrissey Interpretating Date/Time 08/04/2016 21:06:25
--- NOTE | 2016-08-04 21:09 | EKG ---
Date Performed: 08/03/2016 Time Performed: 22:29:43 PTAGE: 61 years EKG: Sinus rhythm NORMAL ECG PREVIOUS TRACING : 08/03/2016 19.44 Compared to prior tracing no significant change DOCTOR: Marin Morrissey Interpretating Date/Time 08/04/2016 21:06:39
--- NOTE | 2016-08-04 21:09 | EKG ---
Date Performed: 08/03/2016 Time Performed: 19:44:45 PTAGE: 61 years EKG: Sinus rhythm NORMAL ECG PREVIOUS TRACING : 06/16/2016 23.08 Compared to prior tracing no significant change DOCTOR: Marin Morrissey Interpretating Date/Time 08/04/2016 21:06:16
[2016-08-05] VITALS (11 sets, daily range): BP systolic 91–139; BP diastolic 52–79; PULSE 68–83; RESP 16–20; TEMP 97.8–98.2; O2SAT 93–97
[2016-08-05] MEDS: 1/2 NS + KCL 20 MEQ INJ 1,000 ML IV SCH ×4 (01:32→12:33)
[2016-08-05] MEDS: CHLORHEXIDINE GLUCONATE 2 % 1 PACK (2 CLOTHS)(taper/protocol) TOPICAL SCH (04:00)
[2016-08-05 06:19] LABS: AUTOMATED NEUTROPHIL # 1.1 TH/MM3 (1.8-7.7); BASOPHIL % 0.4 % (0.0-2.0); EOSINOPHIL # 0.1 TH/MM3 (0-0.4); EOSINOPHIL % 3.2 % (0.0-4.0); HEMATOCRIT 40.1 % (35.0-46.0); LYMPH % 64.4 % (9.0-44.0); LYMPHOCYTE # 2.8 TH/MM3 (1.0-4.8); MEAN CELL VOLUME 102.3 FL (80.0-100.0); MEAN CORPUSCULAR HEMOGLOBIN 33.4 PG (27.0-34.0); MEAN CORPUSCULAR HGB CONC 32.6 % (32.0-36.0); MONO % 7.3 % (0.0-8.0); NEUT % 24.7 % (16.0-70.0); PLATELET COUNT 108 TH/MM3 (150-450); RED BLOOD COUNT 3.92 MIL/MM3 (4.00-5.30); RED CELL DISTRIBUTION WIDTH 14.6 % (11.6-17.2); WHITE BLOOD COUNT 4.3 TH/MM3 (4.0-11.0)
[2016-08-05 06:22] LABS: HEMO FLAGS AUTO DIFF
[2016-08-05 06:50] LABS: MAGNESIUM 2.2 MG/DL (1.5-2.5); POTASSIUM 3.7 MEQ/L (3.5-5.1)
[2016-08-05 06:53] LABS: PLATELET ESTIMATE SMEAR LOW (NORMAL); PLATELET MORPHOLOGY NORMAL (NORMAL); SCAN/DIFF AUTO DIFF CONFIRMED
[2016-08-05] MEDS: INSULIN ASPART SUPPLEMENTAL SCALE SQ SCH ×4 (06:56→20:32)
[2016-08-05] MEDS: PROPRANOLOL HCL 10 MG TAB PO SCH ×2 (09:00→20:31)
[2016-08-05] MEDS: valACYclovir HCL 500 MG TAB PO SCH (09:00)
[2016-08-05] MEDS: QUEtiapine FUMARATE 100 MG TAB PO SCH ×2 (09:00→20:32)
[2016-08-05] MEDS: SODIUM CHLORIDE 0.9% FLUSH 10 ML FLUSH IV FLUSH SCH ×2 (09:00→20:35)
[2016-08-05] MEDS: CHOLECALCIFEROL (VIT D3) 5000 UNIT CAP PO SCH (09:21)
[2016-08-05] MEDS: PREGABALIN 25 MG CAP PO SCH ×2 (09:21→20:36)
[2016-08-05] MEDS: PANTOPRAZOLE SOD 40 MG DELAYED RELEASE TAB PO SCH (09:21)
[2016-08-05] MEDS: METOPROLOL TARTRATE 25 MG TAB PO SCH ×2 (09:22→20:31)
[2016-08-05] MEDS: levETIRAcetam 500 MG TAB PO SCH ×2 (09:22→20:31)
[2016-08-05] MEDS: SERTRALINE HCL 50 MG TAB PO SCH (09:22)
[2016-08-05 12:27] LABS: FREE T4 0.92 NG/DL (0.76-1.46)
--- NOTE | 2016-08-05 17:52 | HHI.PR ---
Subjective Remarks No new complaints. Objective Vitals Vital Signs Date Time Temp Pulse Resp B/P Pulse Ox O2 Delivery O2 Flow Rate FiO2 08/05/16 16:00 72 08/05/16 16:00 98.0 69 18 99/62 97 08/05/16 14:00 75 08/05/16 12:00 72 08/05/16 12:00 97.9 68 17 103/64 96 08/05/16 10:13 20 08/05/16 10:00 75 08/05/16 08:00 98.0 72 20 113/63 96 08/05/16 08:00 72 08/05/16 06:00 71 08/05/16 04:00 71 08/05/16 04:00 98.2 71 16 109/67 93 08/05/16 02:00 70 08/05/16 00:00 76 08/05/16 00:00 97.8 76 18 91/52 93 08/04/16 22:00 80 08/04/16 20:00 83 08/04/16 20:00 98.4 83 22 97/64 97 08/04/16 18:00 74 08/04/16 08/04/16 08/05/16 15:00 23:00 07:00 Intake Total 720 ml 2372 ml 1176 ml Output Total 1200 ml 1200 ml 1200 ml Balance -480 ml 1172 ml -24 ml Intake Oral 720 ml 480 ml 240 ml IV Total 1892 ml 936 ml Output Urine Total 1200 ml 1200 ml 1200 ml # Bowel Movements 0 Result Diagram: 08/05/16 0515 08/05/16 0515 Imaging Last Impressions Chest X-Ray 08/03/162143 Signed Impressions: Service Date/Time: Wednesday, August 03, 2016 22:09 - CONCLUSION: Very mild bibasilar atelectasis. Sai Gandhi MD Objective Remarks GENERAL: This is a well-nourished, well-developed patient, in no apparent distress. CARDIOVASCULAR: Regular rate and rhythm without murmurs, gallops, or rubs. RESPIRATORY: Clear to auscultation. Breath sounds equal bilaterally. No wheezes , rales, or rhonchi. GASTROINTESTINAL: Abdomen soft, non-tender, nondistended. Normal active bowel sounds MUSCULOSKELETAL: Extremities without clubbing, cyanosis, or edema. NEURO: Alert & Oriented x4 to person, place, time, situation. Moves all ext x4 A/P Problem List: (1) Suicide attempt Status: Acute Plan: - comgmt with Psychiatry - Pt admitted under Ramon Act for suicide attempt but taking pills (unknown which pills were taken) and mixing with alcohol. - Ethyl alcohol level was 130 at admission - Tox scan was positive for Benzos - Salicylate and Acetaminophen levels were negative. - Her BP continues to trend low today, but improved from yesterday - IVFs - Pt seen by Psychiatry & Ramon Act lifted - Pt now telling nursing staff that she chose to lock herself in her room. - anticipate d/c tomorrow either to [facility] program or SNF (2) Depression Status: Chronic Plan: - zoloft per psychiatry (3) Subdural hematoma Status: Resolved Plan: - Pt previously was admitted in 04/2016 for falls at home and was found to have a SDH - Pt s/p Left frontal [place] hole for evacuation of SDH on 05/17/[address] Clay (4) DM (diabetes mellitus) Status: Chronic Plan: - NovoLog SSI - Accu checks - Pt is also on Levemir at home which may need to be resumed as pts oral intake increases (5) HTN (hypertension) Status: Chronic Plan: - Pts BP has been low today - Hold Norvasc - Parameters placed on Metoprolol and Propranolol (6) Anxiety Status: Chronic Plan: - See above. (7) Hepatitis C Status: Chronic Plan: - Chronic Hepatitis C, Genotype 1, pt had been on treatment with Ribavirin and Viekira up until her fall/SDH in 04/2016 - Pt has been off treatment for this since her fall in 04/2016 - Pt follows with Dr. Torrez for this. - During last admission pt had documentation reporting a hx of HIV. Pt denies this and there was no report of this in outpt records. We will check HIV testing to confirm this. 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
[2016-08-05] MEDS: GABAPENTIN 300 MG CAP PO SCH (20:31)
[2016-08-06 00:29] VITALS: BP 108/68; PULSE 79; RESP 20; TEMP 98.8; O2SAT 98
[2016-08-06] MEDS: CHLORHEXIDINE GLUCONATE 2 % 1 PACK (2 CLOTHS)(taper/protocol) TOPICAL SCH (04:00)
[2016-08-06 04:14] VITALS: BP 98/73; PULSE 77; RESP 22; TEMP 97.1; O2SAT 94
[2016-08-06] MEDS: INSULIN ASPART SUPPLEMENTAL SCALE SQ SCH ×3 (06:03→16:00)
[2016-08-06 08:00] VITALS: BP 125/79; PULSE 75; RESP 18; TEMP 97.7; O2SAT 96
[2016-08-06] MEDS ORDERED: SERTRALINE HCL 50 MG TAB PO SCH (09:00)
[2016-08-06] MEDS: levETIRAcetam 500 MG TAB PO SCH (09:43)
[2016-08-06] MEDS: PANTOPRAZOLE SOD 40 MG DELAYED RELEASE TAB PO SCH (09:44)
[2016-08-06] MEDS: valACYclovir HCL 500 MG TAB PO SCH (09:44)
[2016-08-06] MEDS: CHOLECALCIFEROL (VIT D3) 5000 UNIT CAP PO SCH (09:44)
[2016-08-06] MEDS: METOPROLOL TARTRATE 25 MG TAB PO SCH (09:44)
[2016-08-06] MEDS: PROPRANOLOL HCL 10 MG TAB PO SCH (09:44)
[2016-08-06] MEDS: QUEtiapine FUMARATE 100 MG TAB PO SCH (09:44)
[2016-08-06] MEDS: SODIUM CHLORIDE 0.9% FLUSH 10 ML FLUSH IV FLUSH SCH (09:45)
[2016-08-06] MEDS: PREGABALIN 25 MG CAP PO SCH (10:02)
[2016-08-06] MEDS: 1/2 NS + KCL 20 MEQ INJ 1,000 ML IV SCH (11:00)
[2016-08-06 12:00] VITALS: BP 120/80; PULSE 75; RESP 18; TEMP 96.5; O2SAT 98
[2016-08-06 16:00] VITALS: BP 124/76; PULSE 74; RESP 18; TEMP 98.1; O2SAT 94
--- NOTE | 2016-08-06 16:24 | HHI.FF ---
Face to Face Verification Diagnosis: (1) DM (diabetes mellitus) (2) Hepatitis C (3) HTN (hypertension) (4) Suicide attempt (5) Depression (6) Anxiety (7) Overdose Home Health Nursing Order: Medical education Signs/symptoms of disease process Medication education-adverse effect Nursing assessment with vital signs I have seen patient Ángel Alvarez on 08/06/16. My clinical findings support the need for the requested home health care services because: Med compliance is questionable Limited ability to care for self Need for psychosocial assistance I certify that my clinical findings support that this patient is homebound because: Impaired cognitive ability/safety Unsafe to leave home unassisted Need for psychosocial assistance Unable to use public transportation Gavin Gusman DO Aug 06, 2016 16:24
--- NOTE | 2016-08-06 16:28 | HHI.DCPOC ---
Discharge Care Plan Diagnosis: (1) Suicide attempt (2) Depression (3) HTN (hypertension) Goals to Promote Your Health * To prevent worsening of your condition and complications * To maintain your health at the optimal level Directions to Meet Your Goals Take your medications as prescribed Follow your dietary instruction Follow activity as directed Keep your appointments as scheduled Take your immunizations and boosters as scheduled If your symptoms worsen call your PCP, if no PCP go to Urgent Care Center or Emergency Room Smoking is Dangerous to Your Health. Avoid second hand smoke Call the 24-hour hour crisis hotline for domestic abuse at Gavin Gusman DO Aug 06, 2016 16:28
--- NOTE | 2016-08-06 16:35 | HHI.DS ---
Discharge Summary Admission Date Aug 03, 2016 at 21:58 Discharge Date: Aug 06, 2016 Admitting Diagnosis drug overdose, suicidal attempt (1) Suicide attempt Diagnosis: Principal (2) Depression Diagnosis: Principal (3) Subdural hematoma Diagnosis: Secondary (4) DM (diabetes mellitus) Diagnosis: Secondary (5) HTN (hypertension) Diagnosis: Secondary (6) Anxiety Diagnosis: Secondary (7) Hepatitis C Diagnosis: Secondary Consultants Dr. Burton Dang, Psychiatry Brief History Ms. Alvarez is a 61 y/o WF with hx of recent falls and SDH in 04/2016 s/p left frontal [place] hole for evacuation of SDH on 05/17/[address] Clay, anxiety, depression, and chronic Hepatitis C, Genotype 1. Pt had been on treatment with Ribavirin and Viekira up until her fall/SDH in 04/2016. She was brought to the ED at [facility] [place] on 08/03/16 under Ramon Act for drug overdose/suicide attempt. The patient apparently took 30 pills but its unclear what it was that she took. Per patient she did this in attempt to kill herself. She reports frustration with her living situation. She states that she has a woman who is living in her house who is supposed to be her caregiver but expresses frustration with that situation and states that she feels like the behavioral health care coordinator and her son who is living there may be stealing her medications and that she is typically locked in her room. She felt somewhat hopeless and this prompted her attempted suicide yesterday. She does have a history of depression. Patient does tell me that she did drink some alcohol yesterday as well. Patient was found by caregiver. Patient did come with medication bottles but unclear again to what she actually took. CBC/BMP: 08/05/16 0515 08/05/16 0515 Significant Findings Laboratory Tests Test 08/03/16 08/03/16 08/04/16 08/05/16 19:47 20:40 03:38 05:15 Red Blood Count 3.96 MIL/MM3 3.78 MIL/MM3 3.92 MIL/MM3 (4.00-5.30) (4.00-5.30) (4.00-5.30) Mean Corpuscular Volume 101.7 FL 101.9 FL 102.3 FL (80.0-100.0) (80.0-100.0) (80.0-100.0) Mean Corpuscular Hemoglobin 34.7 PG 34.7 PG (27.0-34.0) (27.0-34.0) Platelet Count 136 TH/MM3 131 TH/MM3 108 TH/MM3 (150-450) (150-450) (150-450) Lymphocytes (%) (Auto) 51.5 % 62.3 % 64.4 % (9.0-44.0) (9.0-44.0) (9.0-44.0) Prothrombin Time 12.2 SEC (9.8-11.6) Calcium Level 8.1 MG/DL 8.2 MG/DL (8.5-10.1) (8.5-10.1) Aspartate Amino Transf 46 U/L (15-37) (AST/SGOT) Albumin 3.3 GM/DL (3.4-5.0) Salicylates Level LESS THAN 1.7 MG/DL (2.8-20.0) Acetaminophen Level LESS THAN 2.0 MCG/ML (10.0-30.0) Ethyl Alcohol Level 130 MG/DL (0-5) Urine Glucose (UA) 1000 mg/dL (NEG) Urine Benzodiazepines Screen POS (NEG) Neutrophils # (Auto) 1.2 TH/MM3 1.1 TH/MM3 (1.8-7.7) (1.8-7.7) Lymphocytes % 67 % (9-44) Neutrophils # (Manual) 1.3 TH/MM3 (1.8-7.7) Platelet Estimate LOW (NORMAL) LOW (NORMAL) Chloride Level 108 MEQ/L (98-107) Estimat Glomerular Filtration 86 ML/MIN (>89) Rate Random Glucose 137 MG/DL (74-106) Imaging Last Impressions Chest X-Ray 08/03/16 7218 Signed Impressions: Service Date/Time: Wednesday, August 03, 2016 22:09 - CONCLUSION: Very mild bibasilar atelectasis. Sai Gandhi MD PE at Discharge GENERAL: This is a well-nourished, well-developed patient, in no apparent distress. CARDIOVASCULAR: Regular rate and rhythm without murmurs, gallops, or rubs. RESPIRATORY: Clear to auscultation. Breath sounds equal bilaterally. No wheezes , rales, or rhonchi. GASTROINTESTINAL: Abdomen soft, non-tender, nondistended. Normal active bowel sounds MUSCULOSKELETAL: Extremities without clubbing, cyanosis, or edema. NEURO: Alert & Oriented x4 to person, place, time, situation. Moves all ext x4 Hospital Course (1) Suicide attempt Status: Acute Plan: - comgmt with Psychiatry - Pt admitted under Ramon Act for suicide attempt but taking pills (unknown which pills were taken) and mixing with alcohol. - Ethyl alcohol level was 130 at admission - Tox scan was positive for Benzos - Salicylate and Acetaminophen levels were negative. - hypotension resolved - Pt seen by Psychiatry & Ramon Act lifted - Pt now telling nursing staff that she chose to lock herself in her room. - Pt now refusing to go to [facility] - f/u with PCP, Dr. Harjit Lebron, in 1 week - f/u with [facility] Psychiatry in 1 week - see discharge orders (2) Depression Status: Chronic Plan: - zoloft per psychiatry (3) Subdural hematoma Status: Resolved Plan: - Pt previously was admitted in 04/2016 for falls at home and was found to have a SDH - Pt s/p Left frontal [place] hole for evacuation of SDH on 05/17/[address] Clay (4) DM (diabetes mellitus) Status: Chronic Plan: - NovoLog SSI - Accu checks - resume levemir upon discharge (5) HTN (hypertension) Status: Chronic Plan: - resume BP meds upon discharge (6) Anxiety Status: Chronic Plan: - See above. (7) Hepatitis C Status: Chronic Plan: - Chronic Hepatitis C, Genotype 1, pt had been on treatment with Ribavirin and Viekira up until her fall/SDH in 04/2016 - Pt has been off treatment for this since her fall in 04/2016 - Pt follows with Dr. Torrez for this. - During last admission pt had documentation reporting a hx of HIV. Pt denies this and there was no report of this in outpt records. We will check HIV testing to confirm this. Pt Condition on Discharge: Stable Discharge Disposition: Disch w/ Home Health Serv Discharge Instructions DIET: Follow Instructions for: Heart Healthy Diet, Diabetic Diet Activities you can perform: Regular-No Restrictions Follow up Referrals: Behavioral Services - 1 Week with [facility] Mental Health PCP Follow-up - [address] Harjit Lebron Continued Medications: Amlodipine (Amlodipine) 10 Mg Tab 10 MG PO DAILY Blood Pressure Management #30 Ref 0 TAB Cholecalciferol (Vitamin D3) 5,000 Unit Chew 5000 UNITS CHEW DAILY Nutritional Supplement #1 Ref 0 BOTTLE Empagliflozin (Jardiance) 25 Mg Tab 25 MG PO DAILY Blood Sugar Management #30 Ref 0 TAB Gabapentin (Gabapentin) 300 Mg Cap 300 MG PO HS #30 Ref 0 CAP Glimepiride (Glimepiride) 4 Mg Tab 4 MG PO DAILY Take with breakfast or first main meal Blood Sugar Management #30 Ref 0 TAB Metoprolol Tartrate (Metoprolol Tartrate) 25 Mg Tab 25 MG PO BID #60 Ref 0 TAB Pantoprazole (Protonix) 40 Mg Tab 40 MG PO MWF Reflux #30 Ref 0 TAB Propranolol (Propranolol) 10 Mg Tab 10 MG PO Q12HR #60 Ref 0 TAB Quetiapine (Quetiapine) 50 Mg Tab 50 MG PO BID #60 Ref 0 TAB Sertraline (Sertraline) 25 Mg Tab 25 MG PO DAILY #30 Ref 0 TAB Valacyclovir (Valacyclovir) 500 Mg Tab 500 MG PO DAILY Mgmt Viral Infection #30 Ref 0 TAB Discontinued Medications: Levetiracetam (Levetiracetam) 500 Mg Tab 500 MG PO BID Control Seizures #60 Ref 0 TAB Pregabalin (Lyrica) 25 Mg Cap 50 MG PO BID nerve pain #60 Ref 5 CAP Gavin Gusman DO Aug 06, 2016 16:35
--- NOTE | 2016-08-07 15:35 | MH ---
cc: BROOKE MARQUEZ M.D. DATE OF ADMISSION: 08/03/2016 NOTE I went to see the patient and was told that she had been discharged. As such, I discussed this with Dr. Gusman who indicated that the patient changed her mind and refused to go to the [facility]. She also refused an assisted living facility or usp placement. As such, she was discharged home with recommendations to continue psychiatric followup at [facility] and also to have individual psychotherapy with a therapist. She will also receive services of a home health nurse. No aggressive or self-destructive behavior was reported. MD JOSSELYN Mensah/ALLEGRA /3:27 PM /3:33 PM
== END 2016-08-06 18:26 | disposition home or self-care (01) | DRG 918 ==
LOC: NEPE 19:11 → NEDA 21:58 → HIMW 23:05 → N06A 08-05 20:04
PROVIDERS: ADMIT Hospitalist; ATTEND Hospitalist
DX: T50.902A Poisoning by unspecified drugs, medicaments and biological substances, intentional self-harm, initial encounter (principal); E11.42 Type 2 diabetes mellitus with diabetic polyneuropathy; F33.2 Major depressive disorder, recurrent severe without psychotic features; K31.84 Gastroparesis; E11.43 Type 2 diabetes mellitus with diabetic autonomic (poly)neuropathy; B18.2 Chronic viral hepatitis C; G25.81 Restless legs syndrome; K21.9 Gastro-esophageal reflux disease without esophagitis; F10.229 Alcohol dependence with intoxication, unspecified; F41.9 Anxiety disorder, unspecified; Y90.6 Blood alcohol level of 120-199 mg/100 ml; I10 Essential (primary) hypertension; Z79.4 Long term (current) use of insulin; Z87.891 Personal history of nicotine dependence; Y92.009 Unspecified place in unspecified non-institutional (private) residence as the place of occurrence of the external cause
CPT/HCPCS: 71010; 80048; 80053; 80307; 81001; 82948; 83735; 84439; 84443; 85007; 85025; 85027; 85610; 85730; 86703; 87641; 93005; J1815; J7030

== ENCOUNTER 2016-10-06 02:09 | Inpatient (IN) | payer OTHER ==
[2016-10-06] VITALS (11 sets, daily range): BP systolic 114–158; BP diastolic 69–95; PULSE 87–127; RESP 17–20; TEMP 97.6–99.7; O2SAT 94–96
[~2016-10-06] VITALS: Ht 170.2 cm; Wt 64.5 kg
[~2016-10-06 02:09] MED LIST changes: -AMLO10TA2 PO; +GLIM4TAB PO; +METO25TA3 PO; -NORC5TAB PO; -OTHER; -PANT40TA3 PO; -PREG25 PO; +PROT40TA PO; +QUET5TAB PO; -RIBA200C5 PO; -RITO100 PO; +VITA500030 CHEW; -ZOFR4TAB3 SL
[2016-10-06] MEDS ORDERED: SODIUM CHLOR 0.9% 1000 ML INJ 1,000 ML IV ONE ×2 (02:15→05:30)
[2016-10-06] MEDS ORDERED: SODIUM CHLORIDE 0.9% FLUSH 5 ML FLUSH IV FLUSH PRN (02:15)
--- NOTE | 2016-10-06 02:15 | PD ---
HPI Chief Complaint: GI Complaint Time Seen by Provider: 02:10 Travel History International Travel<30 days: No Contact w/Intl Traveler<30days: No History of Present Illness HPI This is a 61-year-old female who has a history of alcohol abuse, depression and subdural hematoma in April presents to the emergency department with vomiting. She is a very poor historian, and is not very linear. She says over the past week she's had increasing vomiting and some headaches. She says at some point in the past week she fell and put a head size hole in her wall. She doesn't remember the episode. She also has bruises on her legs which she assumes her from a fall. She says she feels lightheaded and fatigued. She says up until a month ago she had home nursing that they don't come anymore and she's been having trouble getting around her house. She says she has someone and lives with her that she doesn't think she is helping enough. She says she just doesn't feel well. She is supposed to be on metoprolol for her heart rate but she hasn't filled any of her 8 prescriptions in the past week because she's been too fatigued to do so. PFSH Past Medical History Arthritis: No Autoimmune Disease: Yes Blood Disorders: No Anxiety: Yes Cancer: No Cardiovascular Problems: No Diabetes: Yes Diminished Hearing: No Endocrine: Yes Gastrointestinal Disorders: Yes (ACID REFLUX ) Glaucoma: No Genitourinary: No Hepatitis: Yes (HEPATITIS C ) Hiatal Hernia: No Hypertension: Yes Immune Disorder: No Implanted Vascular Access Dvce: No Musculoskeletal: No Neurologic: Yes (NEUROPATHY) Psychiatric: Yes (ANXIETY; SITUATIONAL DEPRESSION ) Reproductive: No Respiratory: No Thyroid Disease: No PNEUMOCCOCAL Vaccine (Year): 2 Menopausal: Yes Tubal Ligation: Yes Past Surgical History Abdominal Surgery: No AICD: No Body Medical Devices: NONE Cardiac Surgery: No Ear Surgery: No Endocrine Surgery: No Eye Surgery: Yes (LEFT/RIGHT CATARACT WITH LENS, UPPER LID BLEPHROPLASTY) Genitourinary Surgery: No Gynecologic Surgery: Yes (TUBAL LIGATION) Joint Replacement: No Neurologic Surgery: Yes (SUBDURAL BLEED WITH SX) Oral Surgery: Yes (T & A) Pacemaker: No Thoracic Surgery: No Tonsillectomy: Yes Other Surgery: Yes Social History Alcohol Use: Yes Tobacco Use: No Substance Use: No Allergies-Medications (Allergen,Severity, Reaction): Coded Allergies: Iohexol (OMNIPAQUE) (Verified Allergy, Severe, Hives, 10/06/16) date of allergy 06/20/11: facial hives and itching Codeine (Verified Adverse Reaction, Severe, NAUSEA, 10/06/16) *MDRO Multi-Drug Resistant Organism (Verified Adverse Reaction, Unknown, ) MRSA 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 - 08/04/2016 Reported Meds & Prescriptions Reported Meds & Active Scripts Active Reported Glimepiride 4 Mg Tab 4 Mg PO DAILY Take with breakfast or first main meal Quetiapine (Quetiapine Fumarate) 50 Mg Tab 50 Mg PO BID Protonix (Pantoprazole Sodium) 40 Mg Tab 40 Mg PO MWF Metoprolol Tartrate 25 Mg Tab 25 Mg PO BID Valacyclovir (Valacyclovir HCl) 500 Mg Tab 500 Mg PO DAILY Propranolol (Propranolol HCl) 10 Mg Tab 10 Mg PO Q12HR Sertraline (Sertraline HCl) 25 Mg Tab 25 Mg PO DAILY Gabapentin 300 Mg Cap 300 Mg PO HS Jardiance (Empagliflozin) 25 Mg Tab 25 Mg PO DAILY Review of Systems Except as stated in HPI: all other systems reviewed are Neg Physical Exam Narrative GENERAL: Disheveled SKIN: Focused skin assessment warm and dry. HEAD: Atraumatic. Normocephalic. EYES: Pupils equal and round. No injection or drainage. ENT: Moist mucous membranes NECK: Trachea midline. CARDIOVASCULAR: Tachycardic. No murmur appreciated. RESPIRATORY: Clear to auscultation. Breath sounds equal bilaterally. GASTROINTESTINAL: Abdomen soft, mildly tender to palpation in the epigastrium. MUSCULOSKELETAL: No obvious deformities. NEUROLOGICAL: Awake and alert. No obvious cranial nerve deficits. Moving all extremities. PSYCHIATRIC: Poor eye contact, tearful, somewhat tangential Data Data Last Documented VS Vital Signs Date Time Temp Pulse Resp B/P Pulse Ox O2 Delivery O2 Flow Rate FiO2 10/06/16 04:42 110 18 118/69 95 Room Air 10/06/16 02:15 98.0 Orders Electrocardiogram (10/06/16 02:12) Complete Blood Count With Diff (10/06/16 02:12) Comprehensive Metabolic Panel (10/06/16 02:12) Urinalysis - C+S If Indicated (10/06/16 02:12) Chest, Single Ap (10/06/16 02:12) Ct Brain W/O Iv Contrast(Rout) (10/06/16 02:12) Blood Glucose (10/06/16 02:12) Ecg Monitoring (10/06/16 02:12) Iv Access Insert/Monitor (10/06/16 02:12) Oximetry (10/06/16 02:12) Sodium Chloride 0.9% Flush (Ns Flush) (10/06/16 02:15) Lipase (10/06/16 02:12) Alcohol (Ethanol) (10/06/16 02:12) Drug Screen, Random Urine (10/06/16 02:12) Sodium Chlor 0.9% 1000 Ml Inj (Ns 1000 M (10/06/16 02:15) Thiamine Inj (Thiamine Inj) (10/06/16 03:30) Us Abdomen Gallbladder (10/06/16 ) Ondansetron Inj (Zofran Inj) (10/06/16 03:30) Ct Abd/Pel W/O Iv Contrast (10/06/16 ) Blood Gas Venous (Vbg) (10/06/16 03:28) Osmolality,Serum (10/06/16 03:28) Lactic Acid (10/06/16 03:29) Beta Hydroxybutyrate (Acetone) (10/06/16 02:20) Prochlorperazine Inj (Compazine Inj) (10/06/16 03:45) Dext 5%-Nacl 0.9% 1000 Ml Inj (D5w-Ns 10 (10/06/16 04:15) Tylenol (Acetaminophen) (10/06/16 04:31) Salicylates (Aspirin) (10/06/16 05:12) Cbc No Diff, Includes Plts (10/06/16 05:25) Basic Metabolic Panel (Bmp) (10/06/16 05:25) Alcohol (Ethanol) (10/06/16 05:25) Osmolality,Serum (10/06/16 05:25) Sodium Chlor 0.9% 1000 Ml Inj (Ns 1000 M (10/06/16 05:30) Labs Laboratory Tests Test 10/06/16 10/06/16 10/06/16 10/06/16 02:20 03:35 03:40 04:27 White Blood Count 9.6 TH/MM3 Red Blood Count 5.26 MIL/MM3 Hemoglobin 16.5 GM/DL Hematocrit 50.7 % Mean Corpuscular Volume 96.3 FL Mean Corpuscular Hemoglobin 31.3 PG Mean Corpuscular Hemoglobin 32.5 % Concent Red Cell Distribution Width 14.4 % Platelet Count 142 TH/MM3 Mean Platelet Volume 10.3 FL Neutrophils (%) (Auto) 84.6 % Lymphocytes (%) (Auto) 12.4 % Monocytes (%) (Auto) 2.3 % Eosinophils (%) (Auto) 0.1 % Basophils (%) (Auto) 0.6 % Neutrophils # (Auto) 8.1 TH/MM3 Lymphocytes # (Auto) 1.2 TH/MM3 Monocytes # (Auto) 0.2 TH/MM3 Eosinophils # (Auto) 0.0 TH/MM3 Basophils # (Auto) 0.1 TH/MM3 CBC Comment DIFF FINAL Differential Comment Sodium Level 134 MEQ/L Potassium Level 4.5 MEQ/L Chloride Level 95 MEQ/L Carbon Dioxide Level 15.1 MEQ/L Anion Gap 24 MEQ/L Blood Urea Nitrogen 13 MG/DL Creatinine 0.74 MG/DL Estimat Glomerular Filtration 80 ML/MIN Rate Random Glucose 189 MG/DL Calcium Level 9.4 MG/DL Total Bilirubin 1.8 MG/DL Aspartate Amino Transf 40 U/L (AST/SGOT) Alanine Aminotransferase 55 U/L (ALT/SGPT) Alkaline Phosphatase 109 U/L Total Protein 10.1 GM/DL Albumin 4.3 GM/DL Lipase 104 U/L Ethyl Alcohol Level LESS THAN 3 MG/DL B-Hydroxybutyrate 10.49 MMOL/L Blood Gas Puncture Site LARM Blood Gas Patient Temperature 98.6 Venous Blood pH 7.24 Venous Blood Partial Pressure 41 mmHg CO2 Venous Blood Partial Pressure 31 mmHg O2 Venous Blood HCO3 17 mmol/L Venous Blood Oxygen Saturation 44 % Venous Blood Oxygen Content 10.2 Vol % Venous Blood Base Excess -8.9 mmol/L Blood Gas Inspired Oxygen 21 % Serum Osmolality 309 MOSM/KG Salicylates Level LESS THAN 1.7 MG/DL Lactic Acid Level 1.7 mmol/L Test 10/06/16 04:30 Acetaminophen Level LESS THAN 2.0 MCG/ML MDM Medical Decision Making Medical Screen Exam Complete: Yes Emergency Medical Condition: Yes Interpretation(s) Afebrile, tachycardic, hypertensive No leukocytosis Hemoconcentration Mild hyponatremia Anion gap metabolic acidosis Serum osmolality of 309 with the osmolar gap of 26 Total bilirubin is 1.8 Total protein is 10.1 ABG confirms metabolic acidosis Last [address] 10/06/16211 Signed Impressions: Service Date/Time: September 02:39 - CONCLUSION: Unremarkable study. Renee Bardales MD Chest X-Ray 10/06/16211 Signed Impressions: Service Date/Time: September 02:26 - CONCLUSION: Right seventh rib fracture. Renee Bardales MD Abdomen/Pelvis CT 10/06/16 0000 Signed Impressions: Service Date/Time: September 03:41 - CONCLUSION: Slight fatty liver. Renee Bardales MD Differential Diagnosis Rib fracture, liver laceration, pneumothorax, intracranial hemorrhage, pancreatitis, gastritis, cholelithiasis, cholecystitis Narrative Course This is a 61-year-old female who has a history of alcohol abuse who presents to the emergency department with vomiting and falling for one week. She is a very poor historian and is very tangential on interview. She had a recent admission under a [facility] act for a suicide attempt. She is placed on a monitor and an IV was established. She was given IV hydration. Labs demonstrate an anion gap metabolic acidosis with the osmolar gap of 26. This would be concerning for a toxic alcohol ingestion in the right setting. She does have a markedly elevated beta hydroxybutyrate. Given this and her history of alcohol use I suspect this all reflect alcoholic ketoacidosis. I think her osmolar gap is elevated in the setting of a high total protein. However given her recent suicide attempt I did contact poison control. They recommended we repeat blood work now after the patient's received some hydration and see if the has more gap is persistent. Patient will be admitted. She was started on dextrose here in the emergency department. Physician Communication Physician Communication Discussed with Dr. Winchester Diagnosis Primary Impression: Alcoholic ketoacidosis Admitting Information Admitting Physician Requests: Admit Luiza Parks MD Oct 06, 2016 02:15
[2016-10-06 02:29] LABS: AUTOMATED NEUTROPHIL # 8.1 TH/MM3 (1.8-7.7); BASOPHIL # 0.1 TH/MM3 (0-0.2); BASOPHIL % 0.6 % (0.0-2.0); EOSINOPHIL % 0.1 % (0.0-4.0); HEMATOCRIT 50.7 % (35.0-46.0); HEMO FLAGS DIFF FINAL; LYMPH % 12.4 % (9.0-44.0); LYMPHOCYTE # 1.2 TH/MM3 (1.0-4.8); MEAN CELL VOLUME 96.3 FL (80.0-100.0); MEAN CORPUSCULAR HEMOGLOBIN 31.3 PG (27.0-34.0); MEAN CORPUSCULAR HGB CONC 32.5 % (32.0-36.0); MONO % 2.3 % (0.0-8.0); NEUT % 84.6 % (16.0-70.0); PLATELET COUNT 142 TH/MM3 (150-450); RED BLOOD COUNT 5.26 MIL/MM3 (4.00-5.30); RED CELL DISTRIBUTION WIDTH 14.4 % (11.6-17.2); WHITE BLOOD COUNT 9.6 TH/MM3 (4.0-11.0)
[2016-10-06 02:36] LABS: CHLORIDE 95 MEQ/L (98-107); SODIUM (NA) 134 MEQ/L (136-145)
[2016-10-06 02:39] LABS: POTASSIUM 4.5 MEQ/L (3.5-5.1)
[2016-10-06 02:40] LABS: ANION GAP 24 MEQ/L (5-15); BICARBONATE 15.1 MEQ/L (21.0-32.0); BLOOD UREA NITROGEN 13 MG/DL (7-18)
[2016-10-06 02:43] LABS: ALT (GPT) 55 U/L (10-53); AST (GOT) 40 U/L (15-37); GLOMERULAR FILTRATION RATE 80 ML/MIN (>89)
--- NOTE | 2016-10-06 02:43 | RADHPO ---
EXAM DATE/TIME: 10/06/2016 02:26 [facility] COMPARISON: CHEST SINGLE AP, August 03, 2016, 22:09. INDICATIONS : Chest and rib pain post fall. MEDICAL HISTORY : HIV. Hypertension. Hepatitis C. SURGICAL HISTORY : None. ENCOUNTER: Initial ACUITY: 1 day PAIN SCORE: 8/10 LOCATION: Right chest FINDINGS: The lungs are clear without infiltrate, nodule, or mass. There is no appreciable pleural effusion fo r technique. Heart and mediastinum are unremarkable. There is a fracture of right seventh rib not pr esent previously . No definite pneumothorax is seen for technique. CONCLUSION: Right seventh rib fracture. Renee Bardales MD on October 06, 2016 at 2:40 Board Certified Radiologist. This report was verified electronically.
[2016-10-06 02:44] LABS: TOTAL BILIRUBIN ADULT 1.8 MG/DL (0.2-1.0)
[2016-10-06 02:46] LABS: ALKALINE PHOSPHATASE 109 U/L (45-117)
--- NOTE | 2016-10-06 03:09 | RADHPO ---
EXAM DATE/TIME: 10/06/2016 02:39 [facility] COMPARISON: CT BRAIN W/O CONTRAST, June 17, 2016, 0:31. INDICATIONS : Headache along with nausea and vomiting RADIATION DOSE: 63.56 CTDIvol (mGy) MEDICAL HISTORY : Hepatitis C. Diabetes mellitus type 2. Hypertension.History of a subdural bleed. SURGICAL HISTORY : Tubal ligation. Tonsillectomy. ENCOUNTER: Initial ACUITY: 2 weeks PAIN SCALE: 8/10 LOCATION: cranial TECHNIQUE: Multiple contiguous axial images were obtained of the head. Using automated exposure control and adj ustment of the mA and/or kV according to patient size, radiation dose was kept as low as reasonably a chievable to obtain optimal diagnostic quality images. FINDINGS: There is no evidence for intracranial hemorrhage, mass effect, mass lesions, edema, or extra-axial fl uid collections. The visualized bony structures appear intact. The ventricles are normal size for t he patient's age. There are no signs of acute infarction for technique. CONCLUSION: Unremarkable study. Renee Bardales MD on October 06, 2016 at 3:07 Board Certified Radiologist. This report was verified electronically.
[2016-10-06] MEDS ORDERED: ONDANSETRON HCL 4 MG/2 ML VIAL IV PUSH ONE (03:30)
[2016-10-06] MEDS ORDERED: THIAMINE INJ 100 MG in SODIUM CHLORIDE 0.9% INJ 100 ML IV ONE (03:30)
[2016-10-06] MEDS ORDERED: PROCHLORPERAZINE INJ 10 MG/2 ML VIAL IV PUSH ONE (03:45)
[2016-10-06 03:46] LABS: BLOOD GAS VENOUS BASE EXCESS -8.9 mmol/L (-2-2); BLOOD GAS VENOUS HCO3 17 mmol/L (22-26); BLOOD GAS VENOUS O2 CONTENT 10.2 Vol % (9.0-17.0); BLOOD GAS VENOUS O2 HGB SAT 44 % (70-76); BLOOD GAS VENOUS PCO2 41 mmHg (44-48); BLOOD GAS VENOUS PO2 31 mmHg (35-40); BLOOD GAS VENOUS pH 7.24 (7.360-7.400); TEMP CORR TO 98.6
[2016-10-06 03:47] LABS: CRITICAL VALUE YES; FIO2 21 %; STAT YES
[2016-10-06 04:02] LABS: BETA-HYDROXYBUTYRATE 10.49 MMOL/L (0.00-0.39)
--- NOTE | 2016-10-06 04:04 | RADHPO ---
EXAM DATE/TIME: 10/06/2016 03:41 [facility] COMPARISON: No previous studies available for comparison. INDICATIONS : Abdominal pain along with vomiting. ORAL CONTRAST: No oral contrast ingested. RADIATION DOSE: 7.21 CTDIvol (mGy) MEDICAL HISTORY : Hepatitis C. Diabetes mellitus type 2. Hypertension.History of subdural bleed. SURGICAL HISTORY : Tubal ligation. Tonsillectomy. ENCOUNTER: Initial ACUITY: 2 weeks PAIN SCALE: 8/10 LOCATION: abdomen TECHNIQUE: Volumetric scanning of the abdomen and pelvis was performed. Using automated exposure control and ad justment of the mA and/or kV according to patient size, radiation dose was kept as low as reasonably achievable to obtain optimal diagnostic quality images. FINDINGS: CT Abdomen: The spleen, pancreas, kidneys, adrenals are unremarkable. There is no evidence for any ap preciable pathological adenopathy, free fluid, or bowel obstruction. There is old fracture of the le ft L1 transverse process. Chronic vascular calcifications are present involving the aorta, iliac virgil bruna without any significant stenosis or aneurysmal dilatations for technique. The liver is fatty wit hout focal lesions or technique. CT pelvis: There is no evidence for mass, abscess formation, or any significant adenopathy within the pelvis. The appendix appears intact without definite signs of appendicitis. CONCLUSION: Slight fatty liver. Renee Bardales MD on October 06, 2016 at 3:59 Board Certified Radiologist. This report was verified electronically.
[2016-10-06] MEDS ORDERED: DEXT 5%-NACL 0.9% 1000 ML INJ 1,000 ML IV SCH (04:15)
[2016-10-06 05:49] LABS: BLOOD, URINE SMALL (NEG); NITRITE,URINE NEG (NEG); PH, URINE 5.5 (5.0-8.5)
[2016-10-06 05:52] LABS: HEMATOCRIT 48.4 % (35.0-46.0); MEAN CELL VOLUME 97.5 FL (80.0-100.0); MEAN CORPUSCULAR HGB CONC 31.8 % (32.0-36.0); PLATELET COUNT 140 TH/MM3 (150-450); RED BLOOD COUNT 4.97 MIL/MM3 (4.00-5.30); RED CELL DISTRIBUTION WIDTH 14.9 % (11.6-17.2); REVIEW FLAG FINAL; WHITE BLOOD COUNT 9.7 TH/MM3 (4.0-11.0)
[2016-10-06 05:54] LABS: GLUCOSE,URINE 1000 OR GREATER mg/dL (NEG); KETONE, URINE 80 OR GREATER mg/dL (NEG); URINE COLOR STRAW (YELLW/STRAW)
[2016-10-06 05:55] LABS: COMMENT (UR) CULT NOT INDICATED; CULTURE IF INDICATED CULT NOT INDICATED; SQUAMOUS EPITHELIAL CELL URINE 0-5 /hpf (0-5); WBC, URINE 0-2 /hpf (0-5)
[2016-10-06 05:56] LABS: CHLORIDE 101 MEQ/L (98-107); SODIUM (NA) 138 MEQ/L (136-145)
[2016-10-06 05:57] LABS: AMPHETAMINE, URINE NEG (NEG); BARBITURATES, URINE NEG (NEG); COCAINE, URINE NEG (NEG)
[2016-10-06 05:59] LABS: ANION GAP 23 MEQ/L (5-15); BICARBONATE 14.5 MEQ/L (21.0-32.0); BLOOD UREA NITROGEN 13 MG/DL (7-18)
[2016-10-06 06:02] LABS: GLOMERULAR FILTRATION RATE 71 ML/MIN (>89)
--- NOTE | 2016-10-06 06:03 | RADHPO ---
EXAM DATE/TIME: 10/06/2016 05:07 [facility] COMPARISON: No previous studies available for comparison. INDICATIONS : Right upper quadrant pain. MEDICAL HISTORY : Hypertension. Hepatitis C. Gastroesophageal reflux disease. Toxoplasmosis. Neuropathy. Subdural hemat lili. Diabetes. Depression. Anxiety. Substance abuse. Alcohol abuse. Gardiner to feet. SURGICAL HISTORY : Tubal ligation. Tonsillectomy. Left frontal karla hole. ENCOUNTER: Initial ACUITY: 1 day PAIN SCORE: 1/10 LOCATION: Right upper quadrant MEASUREMENTS: LIVER: 14.4 cm length COMMON DUCT: 7 mm RIGHT KIDNEY: 10.8 x 4.7 x 4.3 cm FINDINGS: The gallbladder is intact without any evidence for gallstones, gallbladder wall thickening, or perich olecystic fluid. The visualized liver, head of the pancreas, and right kidney appear grossly intact for technique. CONCLUSION: Unremarkable study. Renee Bardales MD on October 06, 2016 at 6:01 Board Certified Radiologist. This report was verified electronically.
--- NOTE | 2016-10-06 08:08 | HHI.HP ---
HPI Service [facility] Hospitalists Primary Care Physician Harjit Lebron MD Admission Diagnosis alcoholic ketoacidosis Chief Complaint: n/v, weakness, falls Travel History International Travel<30 Days: No Contact w/Intl Traveler <30 Da: No Traveled to Known Affected Are: No History of Present Illness This is a 61-year-old female who has a history of DM2, alcohol abuse, depression and subdural hematoma in April 2016 presents to the emergency department with vomiting. She is pleasant, but a somewhat poor historian and has tendency to be tangential particularly when asked about EtOH use. She says over the past week she's had increasing vomiting and some headaches. She says at some point in the past week she fell and put a head size hole in her wall. She doesn't remember the episode, thinks it actually may have been her knee that went through the wall rather than her head. She also has bruises on her legs which she assumes her from a fall a few days ago. She says she feels lightheaded and fatigued. She says up until a month ago she had someone staying in her home to provide extra care but they were actually taking some of her meds. She reports that it cost her nearly "3 grand" to get them out of her home. The caregiver was not a nurse or trained professional per her report but was a "girlfriend that helped me out". She's been having trouble getting around her house. She says she just doesn't feel well in general. She is supposed to be on metoprolol for her heart rate but she hasn't filled any of her 8 prescriptions in the past week because she's been too fatigued to do so. She reports that she is actually not been getting several of her meds of late. Patient denies recent alcohol use but states that she went for a facial the other day and someone tried to give her a bloody Penny which they said was just tomato juice. She says she took 2 sips of it but said it tasted like it was "sour tomatoes" and she drink no more. She states the last time she drank alcohol was several weeks ago when the caregiver was still present. It is noted that she had HIV listed as a diagnosis on a previous visit but that appears to be an error. She does have hepatitis C for which she has been getting treatment with Dr. Torrez. Patient reports the last episode of vomiting was earlier this morning when she went for CT. Her labs on arrival were notable for an osmolar gap of around 25 or 26 and a significant metabolic acidosis with anion gap. She had an elevated beta hydroxybutyrate at around 10 and ketones in her urine. She also has significant glucose in her urine which is not surprising given that she takes Jardiance. ER physician communicated to me that she had talked with poison control center was some suspicion of some other substance contributing to significant osmolar gap in this patient. Repeat osmolality is pending at this point. Repeat bicarbonate still low around 14-/2. Review of Systems ROS Limitations: Poor Historian Constitutional: COMPLAINS OF: Diaphoretic episodes, Fatigue, Weight loss, Dizziness, DENIES: Fever, Weight gain, Chills, Change in appetite, Night Sweats Eyes: DENIES: Blurred vision, Diplopia, Eye inflammation, Eye pain, Vision loss , Photosensitivity, Double Vision Ears, nose, mouth, throat: DENIES: Tinnitus, Hearing loss, Vertigo, Nasal discharge, Oral lesions, Throat pain, Hoarseness, Ear Pain, Running Nose, Epistaxis, Sinus Pain, Toothache, Odynophagia Respiratory: DENIES: Apneas, Cough, Snoring, Wheezing, Hemoptysis, Sputum production, Shortness of breath Cardiovascular: DENIES: Chest pain, Palpitations, Syncope, Dyspnea on Exertion , PND, Lower Extremity Edema, Orthopnea, Claudication Gastrointestinal: COMPLAINS OF: Abdominal pain, GERD, Nausea, Vomiting Musculoskeletal: COMPLAINS OF: Joint pain, Back pain Immunologic/allergic: DENIES: Eczema, Urticaria Neurologic: COMPLAINS OF: Abnormal gait, Poor Balance Psychiatric: COMPLAINS OF: Anxiety, Confusion, Depression, DENIES: Mood changes, Hallucinations, Agitation, Suicidal Ideation, Homicidal Ideation, Delusions, History of Bipolar, History of Schizophrenia Past Family Social History Past Medical History GERD Generalized anxiety disorder White's esophagus Chronic viral hepatitis C Major depressive disorder Type 2 diabetes with peripheral neuropathy Gastroparesis Hypertension Polyclonal gammopathy History of hospitalization for reported suicide attempt although patient denies this was a suicide attempt that she was trying to get out of the situation at home with the "caregiver" Subdural hematoma from a fall in April 2016 Past Surgical History Cataract surgery bilaterally in 2015 Hemorrhoidectomy Tonsillectomy History of tubal ligation History of percutaneous liver biopsy Hixton hole placement April 2016 EGD done in August 2014 demonstrated some esophagitis; colonoscopy done same time demonstrated a couple of sessile polypoid suggested repeat in 2019. Reported Medications *Somewhat unclear what she is actually taking as patient is uncertain of which met she is actually filled. The following list was obtained from previous discharge note and review of outpatient records Amlodipine (Amlodipine) 10 Mg Tab 10 MG PO DAILY Blood Pressure Management #30 Ref 0 TAB Cholecalciferol (Vitamin D3) 5,000 Unit Chew 5000 UNITS CHEW DAILY Nutritional Supplement #1 Ref 0 BOTTLE Empagliflozin (Jardiance) 25 Mg Tab 25 MG PO DAILY Blood Sugar Management #30 Ref 0 TAB Gabapentin (Gabapentin) 300 Mg Cap 300 MG PO HS #30 Ref 0 CAP Glimepiride (Glimepiride) 4 Mg Tab 4 MG PO DAILY Take with breakfast or first main meal Blood Sugar Management #30 Ref 0 TAB Metoprolol Tartrate (Metoprolol Tartrate) 25 Mg Tab 25 MG PO BID #60 Ref 0 TAB Pantoprazole (Protonix) 40 Mg Tab 40 MG PO MWF Reflux #30 Ref 0 TAB Propranolol (Propranolol) 10 Mg Tab 10 MG PO Q12HR #60 Ref 0 TAB Quetiapine (Quetiapine) 50 Mg Tab 50 MG PO BID #60 Ref 0 TAB Sertraline (Sertraline) 25 Mg Tab 25 MG PO DAILY #30 Ref 0 TAB Valacyclovir (Valacyclovir) 500 Mg Tab 500 MG PO DAILY Mgmt Viral Infection #30 Ref 0 TAB Allergies: Coded Allergies: Iohexol (OMNIPAQUE) (Verified Allergy, Severe, Hives, 10/06/16) date of allergy 06/20/11: facial hives and itching Codeine (Verified Adverse Reaction, Severe, NAUSEA, 10/06/16) *MDRO Multi-Drug Resistant Organism (Verified Adverse Reaction, Unknown, ) MRSA 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 - 08/04/2016 Family History Diabetes in a maternal uncle and aunt Social History No tobacco in approximately 7 years prior to that smoked somewhat sparingly for 20 years Long history of alcohol abuse starting at age 19 but states that she has not been drinking much of late. Actually reports that the last alcohol she consumed was over a month ago. 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 Alert and cooperative with exam. She is a bit tangential when it comes to her history of alcohol use as noted above. SKIN: Ecchymotic areas bilateral knees with some surface abrasion pretibial aspects bilaterally. Cool and dry. HEAD: Prior surgical wound noted. Normocephalic. No temporal or scalp tenderness. EYES: Pupils equal round and reactive. Extraocular motions intact. No scleral icterus. No injection or drainage. ENT: Nose without bleeding, purulent drainage or septal hematoma. Throat without erythema, tonsillar hypertrophy or exudate. Airway patent. NECK: Trachea midline. No JVD or lymphadenopathy. Supple, nontender, no meningeal signs. CARDIOVASCULAR: Regular rate and rhythm without murmurs, gallops, or rubs. RESPIRATORY: Clear to auscultation. Breath sounds equal bilaterally. No wheezes , rales, or rhonchi. GASTROINTESTINAL: Abdomen soft, mild tenderness to palpation globally, nondistended. No hepato-splenomegaly, or palpable masses. No guarding. Bowel sounds normal. MUSCULOSKELETAL: Extremities without clubbing, cyanosis, or edema. Slight tenderness bilateral knees with minimal joint effusion. No calf tenderness. NEUROLOGICAL: Awake and alert. Cranial nerves II through XII intact. Motor and sensory grossly within normal limits. Five out of 5 muscle strength in all muscle groups. Normal speech. Laboratory Laboratory Tests Test 10/06/16 10/06/16 10/06/16 10/06/16 02:20 03:35 03:40 04:27 White Blood Count 9.6 Red Blood Count 5.26 Hemoglobin 16.5 Hematocrit 50.7 Mean Corpuscular Volume 96.3 Mean Corpuscular Hemoglobin 31.3 Mean Corpuscular Hemoglobin 32.5 Concent Red Cell Distribution Width 14.4 Platelet Count 142 Mean Platelet Volume 10.3 Neutrophils (%) (Auto) 84.6 Lymphocytes (%) (Auto) 12.4 Monocytes (%) (Auto) 2.3 Eosinophils (%) (Auto) 0.1 Basophils (%) (Auto) 0.6 Neutrophils # (Auto) 8.1 Lymphocytes # (Auto) 1.2 Monocytes # (Auto) 0.2 Eosinophils # (Auto) 0.0 Basophils # (Auto) 0.1 CBC Comment DIFF FINAL Differential Comment Sodium Level 134 Potassium Level 4.5 Chloride Level 95 Carbon Dioxide Level 15.1 Anion Gap 24 Blood Urea Nitrogen 13 Creatinine 0.74 Estimat Glomerular Filtration 80 Rate Random Glucose 189 Calcium Level 9.4 Total Bilirubin 1.8 Aspartate Amino Transf 40 (AST/SGOT) Alanine Aminotransferase 55 (ALT/SGPT) Alkaline Phosphatase 109 Total Protein 10.1 Albumin 4.3 Lipase 104 Ethyl Alcohol Level LESS THAN 3 B-Hydroxybutyrate 10.49 Blood Gas Puncture Site LARM Blood Gas Patient Temperature 98.6 Venous Blood pH 7.24 Venous Blood Partial Pressure 41 CO2 Venous Blood Partial Pressure 31 O2 Venous Blood HCO3 17 Venous Blood Oxygen Saturation 44 Venous Blood Oxygen Content 10.2 Venous Blood Base Excess -8.9 Blood Gas Inspired Oxygen 21 Serum Osmolality 309 Salicylates Level LESS THAN 1.7 Lactic Acid Level 1.7 Test 10/06/16 10/06/16 10/06/16 04:30 05:30 05:40 Acetaminophen Level LESS THAN 2.0 White Blood Count 9.7 Red Blood Count 4.97 Hemoglobin 15.4 Hematocrit 48.4 Mean Corpuscular Volume 97.5 Mean Corpuscular Hemoglobin 31.0 Mean Corpuscular Hemoglobin 31.8 Concent Red Cell Distribution Width 14.9 Platelet Count 140 Mean Platelet Volume 10.0 Sodium Level 138 Potassium Level 4.0 Chloride Level 101 Carbon Dioxide Level 14.5 Anion Gap 23 Blood Urea Nitrogen 13 Creatinine 0.82 Estimat Glomerular Filtration 71 Rate Random Glucose 215 Serum Osmolality 306 Calcium Level 8.8 Ethyl Alcohol Level LESS THAN 3 Urine Color STRAW Urine Turbidity CLEAR Urine pH 5.5 Urine Specific [place] 1.025 Urine Protein 30 Urine Glucose (UA) 1000 OR GREATER Urine Ketones 80 OR GREATER Urine Occult Blood SMALL Urine Nitrite NEG Urine Bilirubin NEG Urine Leukocyte Esterase NEG Urine RBC 3-5 Urine WBC 0-2 Urine Squamous Epithelial 0-5 Cells Urine Bacteria NONE Microscopic Urinalysis Comment CULT NOT INDICATED Urine Opiates Screen NEG Urine Barbiturates Screen NEG Urine Amphetamines Screen NEG Urine Benzodiazepines Screen POS Urine Cocaine Screen NEG Urine Cannabinoids Screen NEG Result Diagram: 10/06/1652910/06/16529 Imaging Last [address] 10/06/16211 Signed Impressions: Service Date/Time: , October 06, 2016 02:39 - CONCLUSION: Unremarkable study. Renee Bardales MD Chest X-Ray 10/06/16211 Signed Impressions: Service Date/Time: September 02:26 - CONCLUSION: Right seventh rib fracture. Renee Bardales MD Gall Bladder Ultrasound 10/06/16 0000 Signed Impressions: Service Date/Time: September 05:07 - CONCLUSION: Unremarkable study. Renee Bardales MD Abdomen/Pelvis CT 10/06/16 0000 Signed Impressions: Service Date/Time: September 03:41 - CONCLUSION: Slight fatty liver. Renee Bardales MD Assessment and Plan Problem List: (1) Metabolic acidosis Status: Acute Plan: Possibly a mixed picture of toxic metabolic acidosis with mild early diabetic ketoacidosis contributing. It is noted that she is on Jardiance which can contribute to DKA occurrence. We'll provide IV fluids. Cover it with insulin. Follow-up labs. Patient appears clinically stable. I have discussed the case with Dr. Black from nephrology who has made some recommendations regarding fluid administration. Case previously discussed with poison control by ER physician. (2) DM (diabetes mellitus) Status: Chronic Plan: We'll provide IV fluid and insulin coverage. Hold Jardiance and other oral hyperglycemic meds (3) Hepatitis C Status: Chronic Plan: Outpatient treatment with Dr. Torrez (4) Depression Status: Chronic Plan: Resume sertraline and quetiapine Patient denies any suicidal or homicidal ideation. Main issue will be long-term placement as she is demonstrating lack of ability to properly care for herself over the last few months. Patient is supposed to rehabilitation or intermediate facility. She has been opposed to assisted living facility as well in the past. We'll involve case management. (5) HTN (hypertension) Status: Chronic Plan: Blood pressures overall controlled here. We'll follow. Code Status full Discussed Condition With Patient, Dr. Black and emergency room physician. Physician Certification 2 Midnight Certification Type: Admission for Inpatient Services Order for Inpatient Services The services are ordered in accordance with Medicare regulations or non- Medicare payer requirements, as applicable. In the case of services not specified as inpatient-only, they are appropriately provided as inpatient services in accordance with the 2-midnight benchmark. Estimated LOS (days): 3 days is the estimated time the patient will need to remain in the hospital, assuming treatment plan goals are met and no additional complications. Post-Hospital Plan: Not yet determined Problem Qualifiers (1) DM (diabetes mellitus): (2) Hepatitis C: (3) Depression: (4) HTN (hypertension): Qualified Code: I10 - Essential hypertension Joey Winchester MD PhD Oct 06, 2016 08:08
[2016-10-06] MEDS ORDERED: INSULIN HUMAN NPH 1,000 UNITS/10 ML VIAL SQ ONE (08:30)
[2016-10-06] MEDS ORDERED: SODIUM BICARBONATE 8.4% INJ 100 MEQ in SODIUM CHLOR 0.45% 1000 ML INJ 1,000 ML IV SCH (09:00)
[2016-10-06] MEDS ORDERED: ONDANSETRON HCL 4 MG/2 ML VIAL IV PUSH PRN (09:00)
[2016-10-06] MEDS: SERTRALINE HCL 50 MG TAB PO SCH (09:00)
--- NOTE | 2016-10-06 09:05 | HHI.PR ---
Addendum to Inpatient Note Addendum Reason: Additional Documentation Additional Information I spoke with Stacie in poison control ([facility], [place] We went over current labs and ordered f/u labs. I advised her of IVF change. She suggested urine crystal analysis and fundus exam. I spoke with lab re: u/a. They report no crystals if not resulted on u/a specifically. Fundus exam difficult due to prior retina surgeries. Will continue current plan of care. Joey Winchester MD PhD Oct 06, 2016 09:05
[2016-10-06] MEDS: PROPRANOLOL HCL 10 MG TAB PO SCH ×2 (09:22→20:48)
[2016-10-06] MEDS: valACYclovir HCL 500 MG TAB PO SCH (09:22)
[2016-10-06] MEDS: QUEtiapine FUMARATE 25 MG TAB PO SCH ×2 (09:22→20:48)
[2016-10-06] MEDS: PANTOPRAZOLE SOD 40 MG DELAYED RELEASE TAB PO SCH (09:22)
[2016-10-06 09:54] LABS: BLOOD GAS CARBOXYHEMOGLOBIN 2.1 % (0-4); BLOOD GAS HCO3 15 mmol/L (22-26); BLOOD GAS METHEMOGLOBIN 1.2 % (0-2); BLOOD GAS O2 HGB SATURATION 91 % (90-100); BLOOD GAS OXYGEN CONTENT 18.1 Vol % (12.0-20.0); BLOOD GAS PCO2 30 mmHG (38-42); BLOOD GAS PO2 73 mmHG (61-120); BLOOD GAS TOTAL HGB 14.2 G/DL (12.0-16.0); TEMP CORR TO 98.6
[2016-10-06 09:55] LABS: CRITICAL VALUE YES; DRAW SITE RT BRACHIAL; FIO2 21 %; NUMBER OF ARTERIAL PUNCTURES 1; OXYGEN DEVICE RA; STAT NO; ULNAR PULSE PRESENT
[2016-10-06] MEDS: MULTIVITAMIN TAB PO SCH (10:00)
--- NOTE | 2016-10-06 10:38 | PD.CONS ---
HPI Service Nephrology Consult Requested By Dr. Winchester Reason for Consult Metabolic acidosis Primary Care Physician Harjit Lebron MD History of Present Illness Patient is a 61-year-old white female with history of diabetes since age 44 type II, she states that she had a fall when she was going to her parlor and the door hit her after which that she fell on Monday, since then she had developed nausea and vomiting and appetite is poor and she has generalized malaise and with these symptoms she came to the emergency, she was found to have ketoacidosis and her beta hydroxybutyrate was 10.49, she has been taking sodium-glucose co transporter 2 inhibitors Empagliflozin ( Jardiance), she is also under treatment for hepatitis C. She states that with that medication she was dizzy she could not recall the name. Review of Systems Constitutional: COMPLAINS OF: Fatigue Gastrointestinal: COMPLAINS OF: Nausea, Vomiting Past Family Social History Allergies: Coded Allergies: Iohexol (OMNIPAQUE) (Verified Allergy, Severe, Hives, 10/06/16) date of allergy 06/20/11: facial hives and itching Codeine (Verified Adverse Reaction, Severe, NAUSEA, 10/06/16) *MDRO Multi-Drug Resistant Organism (Verified Adverse Reaction, Unknown, ) MRSA 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 - 08/04/2016 Past Medical History Diabetes History of fall in April resulting in subdural hematoma Hepatitis C Hypertension Tachycardia Gastroparesis Polyclonal gammopathy History of hospitalization for reported suicide attempt although patient denies this was a suicide attempt that she was trying to get out of the situation at home with the "caregiver" Subdural hematoma from a fall in April 2016 Past Surgical History Ariana hole surgery to the scalp Cataract surgery bilaterally in 2014 Hemorrhoidectomy Tonsillectomy History of tubal ligation History of percutaneous liver biopsy EGD done in August 2014 demonstrated some esophagitis; colonoscopy done same time demonstrated a couple of sessile polypoid suggested repeat in 2019. Reported Medications Reported Meds & Active Scripts Active Reported Glimepiride 4 Mg Tab 4 Mg PO DAILY Take with breakfast or first main meal Quetiapine (Quetiapine Fumarate) 50 Mg Tab 50 Mg PO BID Protonix (Pantoprazole Sodium) 40 Mg Tab 40 Mg PO MWF Metoprolol Tartrate 25 Mg Tab 25 Mg PO BID Valacyclovir (Valacyclovir HCl) 500 Mg Tab 500 Mg PO DAILY Propranolol (Propranolol HCl) 10 Mg Tab 10 Mg PO Q12HR Sertraline (Sertraline HCl) 25 Mg Tab 25 Mg PO DAILY Gabapentin 300 Mg Cap 300 Mg PO HS Active Ordered Medications Current Medications Medications (Trade) Dose Ordered Sig/Courtney Route Start Time Stop Time Status Last Admin (NS Flush) 2 ml UNSCH PRN IV FLUSH 10/06/16 02:15 (Zofran Inj) 4 mg Q6HR PRN IV PUSH 10/06/16 09:00 Pantoprazole Sodium 40 mg 40 mg DAILY PO 10/06/16 09:00 10/06/16 09:22 (Sodium Bicarbonate 8.4% Inj/04/25 NS 1000 ml Inj) 1,100 ml @ 50 mls/hr Q22H IV 10/06/16 09:00 10/06/16 10:23 (Neurontin) 300 mg HS PO 10/06/16 21:00 (Inderal) 10 mg Q12HR PO 10/06/16 09:00 10/06/16 09:22 (Valtrex) 500 mg DAILY PO 10/06/16 09:00 10/06/16 09:22 (SEROquel) 50 mg BID PO 10/06/16 09:00 10/06/16 09:22 (Zoloft) 25 mg DAILY PO 10/06/16 09:00 10/06/16 09:00 (Theragran) 1 tab DAILY PO 10/06/16 10:00 10/06/16 10:00 Family History Noncontributory Social History She denies smoking or alcohol use recently There was history of alcohol use and smoking in the past Physical Exam Vital Signs Vital Signs Date Time Temp Pulse Resp B/P Pulse Ox O2 Delivery O2 Flow Rate FiO2 10/06/16 08:00 97.6 105 20 158/95 96 10/06/16 06:54 95 10/06/16 05:50 107 17 140/84 95 Room Air 10/06/16 04:42 110 18 118/69 95 Room Air 10/06/16 03:55 116 18 114/69 94 Room Air 10/06/16 03:10 112 17 135/70 96 Room Air 10/06/16 02:20 96 Room Air 10/06/16 02:15 98.0 127 20 153/90 95 Physical Exam GENERAL: Well-nourished, well-developed patient. SKIN: Warm and dry. HEAD: Normocephalic. EYES: No scleral icterus. No injection or drainage. NECK: Supple, trachea midline. No JVD or lymphadenopathy. CARDIOVASCULAR: Regular rate and rhythm without murmurs, gallops, or rubs. RESPIRATORY: Breath sounds equal bilaterally. No accessory muscle use. GASTROINTESTINAL: Abdomen soft, non-tender, nondistended. EXTREMITIES: No cyanosis, or edema. NEUROLOGICAL: Awake, alert, and oriented x 3. Non-focal. Laboratory Laboratory Tests Test 10/06/16 10/06/16 10/06/16 10/06/16 02:20 03:35 03:40 04:27 White Blood Count 9.6 Red Blood Count 5.26 Hemoglobin 16.5 Hematocrit 50.7 Mean Corpuscular Volume 96.3 Mean Corpuscular Hemoglobin 31.3 Mean Corpuscular Hemoglobin 32.5 Concent Red Cell Distribution Width 14.4 Platelet Count 142 Mean Platelet Volume 10.3 Neutrophils (%) (Auto) 84.6 Lymphocytes (%) (Auto) 12.4 Monocytes (%) (Auto) 2.3 Eosinophils (%) (Auto) 0.1 Basophils (%) (Auto) 0.6 Neutrophils # (Auto) 8.1 Lymphocytes # (Auto) 1.2 Monocytes # (Auto) 0.2 Eosinophils # (Auto) 0.0 Basophils # (Auto) 0.1 CBC Comment DIFF FINAL Differential Comment Sodium Level 134 Potassium Level 4.5 Chloride Level 95 Carbon Dioxide Level 15.1 Anion Gap 24 Blood Urea Nitrogen 13 Creatinine 0.74 Estimat Glomerular Filtration 80 Rate Random Glucose 189 Calcium Level 9.4 Total Bilirubin 1.8 Aspartate Amino Transf 40 (AST/SGOT) Alanine Aminotransferase 55 (ALT/SGPT) Alkaline Phosphatase 109 Total Protein 10.1 Albumin 4.3 Lipase 104 Ethyl Alcohol Level LESS THAN 3 B-Hydroxybutyrate 10.49 Blood Gas Puncture Site LARM Blood Gas Patient Temperature 98.6 Venous Blood pH 7.24 Venous Blood Partial Pressure 41 CO2 Venous Blood Partial Pressure 31 O2 Venous Blood HCO3 17 Venous Blood Oxygen Saturation 44 Venous Blood Oxygen Content 10.2 Venous Blood Base Excess -8.9 Blood Gas Inspired Oxygen 21 Serum Osmolality 309 Salicylates Level LESS THAN 1.7 Lactic Acid Level 1.7 Test 10/06/16 10/06/16 10/06/1615/17 04:30 05:30 05:40 05:46 Acetaminophen Level LESS THAN 2.0 White Blood Count 9.7 Red Blood Count 4.97 Hemoglobin 15.4 Hematocrit 48.4 Mean Corpuscular Volume 97.5 Mean Corpuscular Hemoglobin 31.0 Mean Corpuscular Hemoglobin 31.8 Concent Red Cell Distribution Width 14.9 Platelet Count 140 Mean Platelet Volume 10.0 Sodium Level 138 Potassium Level 4.0 Chloride Level 101 Carbon Dioxide Level 14.5 Anion Gap 23 Blood Urea Nitrogen 13 Creatinine 0.82 Estimat Glomerular Filtration 71 Rate Random Glucose 215 Serum Osmolality 306 Calcium Level 8.8 Ethyl Alcohol Level LESS THAN 3 Urine Color STRAW Urine Turbidity CLEAR Urine pH 5.5 Urine Specific [place] 1.025 Urine Protein 30 Urine Glucose (UA) 1000 OR GREATER Urine Ketones 80 OR GREATER Urine Occult Blood SMALL Urine Nitrite NEG Urine Bilirubin NEG Urine Leukocyte Esterase NEG Urine RBC 3-5 Urine WBC 0-2 Urine Squamous Epithelial 0-5 Cells Urine Bacteria NONE Microscopic Urinalysis Comment CULT NOT INDICATED Urine Opiates Screen NEG Urine Barbiturates Screen NEG Urine Amphetamines Screen NEG Urine Benzodiazepines Screen POS Urine Cocaine Screen NEG Urine Cannabinoids Screen NEG Blood Gas Puncture Site RT BRACHIAL Blood Gas Patient Temperature 98.6 Blood Gas HCO3 15 Blood Gas Base Excess -10.0 Blood Gas Oxygen Saturation 91 Arterial Blood pH 7.32 Arterial Blood Partial 30 Pressure CO2 Arterial Blood Partial 73 Pressure O2 Arterial Blood Oxygen Content 18.1 Arterial Blood 2.1 Carboxyhemoglobin Arterial Blood Methemoglobin 1.2 Blood Gas Hemoglobin 14.2 Oxygen Delivery Device RA Blood Gas Inspired Oxygen 21 Result Diagram: 10/06/1630 10/06/1630 Imaging Last Impressions Head CT 10/06/16211 Signed Impressions: Service Date/Time: September 02:39 - CONCLUSION: Unremarkable study. Renee Bardales MD Chest X-Ray 10/06/16211 Signed Impressions: Service Date/Time: September 02:26 - CONCLUSION: Right seventh rib fracture. Renee Bardales MD Gall Bladder Ultrasound 10/06/16 0000 Signed Impressions: Service Date/Time: September 05:07 - CONCLUSION: Unremarkable study. Renee Bardales MD Abdomen/Pelvis CT 10/06/16 0000 Signed Impressions: Service Date/Time: September 03:41 - CONCLUSION: Slight fatty liver. Renee Bardales MD Assessment and Plan Problem List: (1) Type 2 DM with ketoacidosis Plan: This is more likely a complication of the use of SGLT-2 inhibitor, and dehydration, it is well documented that these medications can lead to ketoacidosis as a complication, I agree with discontinuation of Jardiance, I discussed with Dr. Winchester, and we can use bicarbonate hydrate her and follow blood work, since she is awake and alert and asymptomatic we can treat her conservatively to see if this resolves with above measures Osmolal gap is likely due to ketoacidosis (2) Hepatitis C Plan: on treatment (3) Nausea and vomiting Plan: continue to monitor Problem Qualifiers (1) Type 2 DM with ketoacidosis: (2) Hepatitis C: Yo Black MD Oct 06, 2016 10:38
[2016-10-06] MEDS: INSULIN ASPART SUPPLEMENTAL SCALE SQ SCH ×3 (11:00→20:51)
[2016-10-06 12:33] LABS: CHLORIDE 104 MEQ/L (98-107); POTASSIUM 3.8 MEQ/L (3.5-5.1); SODIUM (NA) 137 MEQ/L (136-145)
[2016-10-06 13:12] LABS: ALKALINE PHOSPHATASE 77 U/L (45-117); ALT (GPT) 39 U/L (10-53); ANION GAP 9 MEQ/L (5-15); AST (GOT) 18 U/L (15-37); BETA-HYDROXYBUTYRATE 2.63 MMOL/L (0.00-0.39); BICARBONATE 24.1 MEQ/L (21.0-32.0); BLOOD UREA NITROGEN 12 MG/DL (7-18); GLOMERULAR FILTRATION RATE 72 ML/MIN (>89); TOTAL BILIRUBIN ADULT 1.3 MG/DL (0.2-1.0)
--- NOTE | 2016-10-06 15:27 | EKG ---
Date Performed: 10/06/2016 Time Performed: 02:30:06 PTAGE: 61 years EKG: SINUS TACHYCARDIA ABNORMAL RHYTHM ECG Compared to prior tracing no significant change PREVIOUS TRACING : 08/03/2016 22.29 DOCTOR: Matt Pierre Interpretating Date/Time 10/06/2016 15:26:05
[2016-10-06 17:28] LABS: POTASSIUM 3.6 MEQ/L (3.5-5.1)
[2016-10-06 17:31] LABS: BICARBONATE 23.8 MEQ/L (21.0-32.0)
[2016-10-06] MEDS ORDERED: POTASSIUM CHLORIDE 10 MEQ CONTROLLED RELEASE TAB PO ONE (18:45)
[2016-10-06] MEDS ORDERED: GABAPENTIN 300 MG CAP PO SCH (21:00)
[2016-10-06 23:55] LABS: BLOOD GAS CARBOXYHEMOGLOBIN 2.6 % (0-4); BLOOD GAS HCO3 21 mmol/L (22-26); BLOOD GAS METHEMOGLOBIN 1.2 % (0-2); BLOOD GAS O2 HGB SATURATION 94 % (90-100); BLOOD GAS PCO2 33 mmHG (38-42); BLOOD GAS PO2 82 mmHG (61-120); BLOOD GAS TOTAL HGB 13.6 G/DL (12.0-16.0); CRITICAL VALUE NO; DRAW SITE RT RADIAL; FIO2 21 %; NUMBER OF ARTERIAL PUNCTURES 1; STAT NO; TEMP CORR TO 98.6; ULNAR PULSE Y
[2016-10-07] VITALS: BP 145/85; PULSE 85; RESP 18; TEMP 99.3; O2SAT 96
[2016-10-07 04:00] VITALS: BP 133/79; PULSE 85; RESP 16; TEMP 98.6; O2SAT 96
[2016-10-07] MEDS: INSULIN ASPART SUPPLEMENTAL SCALE SQ SCH ×2 (05:31→11:47)
[2016-10-07 06:13] LABS: CHLORIDE 106 MEQ/L (98-107); POTASSIUM 3.7 MEQ/L (3.5-5.1); SODIUM (NA) 142 MEQ/L (136-145)
[2016-10-07 06:17] LABS: ANION GAP 13 MEQ/L (5-15); BICARBONATE 22.8 MEQ/L (21.0-32.0); BLOOD UREA NITROGEN 11 MG/DL (7-18)
[2016-10-07 06:20] LABS: ALT (GPT) 36 U/L (10-53); AST (GOT) 22 U/L (15-37); GLOMERULAR FILTRATION RATE 99 ML/MIN (>89)
[2016-10-07 06:21] LABS: TOTAL BILIRUBIN ADULT 1.6 MG/DL (0.2-1.0)
[2016-10-07 06:23] LABS: ALKALINE PHOSPHATASE 74 U/L (45-117)
[2016-10-07 07:16] VITALS: PULSE 78
--- NOTE | 2016-10-07 07:29 | HHI.PR ---
Subjective Remarks Feeling much better. Tolerating PO well. Good UOP. No more vomiting. Objective Vitals Vital Signs Date Time Temp Pulse Resp B/P Pulse Ox O2 Delivery O2 Flow Rate FiO2 10/07/16 04:00 98.6 85 16 133/79 96 10/07/16 00:00 99.3 85 18 145/85 96 10/06/16 20:30 112 10/06/16 20:25 99.7 87 18 152/90 94 10/06/16 16:00 99.2 93 18 134/79 94 10/06/16 12:00 98.7 93 18 117/69 95 10/06/16 08:00 97.6 105 20 158/95 96 10/06/16 10/06/16 10/07/16 15:00 23:00 07:00 Intake Total 550 ml 550 ml 740 ml Balance 550 ml 550 ml 740 ml Intake Oral 550 ml 550 ml 240 ml IV Total 500 ml # Voids 2 2 # Bowel Movements 1 1 GENERAL: nad, a/o, cooperative and pleasant SKIN: Warm and dry. HEAD: Normocephalic. EYES: No scleral icterus. No injection or drainage. NECK: Supple, trachea midline. No JVD or lymphadenopathy. CARDIOVASCULAR: Regular rate and rhythm without murmurs, gallops, or rubs. RESPIRATORY: Breath sounds equal bilaterally. No accessory muscle use. BS wnl. GASTROINTESTINAL: Abdomen soft, non-tender, nondistended. MUSCULOSKELETAL: No cyanosis, or edema. BACK: Nontender without obvious deformity. No CVA tenderness. Result Diagram: 10/06/16 0530 10/07/16 0520 Imaging Last [address] 10/06/16211 Signed Impressions: Service Date/Time: September 02:39 - CONCLUSION: Unremarkable study. Renee Bardales MD Chest X-Ray 10/06/16211 Signed Impressions: Service Date/Time: September 02:26 - CONCLUSION: Right seventh rib fracture. Renee Bardales MD Gall Bladder Ultrasound 10/06/16 0000 Signed Impressions: Service Date/Time: September 05:07 - CONCLUSION: Unremarkable study. Renee Bardales MD Abdomen/Pelvis CT 10/06/16 0000 Signed Impressions: Service Date/Time: September 03:41 - CONCLUSION: Slight fatty liver. Renee Bardales MD Urinary Catheter: No Vascular Central Line Catheter: No A/P Problem List: (1) Metabolic acidosis Status: Acute Plan: Possibly relative normoglycemic DKA due to Jardiance, dehydration. Much improved. Tolerating oral intake well. Doing overall well. She is a/o, cooperative, ambulating. She declines LONG-TERM or rehab at this point, but understands this may become necessary in future. Will arrange and possible Home Docs. (2) DM (diabetes mellitus) Status: Chronic Plan: We'll discontinue Jardiance. IV fluids have been discontinued. Monitor electrolytes and acid base status. (3) Hepatitis C Status: Chronic Plan: Outpatient treatment with Dr. Torrez (4) Depression Status: Chronic Plan: Resume sertraline and quetiapine Patient denies any suicidal or homicidal ideation. As noted above, patient may need long-term placement in the future. She does not meet mental incapacitation criteria at this point. Since her falls typically occur at night, I will adjust her quetiapine dose. (5) HTN (hypertension) Status: Chronic Plan: Blood pressures overall controlled here. We'll follow. Discharge Planning Possibly discharge home later today. She declines rehabilitation or assisted living facility. Problem Qualifiers (1) DM (diabetes mellitus): (2) Hepatitis C: (3) Depression: (4) HTN (hypertension): Qualified Code: I10 - Essential hypertension Joey Winchester MD PhD Oct 07, 2016 07:29
[2016-10-07] MEDS ORDERED: QUET1TAB7 PO (07:32)
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
[2016-10-07 08:00] VITALS: BP 163/89; PULSE 89; RESP 16; TEMP 98.4; O2SAT 94
[2016-10-07] MEDS: MULTIVITAMIN TAB PO SCH (08:47)
[2016-10-07] MEDS: valACYclovir HCL 500 MG TAB PO SCH (08:47)
[2016-10-07] MEDS: PROPRANOLOL HCL 10 MG TAB PO SCH (08:48)
[2016-10-07] MEDS: SERTRALINE HCL 50 MG TAB PO SCH (08:49)
[2016-10-07] MEDS: PANTOPRAZOLE SOD 40 MG DELAYED RELEASE TAB PO SCH (08:49)
[2016-10-07] MEDS ORDERED: QUEtiapine FUMARATE 25 MG TAB PO SCH (09:00)
--- NOTE | 2016-10-07 09:49 | HHI.FF ---
Face to Face Verification Diagnosis: (1) Type 2 DM with ketoacidosis (2) Major neurocognitive disorder as late effect of traumatic brain injury with behavioral disturbance (3) Fall at home Physical Therapy Order: Evaluate and Treat, Improve ambulation, Strength and gait training Home Health Nursing Order: Medical education Signs/symptoms of disease process Diabetic education Medication education-adverse effect [employer] Order: To Evaluate: Living conditions/environment Order: To Provide: Long range planning I have seen patient Ángel Alvarez on 10/07/16. My clinical findings support the need for the requested home health care services because: Deconditioned w/ increased weakness Med compliance is questionable Limited ability to care for self High risk of falls I certify that my clinical findings support that this patient is homebound because: Unsteady gait/balance Need for psychosocial assistance Joey Winchester MD PhD Oct 07, 2016 09:49
[2016-10-07 11:49] LABS: BICARBONATE 22.5 MEQ/L (21.0-32.0)
[2016-10-07 12:00] VITALS: BP 145/87; PULSE 78; RESP 18; TEMP 98.1; O2SAT 94
== END 2016-10-07 15:11 | disposition home or self-care (01) | DRG 639 ==
LOC: PHED 02:09 → PHEDA 05:34 → PH3B 06:41
PROVIDERS: ADMIT Internal Medicine; ATTEND Internal Medicine
DX: E13.10 Other specified diabetes mellitus with ketoacidosis without coma (principal); K22.70 Barrett's esophagus without dysplasia; I10 Essential (primary) hypertension; B18.2 Chronic viral hepatitis C; E11.42 Type 2 diabetes mellitus with diabetic polyneuropathy; K31.84 Gastroparesis; E11.43 Type 2 diabetes mellitus with diabetic autonomic (poly)neuropathy; F32.9 Major depressive disorder, single episode, unspecified; F41.1 Generalized anxiety disorder; K21.9 Gastro-esophageal reflux disease without esophagitis; F10.10 Alcohol abuse, uncomplicated; Z79.84 Long term (current) use of oral hypoglycemic drugs
CPT/HCPCS: 36600; 70450; 71010; 74176; 76705; 76937; 80048; 80053; 80307; 81001; 82010; 82805; 82948; 83605; 83690; 83930; 84443; 85025; 85027; 93005; 96361; 96365; 96375; J0780; J1815; J3411; J7030; J7042

== ENCOUNTER 2017-08-04 20:23 | Inpatient (IN) | payer OTHER ==
[~2017-08-04] VITALS: Ht 170.2 cm; Wt 65.5 kg
[2017-08-04] MEDS: DEXT 5%-NACL 0.9% 1000 ML INJ 1,000 ML IV SCH (01:20)
[~2017-08-04 20:23] MED LIST changes: -EMPA1TAB3 PO; +QUET1TAB7 PO; -VITA500030 CHEW
--- NOTE | 2017-08-04 20:30 | PD ---
HPI Chief Complaint: GI symptoms Time Seen by Provider: 20:27 Travel History International Travel<30 days: No Contact w/Intl Traveler<30days: No Traveled to known affect area: No History of Present Illness HPI 62-year-old female complains of general malaise and weakness, headache, nausea vomiting. Patient states that the symptoms started several days ago. Patient states the headache is aching headache diffuse over the head. Patient denies any visual change. Patient denies any earaches or sore throat. Patient denies any neck pain. Patient denies any chest pain or shortness of breath. Patient denies abdominal pain. Patient states that she has intermittent nausea vomiting. Patient denies any dysuria frequency. Patient denies any vaginal discharge or bleeding. Patient's diabetic. Patient does not check her blood sugar at home. EMS was called. Patient was given Zofran on the way to the ED. patient has history of hep C . Patient also has history of alcohol abuse, depression, subdural hematoma, hypertension. Patient states that she injured her right big toe about 2 weeks ago and has persistent redness and swelling to the right big toe since then. PFSH Past Medical History Arthritis: No Autoimmune Disease: Yes (hiv) Blood Disorders: No Anxiety: Yes Depression: Yes (pt was hospitalized for drug overdose and suicide attempt in 2017) Cancer: No Cardiovascular Problems: Yes Diabetes: Yes Diminished Hearing: No Endocrine: Yes Gastrointestinal Disorders: Yes (ACID REFLUX ) Glaucoma: No Genitourinary: No Hepatitis: Yes (HEPATITIS C ) Hiatal Hernia: No Hypertension: Yes Immune Disorder: No Implanted Vascular Access Dvce: No Musculoskeletal: No Neurologic: Yes (NEUROPATHY) Psychiatric: Yes (ANXIETY; SITUATIONAL DEPRESSION, psychosis) Reproductive: No Respiratory: No Thyroid Disease: No PNEUMOCCOCAL Vaccine (Year): 2 Menopausal: Yes Tubal Ligation: Yes Past Surgical History Abdominal Surgery: No AICD: No Body Medical Devices: NONE Cardiac Surgery: No Ear Surgery: No Endocrine Surgery: No Eye Surgery: Yes (LEFT/RIGHT CATARACT WITH LENS, UPPER LID BLEPHROPLASTY) Genitourinary Surgery: No Gynecologic Surgery: Yes (TUBAL LIGATION) Joint Replacement: No Neurologic Surgery: Yes (SUBDURAL BLEED WITH SX) Oral Surgery: Yes (T & A) Pacemaker: No Thoracic Surgery: No Tonsillectomy: Yes Other Surgery: Yes Social History Alcohol Use: Yes Tobacco Use: No Substance Use: No Allergies-Medications (Allergen,Severity, Reaction): Coded Allergies: iohexol (Unverified Allergy, Severe, Hives, 12/06/16) date of allergy 06/20/11: facial hives and itching codeine (Unverified Adverse Reaction, Severe, NAUSEA, 12/06/16) *MDRO Multi-Drug Resistant Organism (Verified Adverse Reaction, Unknown, ) MRSA 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 - 08/04/2016 Reported Meds & Prescriptions Reported Meds & Active Scripts Active Quetiapine (Quetiapine Fumarate) 25 Mg Tab 25 Mg PO BID Reported Xanax (Alprazolam) 0.5 Mg Tab 0.5 Mg PO Q4H PRN Propranolol (Propranolol HCl) 10 Mg Tab 10 Mg PO Q12HR Gabapentin 300 Mg Cap 300 Mg PO HS Review of Systems General / Constitutional: No: Fever Eyes: No: Visual changes HENT: Positive: Headaches Cardiovascular: No: Chest Pain or Discomfort Respiratory: Positive: Cough, No: Shortness of Breath Gastrointestinal: Positive: Nausea, Vomiting, No: Abdominal Pain Genitourinary: No: Dysuria Musculoskeletal: No: Pain Skin: No Rash Neurologic: No: Weakness Psychiatric: No: Depression Endocrine: No: Polydipsia Hematologic/Lymphatic: No: Easy Bruising Physical Exam Narrative GENERAL: Well-nourished, well-developed patient. SKIN: Focused skin assessment warm/dry. HEAD: Normocephalic. EYES: No scleral icterus. No injection or drainage. NECK: Supple, trachea midline. No JVD or lymphadenopathy. CARDIOVASCULAR: Mild tachycardia rate and rhythm without murmurs, gallops, or rubs. RESPIRATORY: Breath sounds equal bilaterally. No accessory muscle use. GASTROINTESTINAL: Abdomen soft, non-tender, nondistended. MUSCULOSKELETAL: No cyanosis, or edema. BACK: Nontender without obvious deformity. No CVA tenderness. Neurologic exam normal. Data Data Last Documented VS Vital Signs Date Time Temp Pulse Resp B/P (MAP) Pulse Ox O2 Delivery O2 Flow Rate FiO2 08/04/17 20:36 98 08/04/17 20:33 98.3 125 18 140/65 (90) Orders Orders Complete Blood Count With Diff (08/04/17 20:30) Comprehensive Metabolic Panel (08/04/17 20:30) Lipase (08/04/17 20:30) Urinalysis - C+S If Indicated (08/04/17 20:30) Thyroid Stimulating Hormone (08/04/17 20:30) Influenzae A/B Antigen (08/04/17 20:30) Iv Access Insert/Monitor (08/04/17 20:30) Ecg Monitoring (08/04/17 20:30) Oximetry (08/04/17 20:30) Sodium Chlor 0.9% 1000 Ml Inj (Ns 1000 M (08/04/17 20:45) Toe (Min 2vws) (08/04/17 21:27) Diet Npo (08/05/17 Breakfast) Sodium Chlor 0.9% 1000 Ml Inj (Ns 1000 M (08/04/17 21:49) Dext 5%-Nacl 0.9% 1000 Ml Inj (D5w-Ns 10 (08/04/17 21:49) Insulin Human Regular Inj (Novolin R Inj (08/04/17 22:00) Insulin Regular (Iv Infusion) (Novolin R (08/04/17 22:00) Potassium Chlor 40 Meq Premix (Kcl 40 Me (08/04/17 22:00) Potassium Chlor 40 Meq Premix (Kcl 40 Me (08/04/17 22:00) Potassium Chlor 20 Meq Premix (Kcl 20 Me (08/04/17 22:00) Potassium Chlor 20 Meq Premix (Kcl 20 Me (08/04/17 22:00) Potassium Chlor 20 Meq Premix (Kcl 20 Me (08/04/17 22:00) Potassium Chlor 20 Meq Premix (Kcl 20 Me (08/04/17 22:00) Potassium Chlor 20 Meq Premix (Kcl 20 Me (08/04/17 22:00) Potassium Chlor 20 Meq Premix (Kcl 20 Me (08/04/17 22:00) Sodium Bicarbonate 8.4% Inj (Sodium Bica (08/04/17 22:00) Sodium Bicarbonate 8.4% Inj (Sodium Bica (08/04/17 22:00) Sodium Phosphate Inj (Sodium Phosphate I (08/04/17 22:00) Hemoglobin (Hgb) A1c (08/04/17 21:49) Basic Metabolic Panel (Bmp) (08/05/17 02:49) Basic Metabolic Panel (Bmp) (08/05/17 08:49) Basic Metabolic Panel (Bmp) (08/05/17 14:49) Basic Metabolic Panel (Bmp) (08/05/17 20:49) Magnesium (Mg) (08/05/17 02:49) Magnesium (Mg) (08/05/17 08:49) Magnesium (Mg) (08/05/17 14:49) Magnesium (Mg) (08/05/17 20:49) Phosphorus (Po4) (08/05/17 02:49) Phosphorus (Po4) (08/05/17 08:49) Phosphorus (Po4) (08/05/17 14:49) Phosphorus (Po4) (08/05/17 20:49) Beta Hydroxybutyrate (Acetone) (08/05/17 08:49) Beta Hydroxybutyrate (Acetone) (08/05/17 20:49) Chest, Single Ap (08/04/17 ) Labs Laboratory Tests Test 08/04/17 20:40 White Blood Count 15.4 TH/MM3 Red Blood Count 5.14 MIL/MM3 Hemoglobin 16.5 GM/DL Hematocrit 50.6 % Mean Corpuscular Volume 98.3 FL Mean Corpuscular Hemoglobin 32.2 PG Mean Corpuscular Hemoglobin Concent 32.7 % Red Cell Distribution Width 12.4 % Platelet Count 192 TH/MM3 Mean Platelet Volume 11.4 FL Neutrophils (%) (Auto) 82.6 % Lymphocytes (%) (Auto) 14.0 % Monocytes (%) (Auto) 2.3 % Eosinophils (%) (Auto) 0.1 % Basophils (%) (Auto) 1.0 % Neutrophils # (Auto) 12.6 TH/MM3 Lymphocytes # (Auto) 2.2 TH/MM3 Monocytes # (Auto) 0.4 TH/MM3 Eosinophils # (Auto) 0.0 TH/MM3 Basophils # (Auto) 0.2 TH/MM3 CBC Comment AUTO DIFF Differential Comment AUTO DIFF CONFIRMED Blood Urea Nitrogen 21 MG/DL Creatinine 1.50 MG/DL Random Glucose 300 MG/DL Total Protein 9.9 GM/DL Albumin 4.1 GM/DL Calcium Level 9.3 MG/DL Alkaline Phosphatase 81 U/L Aspartate Amino Transf (AST/SGOT) 22 U/L Alanine Aminotransferase (ALT/SGPT) 36 U/L Total Bilirubin 0.6 MG/DL Sodium Level 134 MEQ/L Potassium Level 4.5 MEQ/L Chloride Level 96 MEQ/L Carbon Dioxide Level 10.1 MEQ/L Anion Gap 28 MEQ/L Estimat Glomerular Filtration Rate 35 ML/MIN Lipase 205 U/L Thyroid Stimulating Hormone 3rd Gen 1.600 uIU/ML MDM Medical Decision Making Medical Screen Exam Complete: Yes Emergency Medical Condition: Yes Interpretation(s) 21:44 PM. CBC WBC 15.4. Hemoglobin 16.5 hematocrit 50.6. 82 neutrophil. Sodium 134. Chloride 96. Bicarb 10.1. Anion gap 28. BUN 21. Creatinine 1.50. GFR 35. Glucose 300. Differential Diagnosis Differential diagnoses including gastroenteritis, viral syndrome, dehydration, electrolyte imbalance, hyperglycemia, DKA. Narrative Course 62-year-old female with headache, coughing congestion, nausea vomiting. History of diabetes. Normal saline solution 1 L IV bolus. Diagnosis Primary Impression: Diabetic ketoacidosis Qualified Codes: E11.10 - Type 2 diabetes mellitus with ketoacidosis without coma Chris Maxwell MD Aug 04, 2017 20:30
[2017-08-04 20:33] VITALS: BP 140/65; PULSE 125; RESP 18; TEMP 98.3; O2SAT 100
[2017-08-04 20:36] VITALS: O2SAT 98
[2017-08-04] MEDS ORDERED: SODIUM CHLOR 0.9% 1000 ML INJ 1,000 ML IV ONE (20:45)
[2017-08-04 21:04] LABS: AUTOMATED NEUTROPHIL # 12.6 TH/MM3 (1.8-7.7); BASOPHIL # 0.2 TH/MM3 (0-0.2); EOSINOPHIL % 0.1 % (0.0-4.0); HEMATOCRIT 50.6 % (35.0-46.0); HEMOGLOBIN 16.5 GM/DL (11.6-15.3); LYMPHOCYTE # 2.2 TH/MM3 (1.0-4.8); MEAN CELL VOLUME 98.3 FL (80.0-100.0); MEAN CORPUSCULAR HEMOGLOBIN 32.2 PG (27.0-34.0); MEAN CORPUSCULAR HGB CONC 32.7 % (32.0-36.0); MEAN PLATELET VOLUME 11.4 FL (7.0-11.0); MONO % 2.3 % (0.0-8.0); MONOCYTE # 0.4 TH/MM3 (0-0.9); NEUT % 82.6 % (16.0-70.0); PLATELET COUNT 192 TH/MM3 (150-450); RED BLOOD COUNT 5.14 MIL/MM3 (4.00-5.30); RED CELL DISTRIBUTION WIDTH 12.4 % (11.6-17.2); WHITE BLOOD COUNT 15.4 TH/MM3 (4.0-11.0)
[2017-08-04] MEDS ORDERED: ALPR.5 PO (21:04)
[2017-08-04 21:12] LABS: CHLORIDE 96 MEQ/L (98-107); SODIUM (NA) 134 MEQ/L (136-145)
[2017-08-04 21:15] LABS: CALCIUM 9.3 MG/DL (8.5-10.1)
[2017-08-04 21:16] LABS: ALBUMIN 4.1 GM/DL (3.4-5.0); BICARBONATE 10.1 MEQ/L (21.0-32.0); BLOOD UREA NITROGEN 21 MG/DL (7-18); GLUCOSE,RANDOM 300 MG/DL (74-106)
[2017-08-04 21:18] LABS: ALT (GPT) 36 U/L (10-53); AST (GOT) 22 U/L (15-37)
[2017-08-04 21:19] LABS: GLOMERULAR FILTRATION RATE 35 ML/MIN (>89)
[2017-08-04 21:20] LABS: TOTAL BILIRUBIN ADULT 0.6 MG/DL (0.2-1.0); TOTAL PROTEIN 9.9 GM/DL (6.4-8.2)
[2017-08-04 21:21] LABS: ALKALINE PHOSPHATASE 81 U/L (45-117)
[2017-08-04 21:30] VITALS: BP 145/83; PULSE 129; RESP 18; TEMP 98.4; O2SAT 100
[2017-08-04] MEDS ORDERED: INSULIN HUMAN REGULAR 1,000 UNITS/10 ML VIAL IV PUSH ONE (22:00)
[2017-08-04] MEDS ORDERED: SODIUM PHOSPHATE INJ 15 MMOL in SODIUM CHLORIDE 0.9% INJ 100 ML IV PRN (22:00)
[2017-08-04] MEDS ORDERED: POTASSIUM CHLOR 40 MEQ PREMIX 100 ML IV PRN ×2 (22:00)
[2017-08-04] MEDS ORDERED: SODIUM BICARBONATE 8.4% SOLN 50 MEQ/50 ML VIAL IV PUSH PRN ×2 (22:00)
[2017-08-04] MEDS ORDERED: POTASSIUM CHLOR 20 MEQ PREMIX 100 ML IV PRN ×6 (22:00)
--- NOTE | 2017-08-04 22:24 | RADRPT ---
EXAM DATE/TIME: 08/04/2017 21:59 [facility] COMPARISON: No previous studies available for comparison. INDICATIONS : Shortness of breath. MEDICAL HISTORY : Neuropathy. Subdural hematoma. Diabetes. Depression. Anxiety. Substance abuse. Alcohol abuse. Gardiner t o feet,Hypertension. Hepatitis C. Gastroesophageal reflux disease. Toxoplasmosis. SURGICAL HISTORY : Tubal ligation. Tonsillectomy. Left frontal karla hole. ENCOUNTER: Initial ACUITY: 1 day PAIN SCORE: 0/10 LOCATION: Bilateral chest FINDINGS: A single view of the chest demonstrates the lungs to be symmetrically aerated without evidence of mas s, infiltrate or effusion. The cardiomediastinal contours are unremarkable. Osseous structures are intact. CONCLUSION: No acute disease. Jensen Rojas MD on August 04, 2017 at 22:22 Board Certified Radiologist. This report was verified electronically.
--- NOTE | 2017-08-04 22:25 | RADRPT ---
EXAM DATE/TIME: 08/04/2017 21:59 [facility] COMPARISON: No previous studies available for comparison. INDICATIONS : Right foot, first digit pain and redness. MEDICAL HISTORY : Hypertension. Hepatitis C. Gastroesophageal reflux disease. Toxoplasmosis, Neuropathy. Subdural hemat lili. Diabetes. Depression. Anxiety. Substance abuse. Alcohol abuse. Gardiner to feet SURGICAL HISTORY : Tubal ligation. Tonsillectomy. Left frontal karla hole. ENCOUNTER: Initial ACUITY: 1 month PAIN SCORE: 8/10 LOCATION: Right foot FINDINGS: Examination of the first digit of the right foot demonstrates no evidence of fracture or dislocation. No radiopaque foreign bodies are seen. The soft tissues are intact. CONCLUSION: 1. No acute bony abnormality. Jensen Rojas MD on August 04, 2017 at 22:22 Board Certified Radiologist. This report was verified electronically.
[2017-08-04] MEDS: SODIUM CHLOR 0.9% 1000 ML INJ 1,000 ML IV SCH (22:37)
[2017-08-04] MEDS: INSULIN REGULAR (IV INFUSION) 100 UNITS in SODIUM CHLORIDE 0.9% INJ 99 ML IV PRN (22:38)
[2017-08-04] MEDS ORDERED: ONDANSETRON HCL 4 MG/2 ML VIAL ONE (22:51)
[2017-08-04] MEDS ORDERED: ONDANSETRON HCL 4 MG/2 ML VIAL IV PUSH ONE (23:00)
[2017-08-04 23:27] VITALS: BP 147/88; TEMP 98.4
[2017-08-04 23:41] LABS: BLOOD, URINE TRACE (NEG); GLUCOSE,URINE 1000 OR GREATER mg/dL (NEG); KETONE, URINE 80 OR GREATER mg/dL (NEG); NITRITE,URINE NEG (NEG); URINE COLOR YELLOW (YELLW/STRAW); URINE LEUKOCYTE ESTERASE NEG (NEG)
[2017-08-04 23:43] LABS: BILIRUBIN, URINE NEG (NEG)
[2017-08-04 23:46] LABS: BACTERIA, URINE OCC /hpf; RBC, URINE 0-3 /hpf (0-3)
[2017-08-05] VITALS (16 sets, daily range): BP systolic 100–171; BP diastolic 56–109; PULSE 91–135; RESP 20–23; TEMP 97.7–98.8; O2SAT 93–98
[2017-08-05] MEDS ORDERED: CHLORHEXIDINE GLUCONATE 2 % 1 PACK (2 CLOTHS)(extra cloths) TOPICAL PRN (00:15)
[2017-08-05] MEDS: DEXT 5%-NACL 0.9% 1000 ML INJ 1,000 ML IV SCH ×2 (01:20→06:15)
[2017-08-05] MEDS: SODIUM CHLOR 0.9% 1000 ML INJ 1,000 ML IV SCH ×2 (01:49→05:07)
[2017-08-05] MEDS: CHLORHEXIDINE GLUCONATE 2 % 1 PACK (2 CLOTHS)(taper/protocol) TOPICAL SCH (04:00)
[2017-08-05 06:17] LABS: BICARBONATE 9.4 MEQ/L (21.0-32.0); CALCIUM 8.9 MG/DL (8.5-10.1); CREATININE 1.35 MG/DL (0.50-1.00); MAGNESIUM 2.4 MG/DL (1.5-2.5); PHOSPHORUS 2.3 MG/DL (2.5-4.9)
[2017-08-05] MEDS: PROPRANOLOL HCL 10 MG TAB PO SCH ×2 (07:05→20:23)
[2017-08-05] MEDS: QUEtiapine FUMARATE 25 MG TAB PO SCH ×2 (07:05→20:23)
[2017-08-05] MEDS: ALPRAZolam 0.5 MG TAB PO PRN ×3 (07:05→20:23)
--- NOTE | 2017-08-05 07:46 | HHI.HP ---
HPI Service [facility] Hospitalists Primary Care Physician Harjit Lebron MD Admission Diagnosis Diabetic ketoacidosis Chief Complaint: n,v, fatigue Travel History International Travel<30 Days: No Contact w/Intl Traveler <30 Da: No Traveled to Known Affected Are: No History of Present Illness 62-year-old female with diabetes who is known to me from previous admission presents to the ER with 3 day history of nausea vomiting and increased weakness at home. She reports that she felt a little ill approximately a week ago but did not want to alarm her daughter who was leaving to go back home to [place]. This past Monday however she started vomiting and has had multiple episodes of vomiting since that point. She has not been able to keep much fluid down at home. It is noted that she reportedly resumed her Jardiance approximately 2 weeks ago. She denies any fevers or chills. She has had slight intermittent headache. Denies any neck pain or vision change. No recent foreign travel or unusual foods. No new herbals or other medication that are unusual for her. Denies any dysuria or hematuria. Denies any cough or hemoptysis. She does note that her emesis has been somewhat dark. She denies any diarrhea and actually reports that she has been somewhat constipated over the last 4 weeks. On eval in ER her labs were consistent with diabetic ketoacidosis which is a recurrent problem for her. She has been started on the DKA protocol and was transferred to the intensive care unit. She is currently alert and awake. Her biggest complaint now is that she is thirsty and would like more water. She does continue to have nausea vomiting. She has remained somewhat tachycardic overnight as well. Review of Systems Constitutional: COMPLAINS OF: Diaphoretic episodes, Fatigue, Chills, Change in appetite, DENIES: Fever, Weight gain, Weight loss, Dizziness, Night Sweats Eyes: DENIES: Blurred vision, Diplopia, Eye inflammation, Eye pain, Vision loss , Photosensitivity, Double Vision Ears, nose, mouth, throat: DENIES: Tinnitus, Hearing loss, Vertigo, Nasal discharge, Oral lesions, Throat pain, Hoarseness, Ear Pain, Running Nose, Epistaxis, Sinus Pain, Toothache, Odynophagia Respiratory: DENIES: Apneas, Cough, Snoring, Wheezing, Hemoptysis, Sputum production, Shortness of breath Cardiovascular: DENIES: Chest pain, Palpitations, Syncope, Dyspnea on Exertion , PND, Lower Extremity Edema, Orthopnea, Claudication Gastrointestinal: COMPLAINS OF: Abdominal pain, Constipation, GERD, Nausea, Vomiting, DENIES: Black stools, Bloody stools, BRB per rectum, Diarrhea, Reflux , Difficulty Swallowing, Anorexia, See HPI Musculoskeletal: COMPLAINS OF: Joint pain Integumentary: DENIES: Abnormal pigmentation, Pruritus, Rash, Nail changes, Breast masses, Breast skin changes, Nipple discharge Hematologic/lymphatic: DENIES: Bruising, Lymphadenopathy Immunologic/allergic: DENIES: Eczema, Urticaria Neurologic: DENIES: Abnormal gait, Headache, Localized weakness, Paresthesias, Seizures, Speech Problems, Tremor, Poor Balance Psychiatric: COMPLAINS OF: Anxiety, DENIES: Confusion, Mood changes, Depression , Hallucinations, Agitation, Suicidal Ideation, Homicidal Ideation, Delusions, History of Bipolar, History of Schizophrenia Past Family Social History Past Medical History GERD Generalized anxiety disorder White's esophagus Chronic viral hepatitis C Major depressive disorder Type 2 diabetes with peripheral neuropathy Diabetic ketoacidosis exacerbation summer 2016 Gastroparesis Hypertension Polyclonal gammopathy History of hospitalization for reported suicide attempt although patient denies this was a suicide attempt that she was trying to get out of the situation at home with the "caregiver" Subdural hematoma from a fall in April 2016 Past Surgical History Cataract surgery bilaterally in 2014 Hemorrhoidectomy Tonsillectomy History of tubal ligation History of percutaneous liver biopsy Ariana hole placement April 2016 EGD done in August 2014 demonstrated some esophagitis; colonoscopy done same time demonstrated a couple of sessile polypoid suggested repeat in 2019. Reported Medications Home medications attempted to be reviewed with patient however it is unclear what she is actually been taken due to her nausea vomiting. Below list is most updated list from outpatient EMR reviewed. Xanax 0.5 mg 4 times daily as needed anxiety Gabapentin 300 mg twice daily Lantus 50 units twice daily Propranolol 10 mg twice daily Quetiapine 25 mg twice daily Patient reports she has been also taken Jardiance 25 mg a day that she had previously stopped. Allergies: Coded Allergies: iohexol (Unverified Allergy, Severe, Hives, 12/06/16) date of allergy 06/20/11: facial hives and itching codeine (Unverified Adverse Reaction, Severe, NAUSEA, 12/06/16) *MDRO Multi-Drug Resistant Organism (Verified Adverse Reaction, Unknown, ) MRSA 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 - 08/04/2016 Family History Diabetes in several family members but otherwise noncontributory Social History No tobacco in approximately 8 years prior to that smoked somewhat sparingly for 20 years Long history of alcohol abuse starting at age 19 but states that she has not been drinking any alcohol in the last 8 weeks. Lives alone currently, but had caregivers in the home at times. Her daughter who lives in [place] had actually stayed with her for the last 5 weeks but recently left to return home. 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 Alert and oriented. Cooperative with exam. SKIN: Few areas of purpura on forearms. Xerotic. HEAD: Atraumatic. Normocephalic. No temporal or scalp tenderness. EYES: Pupils equal round and reactive. Extraocular motions intact. No scleral icterus. No injection or drainage. ENT: Nose without bleeding, purulent drainage or septal hematoma. Airway patent. NECK: Trachea midline. No JVD or lymphadenopathy. Supple, nontender, no meningeal signs. CARDIOVASCULAR: Regular rate and rhythm with heart rate in 120s on my exam. No murmurs, gallops, or rubs. RESPIRATORY: Clear to auscultation. Breath sounds equal bilaterally. No wheezes , rales, or rhonchi. GASTROINTESTINAL: Abdomen soft, nondistended. Mild tenderness global palpation. No guarding or rebound. No hepato-splenomegaly, or palpable masses. MUSCULOSKELETAL: Extremities without clubbing, cyanosis, or edema. No joint tenderness, effusion, or edema noted. No calf tenderness. NEUROLOGICAL: Awake and alert. Cranial nerves II through XII intact. Motor and sensory grossly within normal limits. Five out of 5 muscle strength in all muscle groups. Normal speech. Laboratory Laboratory Tests Test 08/04/17 20:40 08/04/17 22:30 08/04/17 22:42 08/05/17 00:15 White Blood Count 15.4 Red Blood Count 5.14 Hemoglobin 16.5 Hematocrit 50.6 Mean Corpuscular Volume 98.3 Mean Corpuscular Hemoglobin 32.2 Mean Corpuscular Hemoglobin Concent 32.7 Red Cell Distribution Width 12.4 Platelet Count 192 Mean Platelet Volume 11.4 Neutrophils (%) (Auto) 82.6 Lymphocytes (%) (Auto) 14.0 Monocytes (%) (Auto) 2.3 Eosinophils (%) (Auto) 0.1 Basophils (%) (Auto) 1.0 Neutrophils # (Auto) 12.6 Lymphocytes # (Auto) 2.2 Monocytes # (Auto) 0.4 Eosinophils # (Auto) 0.0 Basophils # (Auto) 0.2 CBC Comment AUTO DIFF Differential Comment AUTO DIFF CONFIRMED Blood Urea Nitrogen 21 Creatinine 1.50 Random Glucose 300 Total Protein 9.9 Albumin 4.1 Calcium Level 9.3 Alkaline Phosphatase 81 Aspartate Amino Transf (AST/SGOT) 22 Alanine Aminotransferase (ALT/SGPT) 36 Total Bilirubin 0.6 Sodium Level 134 Potassium Level 4.5 Chloride Level 96 Carbon Dioxide Level 10.1 Anion Gap 28 Estimat Glomerular Filtration Rate 35 Lipase 205 Thyroid Stimulating Hormone 3rd Gen 1.600 Urine Color YELLOW Urine Turbidity CLEAR Urine pH 5.0 Urine Specific [place] GREATER/EQUAL 1.030 Urine Protein 30 Urine Glucose (UA) 1000 OR GREATER Urine Ketones 80 OR GREATER Urine Occult Blood TRACE Urine Nitrite NEG Urine Bilirubin NEG Urine Urobilinogen 0.2 Urine Leukocyte Esterase NEG Urine RBC 0-3 Urine WBC 3-5 Urine Squamous Epithelial Cells 6-8 Urine Bacteria OCC Microscopic Urinalysis Comment CULT NOT INDICATED Blood Gas Puncture Site RT ARM Blood Gas Patient Temperature 98.6 Venous Blood pH 7.06 Venous Blood Partial Pressure CO2 26 Venous Blood Partial Pressure O2 38 Venous Blood HCO3 7 Venous Blood Oxygen Saturation 59 Venous Blood Oxygen Content 14.5 Venous Blood Base Excess -21.4 Oxygen Delivery Device ROOM AIR Blood Gas Inspired Oxygen 21 Nasal Screen MRSA (PCR) MRSA DETECTED Test 08/05/17 05:18 Blood Urea Nitrogen 20 Creatinine 1.35 Random Glucose 208 Calcium Level 8.9 Phosphorus Level 2.3 Magnesium Level 2.4 Sodium Level 140 Potassium Level 4.8 Chloride Level 109 Carbon Dioxide Level 9.4 Anion Gap 22 Estimat Glomerular Filtration Rate 40 Date/Time Source Procedure Growth Status 08/04/17 20:40 Nasal Washing Influenza Types A,B Antigen (ANGELIKA) - Final NEGATIVE FOR FLU A AND B ANTIGEN.... Complete Result Diagram: 08/04/17203908/05/17 0518 Imaging Last 72 hours Impressions Toe X-Ray 08/04/177 Signed Impressions: Service Date/Time: Friday, August 04, 2017 21:59 - CONCLUSION: 1. No acute bony abnormality. Jensen Rojas MD Chest X-Ray 08/04/17 0000 Signed Impressions: Service Date/Time: Friday, August 04, 2017 21:59 - CONCLUSION: No acute disease. Jensen Rojas MD Caprini VTE Risk Assessment Caprini VTE Risk Assessment: Mod/High Risk (score >= 2) Caprini Risk Assessment Model Point Value = 1 Point Value = 2 Point Value = 3 Point Value = 5 Age 41-60 Minor surgery BMI > 25 kg/m2 Swollen legs Varicose veins or History of unexplained or recurrent spontaneous Oral contraceptives or hormone replacement Sepsis (< 1 month) Serious lung disease, including pneumonia (< 1 month) Abnormal pulmonary function Acute myocardial infarction Congestive heart failure (< 1 month) History of inflammatory bowel disease Medical patient at bed rest Age 61-74 Arthroscopic surgery Major open surgery (> 45 min) Laparoscopic surgery (> 45 min) Malignancy Confined to bed (> 72 hours) Immobilizing plaster cast Central venous access Age >= 75 History of VTE Family history of VTE Factor V Leiden Prothrombin [id number] Lupus anticoagulant Anticardiolipin antibodies Elevated serum homocysteine Heparin-induced thrombocytopenia Other congenital or acquired thrombophilia Stroke (< 1 month) Elective arthroplasty Hip, pelvis, or leg fracture Acute spinal cord injury (< 1 month) Prophylaxis Regimen Total Risk Factor Score Risk Level Prophylaxis Regimen 0-1 Low Early ambulation 2 Moderate Order ONE of the following: *Sequential Compression Device (SCD) *Heparin 5000 units SQ BID 3-4 Higher Order ONE of the following medications: *Heparin 5000 units SQ TID *Enoxaparin/Lovenox 40 mg SQ daily (WT < 150 kg, CrCl > 30 mL/min) *Enoxaparin/Lovenox 30 mg SQ daily (WT < 150 kg, CrCl > 10-29 mL/min) *Enoxaparin/Lovenox 30 mg SQ BID (WT < 150 kg, CrCl > 30 mL/min) AND/OR *Sequential Compression Device (SCD) 5 or more Highest Order ONE of the following medications: *Heparin 5000 units SQ TID (Preferred with Epidurals) *Enoxaparin/Lovenox 40 mg SQ daily (WT < 150 kg, CrCl > 30 mL/min) *Enoxaparin/Lovenox 30 mg SQ daily (WT < 150 kg, CrCl > 10-29 mL/min) *Enoxaparin/Lovenox 30 mg SQ BID (WT < 150 kg, CrCl > 30 mL/min) AND *Sequential Compression Device (SCD) Assessment and Plan Problem List: (1) Type 2 DM with ketoacidosis ICD Codes: E13.10 - Other specified diabetes mellitus with ketoacidosis without coma Status: Acute Plan: Blood sugars improving. Anion gap still above 20 with bicarb around 9. We will add bicarb to fluids if not improving with next blood draw. Continue DKA protocol. (2) Nausea and vomiting ICD Codes: R11.2 - Nausea with vomiting, unspecified Status: Acute Plan: Emesis appear somewhat bilious on exam. Hemoglobin is fine. We will recheck. Provide Compazine for breakthrough vomiting in addition to Zofran. Patient reports she has been constipated for a few weeks. We will provide milk of mag as tolerated. (3) HTN (hypertension) ICD Codes: I10 - Essential (primary) hypertension Status: Chronic Plan: BP a bit elevated on exam. Will resume medication. She has been unable to keep some meds down of late due to nausea vomiting she reports (4) Depression ICD Codes: F32.9 - Major depressive disorder, single episode, unspecified Status: Chronic Plan: Continue medication. She has chronic underlying anxiety as well. (5) Anxiety ICD Codes: F41.9 - Anxiety disorder, unspecified Status: Chronic Plan: As above. Code Status full Discussed Condition With Patient, nurse and ER provider. Physician Certification 2 Midnight Certification Type: Admission for Inpatient Services Order for Inpatient Services The services are ordered in accordance with Medicare regulations or non- Medicare payer requirements, as applicable. In the case of services not specified as inpatient-only, they are appropriately provided as inpatient services in accordance with the 2-midnight benchmark. Estimated LOS (days): 3 days is the estimated time the patient will need to remain in the hospital, assuming treatment plan goals are met and no additional complications. Post-Hospital Plan: Not yet determined Problem Qualifiers (1) HTN (hypertension): Qualified Codes: I10 - Essential (primary) hypertension (2) Depression: Joey Winchester MD PhD Aug 05, 2017 07:46
[2017-08-05] MEDS ORDERED: PROCHLORPERAZINE INJ 10 MG/2 ML VIAL IV PUSH PRN (08:00)
[2017-08-05] MEDS ORDERED: MAGNESIUM HYDROXIDE SUSP 30 ML CUP PO ONE (08:00)
[2017-08-05] MEDS ORDERED: CALCIUM CARBONATE 500 MG CHEWABLE TAB CHEW ONE (08:00)
[2017-08-05] MEDS: PANTOPRAZOLE SODIUM 40 MG VIAL IV PUSH SCH (08:31)
[2017-08-05] MEDS ORDERED: DEXTROSE 50% IN WATER 50 ML VIAL(D50) IV PUSH PRN (10:15)
[2017-08-05] MEDS ORDERED: GLUCAGON 1 MG/ML VIAL OTHER PRN (10:15)
[2017-08-05 10:26] LABS: BASOPHIL % 0.1 % (0.0-2.0); HEMATOCRIT 44.6 % (35.0-46.0); LYMPH % 16.1 % (9.0-44.0); LYMPHOCYTE # 1.9 TH/MM3 (1.0-4.8); MEAN CELL VOLUME 97.5 FL (80.0-100.0); MEAN CORPUSCULAR HEMOGLOBIN 32.7 PG (27.0-34.0); MEAN CORPUSCULAR HGB CONC 33.6 % (32.0-36.0); MEAN PLATELET VOLUME 9.3 FL (7.0-11.0); MONO % 8.3 % (0.0-8.0); NEUT % 75.5 % (16.0-70.0); PLATELET COUNT 146 TH/MM3 (150-450); RED BLOOD COUNT 4.58 MIL/MM3 (4.00-5.30); RED CELL DISTRIBUTION WIDTH 13.1 % (11.6-17.2); WHITE BLOOD COUNT 11.9 TH/MM3 (4.0-11.0)
[2017-08-05 11:04] LABS: BICARBONATE 18.9 MEQ/L (21.0-32.0); BLOOD UREA NITROGEN 16 MG/DL (7-18); CALCIUM 8.7 MG/DL (8.5-10.1); CHLORIDE 116 MEQ/L (98-107); CREATININE 1.42 MG/DL (0.50-1.00); GLOMERULAR FILTRATION RATE 37 ML/MIN (>89); GLUCOSE,RANDOM 201 MG/DL (74-106); MAGNESIUM 2.2 MG/DL (1.5-2.5); PHOSPHORUS 0.5 MG/DL (2.5-4.9); SODIUM (NA) 145 MEQ/L (136-145)
[2017-08-05] MEDS: INSULIN REGULAR (IV INFUSION) 100 UNITS in SODIUM CHLORIDE 0.9% INJ 99 ML IV PRN (11:25)
[2017-08-05] MEDS ORDERED: POTASSIUM PHOSPHATE MONOBASIC 500 MG TAB PO PRN (12:00)
[2017-08-05] MEDS: INSULIN ASPART SUPPLEMENTAL SCALE SQ SCH ×3 (12:53→20:24)
[2017-08-05] MEDS: NS + KCL 20 MEQ INJ 1,000 ML IV SCH (12:53)
[2017-08-05] MEDS: LABETALOL HCL 100 MG/20 ML VIAL IV PUSH PRN (16:24)
--- NOTE | 2017-08-05 17:51 | HHI.PR ---
Subjective Remarks Patient fells thirsty no other complaints reports N/V improving Objective Vitals Vital Signs Date Time Temp Pulse Resp B/P (MAP) Pulse Ox O2 Delivery O2 Flow Rate FiO2 08/05/17 16:00 102 08/05/17 15:00 97.8 95 22 142/72 (95) 98 08/05/17 14:00 102 08/05/17 12:00 103 08/05/17 11:00 98.0 103 22 154/72 (99) 98 08/05/17 10:00 128 08/05/17 08:02 128 08/05/17 08:00 98.0 94 22 124/68 (86) 98 08/05/17 07:58 128 08/05/17 02:00 128 08/05/17 00:12 97.7 135 20 145/109 (121) 93 08/04/17 23:27 98.4 130 18 147/88 (107) 98 08/04/17 21:30 98.4 129 18 145/83 (103) 100 Room Air 08/04/17 20:36 98 08/04/17 20:33 98.3 125 18 140/65 (90) 100 08/05/17 08/05/17 08/06/17 15:00 23:00 07:00 Intake Total 1050 ml Balance 1050 ml Intake IV Total 1050 ml Result Diagram: 08/05/17 1013 08/05/17 1013 Other Results Laboratory Tests Test 08/04/17 20:40 08/04/17 22:30 08/04/17 22:42 08/05/17 00:15 White Blood Count 15.4 TH/MM3 Red Blood Count 5.14 MIL/MM3 Hemoglobin 16.5 GM/DL Hematocrit 50.6 % Mean Corpuscular Volume 98.3 FL Mean Corpuscular Hemoglobin 32.2 PG Mean Corpuscular Hemoglobin Concent 32.7 % Red Cell Distribution Width 12.4 % Platelet Count 192 TH/MM3 Mean Platelet Volume 11.4 FL Neutrophils (%) (Auto) 82.6 % Lymphocytes (%) (Auto) 14.0 % Monocytes (%) (Auto) 2.3 % Eosinophils (%) (Auto) 0.1 % Basophils (%) (Auto) 1.0 % Neutrophils # (Auto) 12.6 TH/MM3 Lymphocytes # (Auto) 2.2 TH/MM3 Monocytes # (Auto) 0.4 TH/MM3 Eosinophils # (Auto) 0.0 TH/MM3 Basophils # (Auto) 0.2 TH/MM3 CBC Comment AUTO DIFF Differential Comment AUTO DIFF CONFIRMED Blood Urea Nitrogen 21 MG/DL Creatinine 1.50 MG/DL Random Glucose 300 MG/DL Total Protein 9.9 GM/DL Albumin 4.1 GM/DL Calcium Level 9.3 MG/DL Alkaline Phosphatase 81 U/L Aspartate Amino Transf (AST/SGOT) 22 U/L Alanine Aminotransferase (ALT/SGPT) 36 U/L Total Bilirubin 0.6 MG/DL Sodium Level 134 MEQ/L Potassium Level 4.5 MEQ/L Chloride Level 96 MEQ/L Carbon Dioxide Level 10.1 MEQ/L Anion Gap 28 MEQ/L Estimat Glomerular Filtration Rate 35 ML/MIN Lipase 205 U/L Thyroid Stimulating Hormone 3rd Gen 1.600 uIU/ML Urine Color YELLOW Urine Turbidity CLEAR Urine pH 5.0 Urine Specific [place] GREATER/EQUAL 1.030 Urine Protein 30 mg/dL Urine Glucose (UA) 1000 OR GREATER mg/dL Urine Ketones 80 OR GREATER mg/dL Urine Occult Blood TRACE Urine Nitrite NEG Urine Bilirubin NEG Urine Urobilinogen 0.2 MG/DL Urine Leukocyte Esterase NEG Urine RBC 0-3 /hpf Urine WBC 3-5 /hpf Urine Squamous Epithelial Cells 6-8 /hpf Urine Bacteria OCC /hpf Microscopic Urinalysis Comment CULT NOT INDICATED Blood Gas Puncture Site RT ARM Blood Gas Patient Temperature 98.6 Venous Blood pH 7.06 Venous Blood Partial Pressure CO2 26 mmHg Venous Blood Partial Pressure O2 38 mmHg Venous Blood HCO3 7 mmol/L Venous Blood Oxygen Saturation 59 % Venous Blood Oxygen Content 14.5 Vol % Venous Blood Base Excess -21.4 mmol/L Oxygen Delivery Device ROOM AIR Blood Gas Inspired Oxygen 21 % Nasal Screen MRSA (PCR) MRSA DETECTED Test 08/05/17 05:18 08/05/17 08:39 08/05/17 10:13 08/05/17 14:19 Blood Urea Nitrogen 20 MG/DL MG/DL 16 MG/DL Creatinine 1.35 MG/DL MG/DL 1.42 MG/DL Random Glucose 208 MG/DL MG/DL 201 MG/DL Calcium Level 8.9 MG/DL MG/DL 8.7 MG/DL Phosphorus Level 2.3 MG/DL MG/DL 0.5 MG/DL Magnesium Level 2.4 MG/DL MG/DL 2.2 MG/DL Sodium Level 140 MEQ/L MEQ/L 145 MEQ/L Potassium Level 4.8 MEQ/L MEQ/L 3.6 MEQ/L Chloride Level 109 MEQ/L MEQ/L 116 MEQ/L Carbon Dioxide Level 9.4 MEQ/L MEQ/L 18.9 MEQ/L Anion Gap 22 MEQ/L MEQ/L 10 MEQ/L Estimat Glomerular Filtration Rate 40 ML/MIN ML/MIN 37 ML/MIN Hemoglobin A1c % B-Hydroxybutyrate MMOL/L 2.46 MMOL/L 5.32 MMOL/L White Blood Count 11.9 TH/MM3 Red Blood Count 4.58 MIL/MM3 Hemoglobin 15.0 GM/DL Hematocrit 44.6 % Mean Corpuscular Volume 97.5 FL Mean Corpuscular Hemoglobin 32.7 PG Mean Corpuscular Hemoglobin Concent 33.6 % Red Cell Distribution Width 13.1 % Platelet Count 146 TH/MM3 Mean Platelet Volume 9.3 FL Neutrophils (%) (Auto) 75.5 % Lymphocytes (%) (Auto) 16.1 % Monocytes (%) (Auto) 8.3 % Eosinophils (%) (Auto) 0.0 % Basophils (%) (Auto) 0.1 % Neutrophils # (Auto) 9.0 TH/MM3 Lymphocytes # (Auto) 1.9 TH/MM3 Monocytes # (Auto) 1.0 TH/MM3 Eosinophils # (Auto) 0.0 TH/MM3 Basophils # (Auto) 0.0 TH/MM3 CBC Comment DIFF FINAL Differential Comment Imaging Last 72 hours Impressions Toe X-Ray [id number]/04/[id number] Signed Impressions: Service Date/Time: Friday, August 04, 2017 21:59 - CONCLUSION: 1. No acute bony abnormality. Jensen Rojas MD Chest X-Ray 08/04/17 0000 Signed Impressions: Service Date/Time: Friday, August 04, 2017 21:59 - CONCLUSION: No acute disease. Jensen Rojas MD Objective Remarks GENERAL: This is a well-nourished, well-developed patient, in no apparent distress. CARDIOVASCULAR: Regular rate and rhythm RESPIRATORY: Clear to auscultation. Breath sounds equal bilaterally. GASTROINTESTINAL: Abdomen soft, tender right side, nondistended. Normal active bowel sounds MUSCULOSKELETAL: Extremities without clubbing, cyanosis, or edema. NEURO: Alert & Oriented. Moves all ext x4 A/P Problem List: (1) Type 2 DM with ketoacidosis ICD Codes: E13.10 - Other specified diabetes mellitus with ketoacidosis without coma Status: Acute Plan: Anion gap closed. Stop DKA protocol, give Levemir 7 units now Repeat BMP now Start Levemir 15 units QHS accu checks ACHS with high dose SSI coverage (2) Nausea and vomiting ICD Codes: R11.2 - Nausea with vomiting, unspecified Status: Acute Plan: Emesis resolving continue to Provide Compazine for breakthrough vomiting in addition to Zofran if needed Patient reports she has been constipated for a few weeks. milk of mag given this AM CT abd/pelvis ordered this AM not yet done (3) HTN (hypertension) ICD Codes: I10 - Essential (primary) hypertension Status: Chronic Plan: BP a bit elevated initially resume home Propranolol 10 mg PO BID BP and HR improving (4) Depression ICD Codes: F32.9 - Major depressive disorder, single episode, unspecified Status: Chronic Plan: Continue home medication. She has chronic underlying anxiety as well. (5) Anxiety ICD Codes: F41.9 - Anxiety disorder, unspecified Status: Chronic Plan: As above. Assessment and Plan Patient examined. Assessment and plan formulated with Sirisha Nguyen PA-C. I agree with the above. Pt clinically improving. Repeat BMP this evening and in the AM. start Levemir start SSI Problem Qualifiers (1) HTN (hypertension): Qualified Codes: I10 - Essential (primary) hypertension (2) Depression: Sirisha Nguyen Aug 05, 2017 17:51 Gavin Gusman DO Aug 06, 2017 16:08
[2017-08-05 20:08] LABS: BICARBONATE 18.7 MEQ/L (21.0-32.0); CALCIUM 8.7 MG/DL (8.5-10.1); CREATININE 1.2 MG/DL (0.50-1.00)
[2017-08-05] MEDS: GABAPENTIN 300 MG CAP PO SCH (20:23)
[2017-08-05] MEDS: INSULIN DETEMIR 100 UNITS/ML VIAL SQ SCH (20:24)
[2017-08-05] MEDS ORDERED: INSULIN DETEMIR 100 UNITS/ML VIAL SQ SCH ×2 (21:00)
[2017-08-05] MEDS ORDERED: POTASSIUM CHLORIDE 20 MEQ CONTROLLED RELEASE TAB PO ONE (21:00)
--- NOTE | 2017-08-05 23:59 | RADRPT ---
EXAM DATE/TIME: 08/05/2017 23:26 [place] COMPARISON: CT ABDOMEN & PELVIS W/O CONTRAST, October 06, 2016, 3:41. INDICATIONS : Abdominal pain with nausea and vomiting. ORAL CONTRAST: No oral contrast ingested. RADIATION DOSE: 6.54 CTDIvol (mGy) MEDICAL HISTORY : Cardiovascular disease. Hypertension. Gastroesophageal reflux disease.Hep C, Diabetes SURGICAL HISTORY : Craniotomy. Tubal ligation. ENCOUNTER: Initial ACUITY: 1 day PAIN SCALE: 6/10 LOCATION: abdomen TECHNIQUE: Volumetric scanning of the abdomen and pelvis was performed. Using automated exposure control and ad justment of the mA and/or kV according to patient size, radiation dose was kept as low as reasonably achievable to obtain optimal diagnostic quality images. DICOM format image data is available electro nically for review and comparison. FINDINGS: There is minimal atelectasis in both bases. The gallbladder and pancreas are unremarkable. No intrahe patic or extrahepatic ductal dilatation is seen. The adrenal glands and kidneys appear normal bilater ally. No hydronephrosis or mass lesions are identified. Examination of the right lower quadrant demon strates no abnormality. The appendix is identified and appears normal. There is a prominent bladder distention and Potts catheter placed and should be considered. No adnexa l masses are identified. No free fluid is identified. CONCLUSION: 1. No evidence of acute abdominal or pelvic process. No masses are identified. 2. Bladder distention Shemar Ba MD on August 05, 2017 at 23:52 Board Certified Radiologist. This report was verified electronically.
[2017-08-06] VITALS (16 sets, daily range): BP systolic 129–173; BP diastolic 67–95; PULSE 84–100; RESP 17–20; TEMP 97.5–98.6; O2SAT 98–100
[2017-08-06 02:03] LABS: BILIRUBIN, URINE NEG (NEG); BLOOD, URINE TRACE (NEG); GLUCOSE,URINE 1000 mg/dL (NEG); KETONE, URINE 80 mg/dL (NEG); MUCUS URINE FEW /lpf (OCC); NITRITE,URINE NEG (NEG); PH, URINE 5.5 (5.0-8.5); SQUAMOUS EPITHELIAL CELL URINE 1 /hpf (0-5); URINE COLOR LIGHT-YELLOW (YELLW/STRAW); URINE LEUKOCYTE ESTERASE NEG (NEG)
[2017-08-06] MEDS: NS + KCL 20 MEQ INJ 1,000 ML IV SCH (03:18)
[2017-08-06] MEDS: CHLORHEXIDINE GLUCONATE 2 % 1 PACK (2 CLOTHS)(taper/protocol) TOPICAL SCH ×2 (04:00→23:50)
[2017-08-06] MEDS: ALPRAZolam 0.5 MG TAB PO PRN ×3 (05:04→17:06)
[2017-08-06] MEDS: LABETALOL HCL 100 MG/20 ML VIAL IV PUSH PRN (05:07)
[2017-08-06 07:21] LABS: AUTOMATED NEUTROPHIL # 8.5 TH/MM3 (1.8-7.7); BASOPHIL % 0.3 % (0.0-2.0); HEMOGLOBIN 14.1 GM/DL (11.6-15.3); LYMPH % 20.4 % (9.0-44.0); LYMPHOCYTE # 2.3 TH/MM3 (1.0-4.8); MEAN CELL VOLUME 98.5 FL (80.0-100.0); MEAN CORPUSCULAR HEMOGLOBIN 33.1 PG (27.0-34.0); MEAN CORPUSCULAR HGB CONC 33.6 % (32.0-36.0); MONO % 3.9 % (0.0-8.0); MONOCYTE # 0.4 TH/MM3 (0-0.9); NEUT % 75.4 % (16.0-70.0); PLATELET COUNT 126 TH/MM3 (150-450); RED BLOOD COUNT 4.26 MIL/MM3 (4.00-5.30); RED CELL DISTRIBUTION WIDTH 13.4 % (11.6-17.2); WHITE BLOOD COUNT 11.2 TH/MM3 (4.0-11.0)
[2017-08-06 07:46] LABS: BICARBONATE 11.5 MEQ/L (21.0-32.0); CALCIUM 8.8 MG/DL (8.5-10.1); CREATININE 1.03 MG/DL (0.50-1.00)
[2017-08-06 07:52] LABS: PHOSPHORUS 1.7 MG/DL (2.5-4.9)
[2017-08-06] MEDS: PANTOPRAZOLE SODIUM 40 MG VIAL IV PUSH SCH (08:14)
[2017-08-06] MEDS: INSULIN DETEMIR 100 UNITS/ML VIAL SQ SCH ×2 (08:14→21:00)
[2017-08-06] MEDS: PROPRANOLOL HCL 10 MG TAB PO SCH (08:14)
[2017-08-06] MEDS: QUEtiapine FUMARATE 25 MG TAB PO SCH ×2 (08:14→21:00)
[2017-08-06] MEDS: INSULIN ASPART SUPPLEMENTAL SCALE SQ SCH ×4 (08:14→21:00)
[2017-08-06 11:56] LABS: HEMOGLOBIN A1C 14.3 % (4.3-6.0)
--- NOTE | 2017-08-06 16:25 | HHI.PR ---
Subjective Remarks No new complaints. Pt is tolerating liquid diet. Pt denies n/v/d. Pt denies abdominal pain. Objective Vitals Vital Signs Date Time Temp Pulse Resp B/P (MAP) Pulse Ox O2 Delivery O2 Flow Rate FiO2 08/06/17 15:00 98.6 96 20 154/67 (96) 98 08/06/17 14:00 89 08/06/17 13:58 98.4 96 20 146/90 (108) 98 08/06/17 12:00 89 08/06/17 11:00 98.0 90 20 129/79 (96) 98 08/06/17 10:00 89 08/06/17 08:00 89 08/06/17 07:00 98.3 93 20 144/86 (105) 98 08/06/17 06:00 89 08/06/17 04:00 90 08/06/17 03:00 97.5 94 20 136/73 (94) 98 08/06/17 02:00 84 08/06/17 00:00 100 08/05/17 23:00 98.8 91 20 100/56 (71) 98 08/05/17 22:00 97 08/05/17 20:00 110 08/05/17 19:00 97.8 110 23 171/84 (113) 98 08/05/17 18:00 102 Result Diagram: 08/06/17 0636 08/06/17 0636 Imaging Last Impressions Abdomen/Pelvis CT 08/05/17 0000 Signed Impressions: Service Date/Time: Saturday, August 05, 2017 23:26 - CONCLUSION: 1. No evidence of acute abdominal or pelvic process. No masses are identified. 2. Bladder distention Shemar Ba MD Toe X-Ray [id number] Signed Impressions: Service Date/Time: Friday, August 04, 2017 21:59 - CONCLUSION: 1. No acute bony abnormality. Jensen Rojas MD Chest X-Ray 08/04/17 0000 Signed Impressions: Service Date/Time: Friday, August 04, 2017 21:59 - CONCLUSION: No acute disease. Jensen Rojas MD Objective Remarks GENERAL: This is a well-nourished, well-developed patient, in no apparent distress. CARDIOVASCULAR: Regular rate and rhythm RESPIRATORY: Clear to auscultation. Breath sounds equal bilaterally. GASTROINTESTINAL: Abdomen soft, tender right side, nondistended. Normal active bowel sounds MUSCULOSKELETAL: Extremities without clubbing, cyanosis, or edema. NEURO: Alert & Oriented. Moves all ext x4 A/P Problem List: (1) Type 2 DM with ketoacidosis ICD Codes: E13.10 - Other specified diabetes mellitus with ketoacidosis without coma Status: Acute Plan: - Anion gap closed. - Stop DKA protocol/insulin drip - Pt started on scheduled levemir and SSI - follow BMPs, mild elevation of AG this AM - CT abd (08/06) --> NO acute findings - DVT prophylaxis - supportive care - transfer to general medical floor - request PT evaluation - request Psychiatric evaluation, Depression? - anticipate discharge in 1-2 days. (2) Nausea and vomiting ICD Codes: R11.2 - Nausea with vomiting, unspecified Status: Acute Plan: Emesis resolving continue to Provide Compazine for breakthrough vomiting in addition to Zofran if needed Patient reports she has been constipated for a few weeks. milk of mag given this AM CT abd/pelvis (08/06) --> NO acute findings (3) HTN (hypertension) ICD Codes: I10 - Essential (primary) hypertension Status: Chronic Plan: - stop propanolol - start metoprolol 12.5mg BID - observe (4) Depression ICD Codes: F32.9 - Major depressive disorder, single episode, unspecified Status: Chronic Plan: - seroquel - xanax prn - Consult Psychiatry (5) Anxiety ICD Codes: F41.9 - Anxiety disorder, unspecified Status: Chronic Plan: As above. Problem Qualifiers (1) Type 2 DM with ketoacidosis: Qualified Codes: E11.10 - Type 2 diabetes mellitus with ketoacidosis without coma; Z79.4 - [facility] (current) use of insulin (2) HTN (hypertension): Qualified Codes: I10 - Essential (primary) hypertension (3) Depression: Gavin Gusman DO Aug 06, 2017 16:25
[2017-08-06] MEDS ORDERED: PILL SPLITTER OTHER PRN (16:30)
[2017-08-06] MEDS: PANTOPRAZOLE SOD 40 MG DELAYED RELEASE TAB PO SCH (17:10)
[2017-08-06] MEDS: ONDANSETRON HCL 4 MG/2 ML VIAL IV PUSH PRN (21:00)
[2017-08-06] MEDS: METOPROLOL TARTRATE 25 MG TAB PO SCH (21:00)
[2017-08-06] MEDS: GABAPENTIN 300 MG CAP PO SCH (21:00)
[2017-08-06] MEDS ORDERED: LISINOPRIL 10 MG TAB PO SCH (21:00)
[2017-08-07] VITALS: BP 140/88; PULSE 105; RESP 17; TEMP 98.1; O2SAT 95
[2017-08-07 06:11] LABS: BASOPHIL % 0.1 % (0.0-2.0); HEMATOCRIT 45.6 % (35.0-46.0); HEMOGLOBIN 15.4 GM/DL (11.6-15.3); LYMPH % 15.7 % (9.0-44.0); LYMPHOCYTE # 1.6 TH/MM3 (1.0-4.8); MEAN CELL VOLUME 99.8 FL (80.0-100.0); MEAN CORPUSCULAR HEMOGLOBIN 33.6 PG (27.0-34.0); MEAN CORPUSCULAR HGB CONC 33.7 % (32.0-36.0); MEAN PLATELET VOLUME 9.8 FL (7.0-11.0); MONO % 3.7 % (0.0-8.0); MONOCYTE # 0.4 TH/MM3 (0-0.9); NEUT % 80.5 % (16.0-70.0); PLATELET COUNT 169 TH/MM3 (150-450); RED BLOOD COUNT 4.57 MIL/MM3 (4.00-5.30); RED CELL DISTRIBUTION WIDTH 13.1 % (11.6-17.2); WHITE BLOOD COUNT 9.9 TH/MM3 (4.0-11.0)
[2017-08-07] MEDS: ONDANSETRON HCL 4 MG/2 ML VIAL IV PUSH PRN (06:13)
[2017-08-07] MEDS: ALPRAZolam 0.5 MG TAB PO PRN (06:15)
[2017-08-07 06:33] LABS: BICARBONATE 7.1 MEQ/L (21.0-32.0); CALCIUM 8.8 MG/DL (8.5-10.1); CREATININE 1.05 MG/DL (0.50-1.00); MAGNESIUM 2.3 MG/DL (1.5-2.5); PHOSPHORUS 2.4 MG/DL (2.5-4.9)
[2017-08-07 08:00] VITALS: BP 120/65; PULSE 113; RESP 16; TEMP 97.4; O2SAT 98
--- NOTE | 2017-08-07 09:11 | HHI.PR ---
Subjective Remarks Patient c/o nausea and rapid breathing Patient did not receive insulin last night anion gap this AM 24 Objective Vitals Vital Signs Date Time Temp Pulse Resp B/P (MAP) Pulse Ox O2 Delivery O2 Flow Rate FiO2 08/07/17 08:00 97.4 113 16 120/65 (83) 98 08/07/17 00:00 98.1 105 17 140/88 (105) 95 08/06/17 20:00 98.1 100 17 173/95 (121) 100 08/06/17 18:00 89 08/06/17 16:00 89 08/06/17 15:00 98.6 96 20 154/67 (96) 98 08/06/17 14:00 89 08/06/17 13:58 98.4 96 20 146/90 (108) 98 08/06/17 12:00 89 08/06/17 11:00 98.0 90 20 129/79 (96) 98 08/06/17 10:00 89 Result Diagram: 08/07/17 0546 08/07/17 0546 Other Results Laboratory Tests Test 08/04/17 20:40 08/04/17 22:30 08/04/17 22:42 08/05/17 00:15 White Blood Count 15.4 TH/MM3 Red Blood Count 5.14 MIL/MM3 Hemoglobin 16.5 GM/DL Hematocrit 50.6 % Mean Corpuscular Volume 98.3 FL Mean Corpuscular Hemoglobin 32.2 PG Mean Corpuscular Hemoglobin Concent 32.7 % Red Cell Distribution Width 12.4 % Platelet Count 192 TH/MM3 Mean Platelet Volume 11.4 FL Neutrophils (%) (Auto) 82.6 % Lymphocytes (%) (Auto) 14.0 % Monocytes (%) (Auto) 2.3 % Eosinophils (%) (Auto) 0.1 % Basophils (%) (Auto) 1.0 % Neutrophils # (Auto) 12.6 TH/MM3 Lymphocytes # (Auto) 2.2 TH/MM3 Monocytes # (Auto) 0.4 TH/MM3 Eosinophils # (Auto) 0.0 TH/MM3 Basophils # (Auto) 0.2 TH/MM3 CBC Comment AUTO DIFF Differential Comment AUTO DIFF CONFIRMED Blood Urea Nitrogen 21 MG/DL Creatinine 1.50 MG/DL Random Glucose 300 MG/DL Total Protein 9.9 GM/DL Albumin 4.1 GM/DL Calcium Level 9.3 MG/DL Alkaline Phosphatase 81 U/L Aspartate Amino Transf (AST/SGOT) 22 U/L Alanine Aminotransferase (ALT/SGPT) 36 U/L Total Bilirubin 0.6 MG/DL Sodium Level 134 MEQ/L Potassium Level 4.5 MEQ/L Chloride Level 96 MEQ/L Carbon Dioxide Level 10.1 MEQ/L Anion Gap 28 MEQ/L Estimat Glomerular Filtration Rate 35 ML/MIN Lipase 205 U/L Thyroid Stimulating Hormone 3rd Gen 1.600 uIU/ML Urine Color YELLOW Urine Turbidity CLEAR Urine pH 5.0 Urine Specific Mittie GREATER/EQUAL 1.030 Urine Protein 30 mg/dL Urine Glucose (UA) 1000 OR GREATER mg/dL Urine Ketones 80 OR GREATER mg/dL Urine Occult Blood TRACE Urine Nitrite NEG Urine Bilirubin NEG Urine Urobilinogen 0.2 MG/DL Urine Leukocyte Esterase NEG Urine RBC 0-3 /hpf Urine WBC 3-5 /hpf Urine Squamous Epithelial Cells 6-8 /hpf Urine Bacteria OCC /hpf Microscopic Urinalysis Comment CULT NOT INDICATED Blood Gas Puncture Site RT ARM Blood Gas Patient Temperature 98.6 Venous Blood pH 7.06 Venous Blood Partial Pressure CO2 26 mmHg Venous Blood Partial Pressure O2 38 mmHg Venous Blood HCO3 7 mmol/L Venous Blood Oxygen Saturation 59 % Venous Blood Oxygen Content 14.5 Vol % Venous Blood Base Excess -21.4 mmol/L Oxygen Delivery Device ROOM AIR Blood Gas Inspired Oxygen 21 % Nasal Screen MRSA (PCR) MRSA DETECTED Test 08/05/17 05:18 08/05/17 08:39 08/05/17 10:13 08/05/17 14:19 Blood Urea Nitrogen 20 MG/DL MG/DL 16 MG/DL Creatinine 1.35 MG/DL MG/DL 1.42 MG/DL Random Glucose 208 MG/DL MG/DL 201 MG/DL Calcium Level 8.9 MG/DL MG/DL 8.7 MG/DL Phosphorus Level 2.3 MG/DL MG/DL 0.5 MG/DL Magnesium Level 2.4 MG/DL MG/DL 2.2 MG/DL Sodium Level 140 MEQ/L MEQ/L 145 MEQ/L Potassium Level 4.8 MEQ/L MEQ/L 3.6 MEQ/L Chloride Level 109 MEQ/L MEQ/L 116 MEQ/L Carbon Dioxide Level 9.4 MEQ/L MEQ/L 18.9 MEQ/L Anion Gap 22 MEQ/L MEQ/L 10 MEQ/L Estimat Glomerular Filtration Rate 40 ML/MIN ML/MIN 37 ML/MIN Hemoglobin A1c % 14.3 % B-Hydroxybutyrate MMOL/L 2.46 MMOL/L 5.32 MMOL/L White Blood Count 11.9 TH/MM3 Red Blood Count 4.58 MIL/MM3 Hemoglobin 15.0 GM/DL Hematocrit 44.6 % Mean Corpuscular Volume 97.5 FL Mean Corpuscular Hemoglobin 32.7 PG Mean Corpuscular Hemoglobin Concent 33.6 % Red Cell Distribution Width 13.1 % Platelet Count 146 TH/MM3 Mean Platelet Volume 9.3 FL Neutrophils (%) (Auto) 75.5 % Lymphocytes (%) (Auto) 16.1 % Monocytes (%) (Auto) 8.3 % Eosinophils (%) (Auto) 0.0 % Basophils (%) (Auto) 0.1 % Neutrophils # (Auto) 9.0 TH/MM3 Lymphocytes # (Auto) 1.9 TH/MM3 Monocytes # (Auto) 1.0 TH/MM3 Eosinophils # (Auto) 0.0 TH/MM3 Basophils # (Auto) 0.0 TH/MM3 CBC Comment DIFF FINAL Differential Comment Test 08/05/17 19:38 08/06/17 01:05 08/06/17 06:36 08/07/17 05:46 Blood Urea Nitrogen 14 MG/DL 11 MG/DL 19 MG/DL Creatinine 1.20 MG/DL 1.03 MG/DL 1.05 MG/DL Random Glucose 118 MG/DL 184 MG/DL 237 MG/DL Calcium Level 8.7 MG/DL 8.8 MG/DL 8.8 MG/DL Sodium Level 145 MEQ/L 138 MEQ/L 138 MEQ/L Potassium Level 3.2 MEQ/L 4.0 MEQ/L 3.9 MEQ/L Chloride Level 115 MEQ/L 109 MEQ/L 107 MEQ/L Carbon Dioxide Level 18.7 MEQ/L 11.5 MEQ/L 7.1 MEQ/L Anion Gap 11 MEQ/L 18 MEQ/L 24 MEQ/L Estimat Glomerular Filtration Rate 45 ML/MIN 54 ML/MIN 53 ML/MIN Urine Color LIGHT-YELLOW Urine Turbidity CLEAR Urine pH 5.5 Urine Specific Mittie 1.018 Urine Protein NEG mg/dL Urine Glucose (UA) 1000 mg/dL Urine Ketones 80 mg/dL Urine Occult Blood TRACE Urine Nitrite NEG Urine Bilirubin NEG Urine Urobilinogen LESS THAN 2.0 MG/DL Urine Leukocyte Esterase NEG Urine RBC 7 /hpf Urine WBC 4 /hpf Urine Squamous Epithelial Cells 1 /hpf Urine Mucus FEW /lpf Microscopic Urinalysis Comment CULT NOT INDICATED White Blood Count 11.2 TH/MM3 9.9 TH/MM3 Red Blood Count 4.26 MIL/MM3 4.57 MIL/MM3 Hemoglobin 14.1 GM/DL 15.4 GM/DL Hematocrit 42.0 % 45.6 % Mean Corpuscular Volume 98.5 FL 99.8 FL Mean Corpuscular Hemoglobin 33.1 PG 33.6 PG Mean Corpuscular Hemoglobin Concent 33.6 % 33.7 % Red Cell Distribution Width 13.4 % 13.1 % Platelet Count 126 TH/MM3 169 TH/MM3 Mean Platelet Volume 10.0 FL 9.8 FL Neutrophils (%) (Auto) 75.4 % 80.5 % Lymphocytes (%) (Auto) 20.4 % 15.7 % Monocytes (%) (Auto) 3.9 % 3.7 % Eosinophils (%) (Auto) 0.0 % 0.0 % Basophils (%) (Auto) 0.3 % 0.1 % Neutrophils # (Auto) 8.5 TH/MM3 8.0 TH/MM3 Lymphocytes # (Auto) 2.3 TH/MM3 1.6 TH/MM3 Monocytes # (Auto) 0.4 TH/MM3 0.4 TH/MM3 Eosinophils # (Auto) 0.0 TH/MM3 0.0 TH/MM3 Basophils # (Auto) 0.0 TH/MM3 0.0 TH/MM3 CBC Comment DIFF FINAL DIFF FINAL Differential Comment Phosphorus Level 1.7 MG/DL 2.4 MG/DL Magnesium Level 2.0 MG/DL 2.3 MG/DL Imaging Last Impressions Abdomen/Pelvis CT 08/05/17 0000 Signed Impressions: Service Date/Time: Saturday, August 05, 2017 23:26 - CONCLUSION: 1. No evidence of acute abdominal or pelvic process. No masses are identified. 2. Bladder distention Shemar Ba MD Toe X-Ray [id number] Signed Impressions: Service Date/Time: Friday, August 04, 2017 21:59 - CONCLUSION: 1. No acute bony abnormality. Jensen Rojas MD Chest X-Ray 08/04/17 0000 Signed Impressions: Service Date/Time: Friday, August 04, 2017 21:59 - CONCLUSION: No acute disease. Jensen Rojas MD Objective Remarks GENERAL: This is a 62 year old ill appearing 62 year old patient CARDIOVASCULAR: tachycardic RESPIRATORY: Clear to auscultation. Breath sounds equal bilaterally. GASTROINTESTINAL: Abdomen soft, tender right side, nondistended. Normal active bowel sounds MUSCULOSKELETAL: Extremities without clubbing, cyanosis, or edema. NEURO: Alert & Oriented. Moves all ext x4 A/P Problem List: (1) Type 2 DM with ketoacidosis ICD Codes: E13.10 - Other specified diabetes mellitus with ketoacidosis without coma Status: Acute Plan: - Patient reports that she started back on Jardiance last Monday and the last time she was on Jardiance she, "got sick," (had DKA) - Patient's also has an ETOH addition and her daughter was living with her to help her stop drinking recently moved back to [place] - Patient c/o nausea and rapid breathing - Patient did not receive insulin last night - (08/07) patient's anion gap 24 this AM - STAT transfer to ICU - resume DKA protocol/insulin drip - NS at 125 ml/h while awaiting ICU bed - CT abd (08/06) --> NO acute findings - supportive care - request Psychiatric evaluation, Depression? - DVT prophylaxis with SCDs (2) Nausea and vomiting ICD Codes: R11.2 - Nausea with vomiting, unspecified Status: Acute Plan: N/V returned last night continue to Provide Compazine for breakthrough vomiting in addition to Zofran if needed Patient reports she has been constipated for a few weeks CT abd/pelvis (08/06) --> NO acute findings (3) HTN (hypertension) ICD Codes: I10 - Essential (primary) hypertension Status: Chronic Plan: - stop propanolol - start metoprolol 12.5mg BID - observe (4) Depression ICD Codes: F32.9 - Major depressive disorder, single episode, unspecified Status: Chronic Plan: - seroquel - xanax prn - Consult Psychiatry (5) Anxiety ICD Codes: F41.9 - Anxiety disorder, unspecified Status: Chronic Plan: As above. Assessment and Plan Patient examined. Assessment and plan formulated with Sirisha Nguyen PA-C. I agree with the above. pt is now back in DKA. says she became ill after converting to jardiance pt with tachypnea and nausea. poor po and vomiting overnight. no diarrhea move to ICU and start IVF and insulin gtt with protocol. 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
[2017-08-07] MEDS ORDERED: POTASSIUM CHLOR 20 MEQ PREMIX 100 ML IV PRN ×5 (09:15)
[2017-08-07] MEDS ORDERED: POTASSIUM CHLOR 40 MEQ PREMIX 100 ML IV PRN ×2 (09:15)
[2017-08-07] MEDS ORDERED: SODIUM PHOSPHATE INJ 15 MMOL in SODIUM CHLORIDE 0.9% INJ 100 ML IV PRN (09:15)
[2017-08-07] MEDS ORDERED: SODIUM BICARBONATE 8.4% SOLN 50 MEQ/50 ML VIAL IV PUSH PRN ×2 (09:15)
[2017-08-07] MEDS: QUEtiapine FUMARATE 25 MG TAB PO SCH ×2 (09:17→21:07)
[2017-08-07] MEDS: METOPROLOL TARTRATE 25 MG TAB PO SCH ×2 (09:18→21:07)
[2017-08-07] MEDS: PANTOPRAZOLE SOD 40 MG DELAYED RELEASE TAB PO SCH (09:18)
[2017-08-07] MEDS ORDERED: ONDANSETRON HCL 4 MG/2 ML VIAL IV PUSH ONE (10:30)
[2017-08-07] MEDS ORDERED: INSULIN HUMAN REGULAR 1,000 UNITS/10 ML VIAL IV PUSH ONE (10:30)
[2017-08-07] MEDS: SODIUM CHLOR 0.9% 1000 ML INJ 1,000 ML IV SCH ×2 (11:00→19:00)
--- NOTE | 2017-08-07 12:01 | PD.PSY.CON ---
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/04/2016 Active Scripts Quetiapine (Quetiapine) 25 Mg Tab, 25 MG PO BID for mood d/o, #60 TAB Prov:Joey Winchester MD PhD 10/07/16 Reported Medications Alprazolam (Xanax) 0.5 Mg Tab, 0.5 MG PO Q4H Y for ANXIETY, TAB 0 Refills 08/04/17 Propranolol (Propranolol) 10 Mg Tab, 10 MG PO Q12HR, #60 TAB 0 Refills 05/18/16 Gabapentin (Gabapentin) 300 Mg Cap, 300 MG PO HS, #30 CAP 0 Refills 05/18/16 Discontinued Reported Medications Glimepiride (Glimepiride) 4 Mg Tab, 4 MG PO DAILY for Blood Sugar Management, # 30 TAB 0 Refills Take with breakfast or first main meal 08/03/16 Quetiapine (Quetiapine) 50 Mg Tab, 50 MG PO BID, #60 TAB 0 Refills 08/03/16 Pantoprazole (Protonix) 40 Mg Tab, 40 MG PO MWF for Reflux, #30 TAB 0 Refills 08/03/16 Metoprolol Tartrate (Metoprolol Tartrate) 25 Mg Tab, 25 MG PO BID, #60 TAB 0 Refills 08/03/16 Valacyclovir (Valacyclovir) 500 Mg Tab, 500 MG PO DAILY for Mgmt Viral Infection , #30 TAB 0 Refills 05/18/16 Sertraline (Sertraline) 25 Mg Tab, 25 MG PO DAILY, #30 TAB 0 Refills 05/18/16 Current Medications Medications (Trade) Dose Ordered Sig/Courtney Route Start Time Stop Time Status Last Admin Miscellaneous Information Patient in critical care unit? Ass... [id number] 08/05/17 00:15 (Chlorhexidine 2% Cloth) 3 pack DAILY@04 TOPICAL 08/05/17 04:00 08/09/17 04:01 08/05/17 04:00 (Chlorhexidine 2% Cloth) 3 pack UNSCH PRN TOPICAL 08/05/17 00:15 08/10/17 00:07 (Xanax) 0.5 mg Q6H PRN PO 08/05/17 06:15 08/07/17 06:15 (Neurontin) 300 mg HS PO 08/05/17 21:00 08/06/17 21:00 (SEROquel) 25 mg BID PO 08/05/17 09:00 08/07/17 09:17 (Compazine Inj) 5 mg Q6H PRN IV PUSH 08/05/17 08:00 08/06/17 23:48 (Lopressor) 12.5 mg Q12HR PO 08/06/17 21:00 08/07/17 09:18 (Protonix) 40 mg DAILY PO 08/06/17 16:30 08/07/17 09:18 (Pill Splitter) 1 ea UNSCH PRN OTHER 08/06/17 16:30 (Tylenol) 650 mg Q4H PRN PO 08/06/17 17:30 Sodium Chloride 1,000 ml @ 125 mls/hr Q8H IV 08/07/17 11:00 (Zofran Inj) 4 mg Q4H PRN IV PUSH 08/07/17 09:15 Dextrose/Sodium Chloride 1,000 ml @ 200 mls/hr Q5H IV 08/07/17 11:00 Insulin Human Regular 100 units/ Sodium Chloride 100 ml @ 6.21 mls/hr TITRATE PRN IV 08/07/17 09:15 Potassium Chloride 100 ml @ 100 mls/hr Q1H PRN IV 08/07/17 09:15 Potassium Chloride 100 ml @ 50 mls/hr Q2H PRN IV 08/07/17 09:15 Potassium Chloride 100 ml @ 100 mls/hr Q1H PRN IV 08/07/17 09:15 Potassium Chloride 100 ml @ 100 mls/hr Q1H PRN IV 08/07/17 09:15 Potassium Chloride 100 ml @ 50 mls/hr Q2H PRN IV 08/07/17 09:15 Potassium Chloride 100 ml @ 50 mls/hr Q2H PRN IV 08/07/17 09:15 Potassium Chloride 100 ml @ 50 mls/hr Q2H PRN IV 08/07/17 09:15 Potassium Chloride 100 ml @ 50 mls/hr Q2H PRN IV 08/07/17 09:15 (Sodium Bicarbonate 8.4% Inj) 100 meq UNSCH PRN IV PUSH 08/07/17 09:15 (Sodium Bicarbonate 8.4% Inj) 50 meq UNSCH PRN IV PUSH 08/07/17 09:15 Sodium Phosphate 15 mmol/Sodium Chloride 105 ml @ 25 mls/hr UNSCH PRN IV 08/07/17 09:15 Physical Exam Vital Signs Vital Signs Date Time Temp Pulse Resp B/P (MAP) Pulse Ox O2 Delivery O2 Flow Rate FiO2 08/07/17 08:00 97.4 113 16 120/65 (83) 98 08/04/17 21:30 Room Air I/O 08/07/17 08/07/17 08/08/17 08:00 16:00 00:00 Intake Total 120 ml Output Total 450 ml Balance -330 ml Lab Results Test 08/07/17 05:46 White Blood Count 9.9 TH/MM3 Red Blood Count 4.57 MIL/MM3 Hemoglobin 15.4 GM/DL Hematocrit 45.6 % Mean Corpuscular Volume 99.8 FL Mean Corpuscular Hemoglobin 33.6 PG Mean Corpuscular Hemoglobin Concent 33.7 % Red Cell Distribution Width 13.1 % Platelet Count 169 TH/MM3 Mean Platelet Volume 9.8 FL Neutrophils (%) (Auto) 80.5 % Lymphocytes (%) (Auto) 15.7 % Monocytes (%) (Auto) 3.7 % Eosinophils (%) (Auto) 0.0 % Basophils (%) (Auto) 0.1 % Neutrophils # (Auto) 8.0 TH/MM3 Lymphocytes # (Auto) 1.6 TH/MM3 Monocytes # (Auto) 0.4 TH/MM3 Eosinophils # (Auto) 0.0 TH/MM3 Basophils # (Auto) 0.0 TH/MM3 CBC Comment DIFF FINAL Differential Comment Blood Urea Nitrogen 19 MG/DL Creatinine 1.05 MG/DL Random Glucose 237 MG/DL Calcium Level 8.8 MG/DL Phosphorus Level 2.4 MG/DL Magnesium Level 2.3 MG/DL Sodium Level 138 MEQ/L Potassium Level 3.9 MEQ/L Chloride Level 107 MEQ/L Carbon Dioxide Level 7.1 MEQ/L Anion Gap 24 MEQ/L Estimat Glomerular Filtration Rate 53 ML/MIN Date/Time Source Procedure Growth Status 08/04/17 20:40 Nasal Washing Influenza Types A,B Antigen (ANGELIKA) - Final NEGATIVE FOR FLU A AND B ANTIGEN.... Complete Assessment & Plan Problem List: (1) Diabetic ketoacidosis ICD Codes: E13.10 - Other specified diabetes mellitus with ketoacidosis without coma Status: Acute Assessment & Plan: Patient was visited this morning at 7:55 AM. The patient was not able to cooperate with a psychiatric assessment stating that she was too nauseated and on pain to talk at this moment. She also states that she does not have a psychiatric problem, but all her problems are medical issues. My suggestion is to address with the patient the real need of a psychiatric consultation. I will be very happy to revisit the patient and help. Assessment & Plan Estimated LOS: days Problem Qualifiers (1) Diabetic ketoacidosis: Qualified Codes: E11.10 - Type 2 diabetes mellitus with ketoacidosis without coma Francisco Javier Sousa MD Aug 07, 2017 12:00
[2017-08-07] MEDS: INSULIN REGULAR (IV INFUSION) 100 UNITS in SODIUM CHLORIDE 0.9% INJ 99 ML IV PRN ×2 (12:30→21:00)
[2017-08-07] MEDS: DEXT 5%-NACL 0.9% 1000 ML INJ 1,000 ML IV SCH ×3 (12:47→21:00)
[2017-08-07 13:10] VITALS: PULSE 103
[2017-08-07 14:35] LABS: BICARBONATE 6.1 MEQ/L (21.0-32.0); CALCIUM 8.2 MG/DL (8.5-10.1); CREATININE 1.02 MG/DL (0.50-1.00); MAGNESIUM 2.3 MG/DL (1.5-2.5); PHOSPHORUS 2.3 MG/DL (2.5-4.9)
[2017-08-07] MEDS: POTASSIUM CHLOR 20 MEQ PREMIX 100 ML IV PRN ×3 (15:08→21:13)
[2017-08-07 15:49] VITALS: BP 103/58; PULSE 107; RESP 25; O2SAT 98
[2017-08-07] MEDS ORDERED: POTASSIUM PHOSPHATE MONOBASIC 500 MG TAB PO ONE (17:15)
[2017-08-07 20:00] VITALS: BP 125/66; PULSE 98; RESP 16; TEMP 98.3; O2SAT 99
[2017-08-07 21:07] LABS: BICARBONATE 9.4 MEQ/L (21.0-32.0); CALCIUM 8.7 MG/DL (8.5-10.1); CREATININE 1.06 MG/DL (0.50-1.00); MAGNESIUM 2.2 MG/DL (1.5-2.5); PHOSPHORUS 0.5 MG/DL (2.5-4.9)
[2017-08-07] MEDS: GABAPENTIN 300 MG CAP PO SCH (21:07)
[2017-08-08] VITALS (15 sets, daily range): BP systolic 96–177; BP diastolic 52–101; PULSE 80–120; RESP 15–26; TEMP 98–98.5; O2SAT 97–100
[2017-08-08] MEDS: DEXT 5%-NACL 0.9% 1000 ML INJ 1,000 ML IV SCH ×2 (02:00→04:29)
[2017-08-08] MEDS: SODIUM CHLOR 0.9% 1000 ML INJ 1,000 ML IV SCH ×2 (02:23→09:02)
[2017-08-08 03:15] LABS: BICARBONATE 16.8 MEQ/L (21.0-32.0); CALCIUM 8.1 MG/DL (8.5-10.1); CREATININE 0.99 MG/DL (0.50-1.00); MAGNESIUM 2.1 MG/DL (1.5-2.5); PHOSPHORUS 1.1 MG/DL (2.5-4.9)
[2017-08-08] MEDS: CHLORHEXIDINE GLUCONATE 2 % 1 PACK (2 CLOTHS)(taper/protocol) TOPICAL SCH (04:00)
[2017-08-08] MEDS: METOPROLOL TARTRATE 25 MG TAB PO SCH ×2 (09:00→23:23)
[2017-08-08] MEDS ORDERED: DEXT 5%-NACL 0.9% 1000 ML INJ 1,000 ML IV SCH (09:00)
[2017-08-08] MEDS: PANTOPRAZOLE SOD 40 MG DELAYED RELEASE TAB PO SCH (09:01)
[2017-08-08] MEDS: POTASSIUM PHOSPHATE MONOBASIC 500 MG TAB PO SCH ×2 (09:01→21:00)
[2017-08-08] MEDS: QUEtiapine FUMARATE 25 MG TAB PO SCH ×2 (09:02→23:23)
--- NOTE | 2017-08-08 09:06 | HHI.PR ---
Subjective Remarks n/v resolved. no abdomen pain. describes chills but no fever. Objective Vitals heart reg lung cta abd s/nt ext no edema Vital Signs Date Time Temp Pulse Resp B/P (MAP) Pulse Ox O2 Delivery O2 Flow Rate FiO2 08/08/17 04:00 98.1 81 16 96/52 (67) 97 08/08/17 00:00 98.0 80 15 107/56 (73) 98 08/07/17 20:00 98.3 98 16 125/66 (85) 99 08/07/17 15:49 107 25 103/58 (73) 98 08/07/17 13:10 103 Result Diagram: 08/07/17 0546 08/08/17 0237 Imaging Last Impressions Abdomen/Pelvis CT 08/05/17 0000 Signed Impressions: Service Date/Time: Saturday, August 05, 2017 23:26 - CONCLUSION: 1. No evidence of acute abdominal or pelvic process. No masses are identified. 2. Bladder distention Shemar Ba MD Toe X-Ray [id number]/[id number] Signed Impressions: Service Date/Time: Friday, August 04, 2017 21:59 - CONCLUSION: 1. No acute bony abnormality. Jensen Rojas MD Chest X-Ray 08/04/17 0000 Signed Impressions: Service Date/Time: Friday, August 04, 2017 21:59 - CONCLUSION: No acute disease. Jensen Rojas MD A/P Problem List: (1) Type 2 DM with ketoacidosis ICD Codes: E13.10 - Other specified diabetes mellitus with ketoacidosis without coma Status: Acute Plan: - Patient reports that she started back on Jardiance last Monday and the last time she was on Jardiance she, "got sick," (had DKA) - Patient's also has an ETOH addition and her daughter was living with her to help her stop drinking recently moved back to [place] Pt was initially admitted to ICU for insulin gtt protocol then transferred to med/surg. Transferred back to ICU on 08/07 for recurrence of her dka will continue the insulin gtt protocol. AG closing. bicarb still low. no fevers noted. will check blood cx and LA. lower ivf and convert to d51/2ns dvt prophylaxis PT consulted. (2) HTN (hypertension) ICD Codes: I10 - Essential (primary) hypertension Status: Chronic Plan: - stop propanolol - start metoprolol 12.5mg BID - observe (3) Depression ICD Codes: F32.9 - Major depressive disorder, single episode, unspecified Status: Chronic Plan: - seroquel - xanax prn - Consult Psychiatry (4) Anxiety ICD Codes: F41.9 - Anxiety disorder, unspecified Status: Chronic Plan: As above. Problem Qualifiers (1) Type 2 DM with ketoacidosis: Qualified Codes: E11.10 - Type 2 diabetes mellitus with ketoacidosis without coma; Z79.4 - shelter (current) use of insulin (2) HTN (hypertension): Qualified Codes: I10 - Essential (primary) hypertension (3) Depression: Bakari Hamilton MD Aug 08, 2017 09:06
[2017-08-08 09:16] LABS: BICARBONATE 17.9 MEQ/L (21.0-32.0); CALCIUM 8.5 MG/DL (8.5-10.1); CALCIUM-PROTEIN CORRECTED 8.5 MG/DL (8.5-10.1); CREATININE 0.9 MG/DL (0.50-1.00); PHOSPHORUS 0.4 MG/DL (2.5-4.9); TOTAL PROTEIN 7.2 GM/DL (6.4-8.2)
[2017-08-08] MEDS: POTASSIUM CHLOR 20 MEQ PREMIX 100 ML IV PRN ×5 (10:25→23:27)
[2017-08-08] MEDS: DEXT 5%-NACL 0.45% 1000 ML INJ 1,000 ML IV SCH ×2 (10:25→15:00)
[2017-08-08 16:19] LABS: BICARBONATE 18.1 MEQ/L (21.0-32.0); CALCIUM 8.3 MG/DL (8.5-10.1); CREATININE 0.78 MG/DL (0.50-1.00); PHOSPHORUS 0.8 MG/DL (2.5-4.9)
[2017-08-08] MEDS ORDERED: SODIUM PHOSPHATE INJ 15 MMOL in SODIUM CHLORIDE 0.9% INJ 150 ML IV ONE (18:00)
[2017-08-08] MEDS ORDERED: SODIUM CHLOR 0.9% IV ONE (18:30)
[2017-08-08] MEDS ORDERED: SODIUM PHOSPHATE IV ONE (18:30)
[2017-08-08 22:08] LABS: BICARBONATE 19.3 MEQ/L (21.0-32.0); CALCIUM 8.4 MG/DL (8.5-10.1); CREATININE 0.69 MG/DL (0.50-1.00)
[2017-08-08] MEDS: GABAPENTIN 300 MG CAP PO SCH (23:26)
[2017-08-09] VITALS (9 sets, daily range): BP systolic 118–182; BP diastolic 63–99; PULSE 80–109; RESP 18–36; TEMP 98.2–99.2; O2SAT 100
[2017-08-09] MEDS: DEXT 5%-NACL 0.45% 1000 ML INJ 1,000 ML IV SCH (00:17)
[2017-08-09] MEDS ORDERED: INSULIN DETEMIR 100 UNITS/ML VIAL SQ SCH ×2 (00:45→09:00)
[2017-08-09] MEDS ORDERED: DEXTROSE 50% IN WATER 50 ML VIAL(D50) IV PUSH PRN (01:15)
[2017-08-09] MEDS ORDERED: GLUCAGON 1 MG/ML VIAL OTHER PRN (01:15)
[2017-08-09] MEDS: CHLORHEXIDINE GLUCONATE 2 % 1 PACK (2 CLOTHS)(taper/protocol) TOPICAL SCH (04:00)
[2017-08-09] MEDS ORDERED: LOW DOSE INSULIN NOVOLIN REGULAR SUPPLEMENTAL SCALE SQ SCH (08:00)
[2017-08-09 08:45] LABS: BICARBONATE 21.1 MEQ/L (21.0-32.0); CALCIUM 8.2 MG/DL (8.5-10.1); CREATININE 0.62 MG/DL (0.50-1.00)
[2017-08-09 08:46] LABS: PHOSPHORUS 1.4 MG/DL (2.5-4.9)
[2017-08-09] MEDS: METOPROLOL TARTRATE 25 MG TAB PO SCH ×2 (08:56→22:03)
[2017-08-09] MEDS: PANTOPRAZOLE SOD 40 MG DELAYED RELEASE TAB PO SCH (08:56)
[2017-08-09] MEDS: QUEtiapine FUMARATE 25 MG TAB PO SCH ×2 (08:56→22:03)
--- NOTE | 2017-08-09 09:27 | HHI.PR ---
Subjective Remarks no n/v interested in snf says her balance has been bad at home. Objective Vitals heart reg lung cta abd s/nt ext no edema Vital Signs Date Time Temp Pulse Resp B/P (MAP) Pulse Ox O2 Delivery O2 Flow Rate FiO2 08/09/17 04:00 98.2 94 36 166/92 (116) 100 08/09/17 00:00 98.4 94 22 171/90 (117) 100 08/08/17 20:00 98.5 101 26 170/84 (112) 99 08/08/17 18:00 98 25 157/81 (106) 100 08/08/17 17:00 88 17 115/57 (76) 100 08/08/17 16:00 98.0 90 22 123/67 (85) 100 08/08/17 15:00 90 24 130/79 (96) 98 08/08/17 14:00 108 18 170/101 (124) 99 08/08/17 13:00 103 16 139/82 (101) 97 08/08/17 12:00 92 16 111/69 (83) 99 08/08/17 11:00 95 22 143/84 (103) 100 08/08/17 10:00 97 21 157/85 (109) 100 Result Diagram: 08/07/17 0546 08/09/17 0617 Imaging Last Impressions Abdomen/Pelvis CT 08/05/17 0000 Signed Impressions: Service Date/Time: Saturday, August 05, 2017 23:26 - CONCLUSION: 1. No evidence of acute abdominal or pelvic process. No masses are identified. 2. Bladder distention Shemar Ba MD Toe X-Ray [id number] Signed Impressions: Service Date/Time: Friday, August 04, 2017 21:59 - CONCLUSION: 1. No acute bony abnormality. Jensen Rojas MD Chest X-Ray 08/04/17 0000 Signed Impressions: Service Date/Time: Friday, August 04, 2017 21:59 - CONCLUSION: No acute disease. Jensen Rojas MD A/P Problem List: (1) Type 2 DM with ketoacidosis ICD Codes: E13.10 - Other specified diabetes mellitus with ketoacidosis without coma Status: Acute Plan: - Patient reports that she started back on Jardiance last Monday and the last time she was on Jardiance she, "got sick," (had DKA) - Patient's also has an ETOH addition and her daughter was living with her to help her stop drinking recently moved back to [place] Pt was initially admitted to ICU for insulin gtt protocol then transferred to med/surg. Transferred back to ICU on 08/07 for recurrence of her dka stop insulin gtt. dka resolved. titrate levemir insulin. novolog ssi d/c ivf replace k and phos transfer out of icu PT daily. plan for snf at d/c dvt prophylaxis (2) HTN (hypertension) ICD Codes: I10 - Essential (primary) hypertension Status: Chronic Plan: - stop propanolol - start metoprolol 12.5mg BID - observe (3) Depression ICD Codes: F32.9 - Major depressive disorder, single episode, unspecified Status: Chronic Plan: - seroquel - xanax prn - Consult Psychiatry (4) Anxiety ICD Codes: F41.9 - Anxiety disorder, unspecified Status: Chronic Plan: As above. 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
[2017-08-09] MEDS ORDERED: POTASSIUM PHOSPHATE MONOBASIC 500 MG TAB PO ONE (09:30)
[2017-08-09] MEDS: POTASSIUM CHLORIDE 20 MEQ CONTROLLED RELEASE TAB PO SCH ×2 (11:21→12:00)
[2017-08-09] MEDS: INSULIN ASPART SUPPLEMENTAL SCALE SQ SCH ×3 (12:00→21:00)
[2017-08-09] MEDS: MUPIROCIN 2% OINT 22 GM TUBE TOPICAL SCH ×2 (12:01→22:05)
[2017-08-09] MEDS ORDERED: POTASSIUM CHLORIDE 20 MEQ CONTROLLED RELEASE TAB PO ONE (16:00)
[2017-08-09] MEDS: ONDANSETRON HCL 4 MG/2 ML VIAL IV PUSH PRN ×2 (17:49→22:03)
[2017-08-09] MEDS: POTASSIUM PHOSPHATE MONOBASIC 500 MG TAB PO SCH (22:03)
[2017-08-09] MEDS: INSULIN DETEMIR 100 UNITS/ML VIAL SQ SCH (22:04)
[2017-08-09] MEDS: GABAPENTIN 300 MG CAP PO SCH (22:04)
[2017-08-10 00:40] VITALS: BP 130/65; PULSE 68; RESP 16; TEMP 97.7; O2SAT 99
[2017-08-10] MEDS: MUPIROCIN 2% OINT 22 GM TUBE TOPICAL SCH ×3 (04:58→22:30)
[2017-08-10 05:15] VITALS: BP 145/84; PULSE 89; RESP 16; TEMP 98; O2SAT 99
[2017-08-10 08:00] VITALS: BP 173/101; PULSE 82; RESP 18; TEMP 98.2; O2SAT 97
[2017-08-10] MEDS: INSULIN ASPART SUPPLEMENTAL SCALE SQ SCH ×4 (08:00→22:21)
[2017-08-10] MEDS: INSULIN DETEMIR 100 UNITS/ML VIAL SQ SCH ×2 (08:40→22:20)
[2017-08-10] MEDS: QUEtiapine FUMARATE 25 MG TAB PO SCH ×2 (08:42→22:29)
[2017-08-10] MEDS: METOPROLOL TARTRATE 25 MG TAB PO SCH ×2 (08:42→22:29)
[2017-08-10] MEDS: POTASSIUM PHOSPHATE MONOBASIC 500 MG TAB PO SCH ×2 (08:43→22:30)
[2017-08-10] MEDS: ONDANSETRON HCL 4 MG/2 ML VIAL IV PUSH PRN ×2 (08:44→22:39)
[2017-08-10] MEDS: ACETAMINOPHEN 325 MG TAB PO PRN ×3 (08:44→22:20)
[2017-08-10] MEDS: PANTOPRAZOLE SOD 40 MG DELAYED RELEASE TAB PO SCH (08:47)
--- NOTE | 2017-08-10 10:03 | HHI.PR ---
Subjective Remarks no n/v. c/o chronic burning in feet but says lyrica nor gabapentin worked well for her. Objective Vitals heart reg lung cta abd s/nt ext bilateral toes..denuded skin and mild erythema. no pus. Vital Signs Date Time Temp Pulse Resp B/P (MAP) Pulse Ox O2 Delivery O2 Flow Rate FiO2 08/10/17 08:00 98.2 82 18 173/101 (125) 97 08/10/17 05:15 98.0 89 16 145/84 (104) 99 08/10/17 00:40 97.7 68 16 130/65 (86) 99 08/09/17 19:30 99.2 91 18 118/63 (81) 100 08/09/17 18:00 109 08/09/17 16:00 87 08/09/17 16:00 98.2 109 21 154/96 (115) 100 08/09/17 14:00 99 08/09/17 12:00 92 08/09/17 12:00 98.4 92 25 152/86 (108) 100 Result Diagram: 08/07/17 0546 08/09/17 0617 Imaging Last Impressions Abdomen/Pelvis CT 08/05/17 0000 Signed Impressions: Service Date/Time: Saturday, August 05, 2017 23:26 - CONCLUSION: 1. No evidence of acute abdominal or pelvic process. No masses are identified. 2. Bladder distention Shemar Ba MD Toe X-Ray [id number]/04/172126 Signed Impressions: Service Date/Time: Friday, August 04, 2017 21:59 - CONCLUSION: 1. No acute bony abnormality. Jensen Rojas MD Chest X-Ray 08/04/17 0000 Signed Impressions: Service Date/Time: Friday, August 04, 2017 21:59 - CONCLUSION: No acute disease. Jensen Rojas MD A/P Problem List: (1) Type 2 DM with ketoacidosis ICD Codes: E13.10 - Other specified diabetes mellitus with ketoacidosis without coma Status: Acute Plan: - Patient reports that she started back on Jardiance last Monday and the last time she was on Jardiance she, "got sick," (had DKA) - Patient's also has an ETOH addition and her daughter was living with her to help her stop drinking recently moved back to [place] Pt was initially admitted to ICU for insulin gtt protocol then transferred to med/surg. Transferred back to ICU on 08/07 for recurrence of her dka off insulin gtt titrate levemir insulin. novolog ssi labs pending replace k and phos aggressively add ranulfo for htn PT daily. plan for snf to snf in next 24hrs if [facility] stays closed. dvt prophylaxis (2) HTN (hypertension) ICD Codes: I10 - Essential (primary) hypertension Status: Chronic Plan: - stop propanolol - start metoprolol 12.5mg BID - add lisinipril (3) Depression ICD Codes: F32.9 - Major depressive disorder, single episode, unspecified Status: Chronic Plan: - seroquel - xanax prn - Consult Psychiatry (4) Anxiety ICD Codes: F41.9 - Anxiety disorder, unspecified Status: Chronic Plan: As above. Problem Qualifiers (1) Type 2 DM with ketoacidosis: Qualified Codes: E11.10 - Type 2 diabetes mellitus with ketoacidosis without coma; Z79.4 - [facility] (current) use of insulin (2) HTN (hypertension): Qualified Codes: I10 - Essential (primary) hypertension (3) Depression: Bakari Hamilton MD Aug 10, 2017 10:03
[2017-08-10] MEDS: LISINOPRIL 5 MG TAB PO SCH ×2 (10:49→22:29)
[2017-08-10 12:00] VITALS: BP 142/79; PULSE 73; RESP 18; TEMP 98.4; O2SAT 96
[2017-08-10] MEDS ORDERED: ALUMINUM/MAGNESIUM/SIMETH 30 ML CUP PO PRN (12:30)
[2017-08-10] MEDS ORDERED: ALUMINUM/MAGNESIUM/SIMETH 30 ML CUP PO ONE (13:30)
[2017-08-10 15:03] LABS: BICARBONATE 25.5 MEQ/L (21.0-32.0); CALCIUM 8.9 MG/DL (8.5-10.1); CREATININE 0.57 MG/DL (0.50-1.00); MAGNESIUM 1.7 MG/DL (1.5-2.5); PHOSPHORUS 2.3 MG/DL (2.5-4.9)
[2017-08-10] MEDS ORDERED: POTASSIUM CHLORIDE 20 MEQ CONTROLLED RELEASE TAB PO ONE (15:30)
[2017-08-10 16:00] VITALS: BP 153/75; PULSE 96; RESP 18; TEMP 98.2; O2SAT 95
[2017-08-10 20:00] VITALS: BP 158/83; PULSE 84; RESP 18; TEMP 98.2; O2SAT 95
[2017-08-10] MEDS: GABAPENTIN 300 MG CAP PO SCH (22:29)
[2017-08-11] VITALS: BP 140/82; PULSE 77; RESP 20; TEMP 98.3; O2SAT 96
[2017-08-11] MEDS: ALPRAZolam 0.5 MG TAB PO PRN ×4 (01:43→18:06)
[2017-08-11] MEDS: ONDANSETRON HCL 4 MG/2 ML VIAL IV PUSH PRN (01:48)
[2017-08-11] MEDS: ACETAMINOPHEN 325 MG TAB PO PRN ×4 (01:49→18:06)
[2017-08-11] MEDS: MUPIROCIN 2% OINT 22 GM TUBE TOPICAL SCH ×3 (03:22→23:18)
[2017-08-11 04:00] VITALS: BP 149/83; PULSE 87; RESP 18; TEMP 98; O2SAT 95
[2017-08-11] MEDS: INSULIN ASPART SUPPLEMENTAL SCALE SQ SCH ×4 (08:00→23:13)
[2017-08-11 08:04] LABS: CALCIUM 8.8 MG/DL (8.5-10.1); CREATININE 0.56 MG/DL (0.50-1.00)
[2017-08-11 08:05] LABS: PHOSPHORUS 3.2 MG/DL (2.5-4.9)
[2017-08-11 08:38] VITALS: BP 96/59; PULSE 77; RESP 18; TEMP 98.6; O2SAT 96
[2017-08-11] MEDS: INSULIN DETEMIR 100 UNITS/ML VIAL SQ SCH ×2 (09:00→23:13)
[2017-08-11] MEDS: PANTOPRAZOLE SOD 40 MG DELAYED RELEASE TAB PO SCH ×3 (09:09→23:16)
[2017-08-11] MEDS: QUEtiapine FUMARATE 25 MG TAB PO SCH ×2 (09:10→23:18)
[2017-08-11] MEDS: LISINOPRIL 5 MG TAB PO SCH (09:10)
[2017-08-11] MEDS: METOPROLOL TARTRATE 25 MG TAB PO SCH ×2 (09:12→23:19)
[2017-08-11] MEDS ORDERED: ALUMINUM/MAGNESIUM/SIMETH 30 ML CUP PO ONE (09:30)
--- NOTE | 2017-08-11 09:31 | HHI.PR ---
Subjective Remarks c/o severe heartburn. "couldn't breath last night" Objective Vitals heart reg lung cta abd s/nt ext no edema Vital Signs Date Time Temp Pulse Resp B/P (MAP) Pulse Ox O2 Delivery O2 Flow Rate FiO2 08/11/17 08:38 98.6 77 18 96/59 (71) 96 08/11/17 04:00 98.0 87 18 149/83 (105) 95 08/11/17 00:00 98.3 77 20 140/82 (101) 96 08/10/17 20:00 98.2 84 18 158/83 (108) 95 08/10/17 16:00 98.2 96 18 153/75 (101) 95 08/10/17 12:00 98.4 73 18 142/79 (100) 96 Result Diagram: 08/07/17 0546 08/11/17 0622 Imaging Last Impressions Abdomen/Pelvis CT 08/05/17 0000 Signed Impressions: Service Date/Time: Saturday, August 05, 2017 23:26 - CONCLUSION: 1. No evidence of acute abdominal or pelvic process. No masses are identified. 2. Bladder distention Shemar Ba MD Toe X-Ray 08/04/172126 Signed Impressions: Service Date/Time: Friday, August 04, 2017 21:59 - CONCLUSION: 1. No acute bony abnormality. Jensen Rojas MD Chest X-Ray 08/04/17 0000 Signed Impressions: Service Date/Time: Friday, August 04, 2017 21:59 - CONCLUSION: No acute disease. Jensen Rojas MD A/P Problem List: (1) Type 2 DM with ketoacidosis ICD Codes: E13.10 - Other specified diabetes mellitus with ketoacidosis without coma Status: Acute Plan: - Patient reports that she started back on Jardiance last Monday and the last time she was on Jardiance she, "got sick," (had DKA) - Patient's also has an ETOH addition and her daughter was living with her to help her stop drinking recently moved back to [place] Pt was initially admitted to ICU for insulin gtt protocol then transferred to med/surg. Transferred back to ICU on 08/07 for recurrence of her dka off insulin gtt titrate levemir insulin. novolog ssi replaced k and phos aggressively. stop. added ranulfo for htn PT daily. add bid ppi. maalox. reasses later today. needs snf...d/c once gi issues stable. (2) HTN (hypertension) ICD Codes: I10 - Essential (primary) hypertension Status: Chronic Plan: - stop propanolol - start metoprolol 12.5mg BID - add lisinipril (3) Depression ICD Codes: F32.9 - Major depressive disorder, single episode, unspecified Status: Chronic Plan: - seroquel - xanax prn - Consult Psychiatry (4) Anxiety ICD Codes: F41.9 - Anxiety disorder, unspecified Status: Chronic Plan: As above. Problem Qualifiers (1) Type 2 DM with ketoacidosis: Qualified Codes: E11.10 - Type 2 diabetes mellitus with ketoacidosis without coma; Z79.4 - [facility] long term care (current) use of insulin (2) HTN (hypertension): Qualified Codes: I10 - Essential (primary) hypertension (3) Depression: Bakari Hamilton MD Aug 11, 2017 09:31
[2017-08-11 12:05] VITALS: BP 104/63; PULSE 78; RESP 18; TEMP 97.4; O2SAT 98
[2017-08-11] MEDS: SIMETHICONE 125 MG CHEWABLE TAB PO SCH ×3 (14:01→23:16)
[2017-08-11 16:43] VITALS: BP 89/59; PULSE 86; RESP 18; TEMP 97.7; O2SAT 98
[2017-08-11 21:05] VITALS: BP 154/97; PULSE 99; RESP 18; TEMP 97.7; O2SAT 98
[2017-08-11] MEDS: GABAPENTIN 300 MG CAP PO SCH (23:17)
[2017-08-12 00:40] VITALS: BP 127/72; PULSE 81; RESP 18; TEMP 97.6; O2SAT 98
[2017-08-12] MEDS: MUPIROCIN 2% OINT 22 GM TUBE TOPICAL SCH ×2 (04:59→12:00)
[2017-08-12 05:12] VITALS: BP 99/60; PULSE 85; RESP 18; TEMP 97.6; O2SAT 95
[2017-08-12] MEDS: SIMETHICONE 125 MG CHEWABLE TAB PO SCH ×2 (06:00→14:00)
[2017-08-12 08:00] VITALS: BP 121/69; PULSE 86; RESP 16; TEMP 97.7; O2SAT 96
[2017-08-12] MEDS: INSULIN ASPART SUPPLEMENTAL SCALE SQ SCH ×2 (08:00→13:32)
[2017-08-12] MEDS ORDERED: INSULIN DETEMIR 100 UNITS/ML VIAL SQ SCH ×2 (09:00→21:00)
[2017-08-12] MEDS: PANTOPRAZOLE SOD 40 MG DELAYED RELEASE TAB PO SCH (09:00)
[2017-08-12] MEDS ORDERED: PANT40TA3 PO (10:08)
[2017-08-12] MEDS ORDERED: ALPR.5 PO (10:08)
[2017-08-12] MEDS ORDERED: LEVEMIR SQ ×2 (10:08)
[2017-08-12] MEDS ORDERED: METO25TA3 PO (10:08)
[2017-08-12] MEDS ORDERED: Mupirocin 2% Oint TOPICAL (10:08)
[2017-08-12] MEDS ORDERED: SIME125 PO (10:08)
--- NOTE | 2017-08-12 10:09 | HHI.DCPOC ---
Discharge Care Plan Diagnosis: (1) Diabetic ketoacidosis (2) Anxiety (3) HTN (hypertension) (4) Hepatitis C Goals to Promote Your Health * To prevent worsening of your condition and complications * To maintain your health at the optimal level Directions to Meet Your Goals Take your medications as prescribed Follow your dietary instruction Follow activity as directed Keep your appointments as scheduled Take your immunizations and boosters as scheduled If your symptoms worsen call your PCP, if no PCP go to Urgent Care Center or Emergency Room Smoking is Dangerous to Your Health. Avoid second hand smoke Call the 24-hour hour crisis hotline for domestic abuse at Bakari Hamilton MD Aug 12, 2017 10:09
[2017-08-12] MEDS: QUEtiapine FUMARATE 25 MG TAB PO SCH (10:10)
[2017-08-12] MEDS: METOPROLOL TARTRATE 25 MG TAB PO SCH (10:10)
--- NOTE | 2017-08-12 10:14 | HHI.DS ---
Discharge Summary Admission Date Aug 04, 2017 at 22:30 Admitting Diagnosis Diabetic ketoacidosis (1) Type 2 DM with ketoacidosis Diagnosis: Principal ICD Codes: E13.10 - Other specified diabetes mellitus with ketoacidosis without coma Status: Acute (2) HTN (hypertension) Diagnosis: Secondary ICD Codes: I10 - Essential (primary) hypertension Status: Chronic (3) Depression Diagnosis: Secondary ICD Codes: F32.9 - Major depressive disorder, single episode, unspecified Status: Chronic (4) Anxiety Diagnosis: Secondary ICD Codes: F41.9 - Anxiety disorder, unspecified Status: Chronic (5) Hepatitis C Diagnosis: Secondary ICD Codes: B19.20 - Unspecified viral hepatitis C without hepatic coma Status: Chronic Brief History 62-year-old female with diabetes who is known to me from previous admission presents to the ER with 3 day history of nausea vomiting and increased weakness at home. She reports that she felt a little ill approximately a week ago but did not want to alarm her daughter who was leaving to go back home to [place]. This past Monday however she started vomiting and has had multiple episodes of vomiting since that point. She has not been able to keep much fluid down at home. It is noted that she reportedly resumed her Jardiance approximately 2 weeks ago. She denies any fevers or chills. She has had slight intermittent headache. Denies any neck pain or vision change. No recent foreign travel or unusual foods. No new herbals or other medication that are unusual for her. Denies any dysuria or hematuria. Denies any cough or hemoptysis. She does note that her emesis has been somewhat dark. She denies any diarrhea and actually reports that she has been somewhat constipated over the last 4 weeks. On eval in ER her labs were consistent with diabetic ketoacidosis which is a recurrent problem for her. She has been started on the DKA protocol and was transferred to the intensive care unit. She is currently alert and awake. Her biggest complaint now is that she is thirsty and would like more water. She does continue to have nausea vomiting. She has remained somewhat tachycardic overnight as well. CBC/BMP: 08/11/17 0622 Significant Findings Laboratory Tests Test 08/10/17 13:22 08/11/17 06:22 Random Glucose 173 MG/DL (74-106) 153 MG/DL (74-106) Phosphorus Level 2.3 MG/DL (2.5-4.9) Potassium Level 3.3 MEQ/L (3.5-5.1) Hospital Course (1) Type 2 DM with ketoacidosis - Patient reports that she started back on Jardiance last Monday and the last time she was on Jardiance she, "got sick," (had DKA) - Patient's also has an ETOH addition and her daughter was living with her to help her stop drinking recently moved back to [place] Pt was initially admitted to ICU for insulin gtt protocol then transferred to med/surg. Transferred back to ICU on 08/07 for recurrence of her dka off insulin gtt titrating levemir insulin. novolog ssi. currently on 30u AM and 20u hs. avoid jardiance as it may be causing dka replaced k and phos aggressively. added ranulfo for htn but bp wasn't tolerating it. PT daily. add bid ppi. maalox prn for gerd/. pt says she feels "great today" and is ready for snf. will call pcp. (2) HTN (hypertension) ICD Codes: I10 - Essential (primary) hypertension Status: Chronic Plan: - stop propanolol - started metoprolol 12.5mg BID - (3) Depression ICD Codes: F32.9 - Major depressive disorder, single episode, unspecified Status: Chronic Plan: - seroquel - xanax prn - Consulted Psychiatry (4) Anxiety ICD Codes: F41.9 - Anxiety disorder, unspecified Status: Chronic Plan: As above. Pt Condition on Discharge: Stable Discharge Disposition: Discharge to SNF Discharge Instructions DIET: Follow Instructions for: Diabetic Diet Activities you can perform: Regular-No Restrictions Follow up Referrals: PCP Follow-up - 2 Weeks with [facility] New Medications: Insulin Detemir Inj (Levemir Inj) 1,000 unit/ 10 ML Vial 20 UNITS SQ HS for diabetes for 30 Days, INJECTION Do not mix with any other Insulin. Insulin Detemir Inj (Levemir Inj) 1,000 unit/ 10 ML Vial 30 UNITS SQ DAILY for diabetes for 30 Days, INJECTION Do not mix with any other Insulin. Metoprolol Tartrate (Metoprolol Tartrate) 25 Mg Tab 12.5 MG PO Q12HR for Blood Pressure Management, #60 TAB Pantoprazole (Pantoprazole) 40 Mg Tab 40 MG PO BID for gerd for 30 Days, #60 TAB Simethicone (Gas Relief Extra Strength) 125 Mg Chw 125 MG PO Q8HR for gas for 7 Days, EA [Mupirocin 2% Oint] () 22 APPLIC/22 GM OINT 1 APPLIC TOPICAL Q8H for 10 Days apply to great toes bilaterally Changed Medications: Alprazolam (Xanax) 0.5 Mg Tab 0.5 MG PO Q6HR PRN for ANXIETY, #20 TAB 0 Refills (Changed from: Q4H) Continued Medications: Gabapentin (Gabapentin) 300 Mg Cap 300 MG PO HS, #30 CAP 0 Refills Quetiapine (Quetiapine) 25 Mg Tab 25 MG PO BID for mood d/o, #60 TAB Discontinued Medications: Propranolol (Propranolol) 10 Mg Tab 10 MG PO Q12HR, #60 TAB 0 Refills Bakari Hamilton MD Aug 12, 2017 10:14
[2017-08-12 12:00] VITALS: BP 99/64; PULSE 82; RESP 16; TEMP 97.5; O2SAT 94
== END 2017-08-12 15:12 | DRG 639 ==
LOC: PHED 20:23 → PHEDA 22:30 → HIMN 23:55 → N07B 08-06 19:19 → HIMW 08-07 10:40 → N05B 08-09 20:27
PROVIDERS: ADMIT Hospitalist; ATTEND Hospitalist
DX: E11.10 Type 2 diabetes mellitus with ketoacidosis without coma (principal); I10 Essential (primary) hypertension; F32.9 Major depressive disorder, single episode, unspecified; E11.42 Type 2 diabetes mellitus with diabetic polyneuropathy; F41.9 Anxiety disorder, unspecified; B18.2 Chronic viral hepatitis C; F10.11 Alcohol abuse, in remission; Z88.8 Allergy status to other drugs, medicaments and biological substances; Z88.5 Allergy status to narcotic agent; Z79.891 Long term (current) use of opiate analgesic; Z79.899 Other long term (current) drug therapy; Z87.891 Personal history of nicotine dependence
CPT/HCPCS: 71045; 73660; 74176; 76937; 80048; 80053; 81001; 82010; 82805; 82948; 83036; 83605; 83690; 83735; 84100; 84132; 84155; 84443; 85025; 87040; 87641; 87804; 96360; C9113; J0780; J1815; J1817; J2405; J3480; J7030; J7042; J7050